=== PATIENT | male | born 1975 | race Caucasian/White ===

== ENCOUNTER 2022-03-26 19:34 | Emergency (ER) | payer SELFPAY ==
--- NOTE | ~2022-03-26 | XR_ITS ---
EXAMINATION: XR shoulder RT min 2V CLINICAL INFORMATION: Reason for Exam injury COMPARISON: None. TECHNIQUE: Three views of the shoulder FINDINGS: No acute fracture or dislocation. Mild degenerative changes of the acromioclavicular joint. Glenohumeral joint space is maintained. No soft tissue abnormality. XR/XR shoulder RT min 2V IMPRESSION: 1. No acute fracture or dislocation. 2. Mild degenerative changes of the acromioclavicular joint.
[2022-03-26 19:37] VITALS: BP 142/93; PULSE 82; RESP 17; TEMP 36.6; O2SAT 98; BMI 30.2
--- NOTE | 2022-03-26 20:24 | ED.EXTPRO ---
HPI - Extremity Problem General Chief complaint: Extremity Injury, Upper Stated complaint: fell right shoulder pain Time Seen by Provider: 03/26/22 20:24 Source: patient Mode of arrival: ambulatory Limitations: no limitations History of Present Illness HPI Narrative: 46-year-old male presents with right shoulder pain and decreased range of motion after falling into his car door at 18:00 tonight. He states this is a mechanical fall, and has had no prodromal events leading to the fall. He states pain is a deep pain and is right behind the ball of the shoulder. He has full range of motion to the elbows and wrists, but cannot adduct and abduct the shoulder. Does not report any other injuries at this time. MD Complaint: extremity pain Onset (ago): hour(s) (Several hours prior to arrival) Pain Consistency: constant Location: right and upper extremity Severity scale (1-10): 8 Quality: aching and constant Radiation: none Relieving factors: rest Exacerbating factors: range of motion and palpation Associated symptoms: denies other symptoms Related Data Previous Rx's Medication Instructions Recorded ibuprofen 600 mg tablet 600 mg PO Q6H PRN pain #60 tabs 03/26/22 Allergies Allergy/AdvReac Type Severity Reaction Status Date / Time No Known Allergies Allergy Verified 03/26/22 21:31 Review of Systems Review of Systems: Constitutional: No Fever, No Chills ENT/Mouth: No Ear Pain, No Hoarseness, No sore throat Eyes: No Eye Pain, No Swelling, No Redness, No Foreign Body Cardiovascular: No Chest Pain, No SOB Respiratory: No Cough, No Dyspnea Gastrointestinal: No Nausea, No Vomiting, No Diarrhea, No abdominal Pain Genitourinary: No Dysuria, No Hematuria Musculoskeletal: positive right shoulder pain, No Myalgias, No Joint Swelling Skin: No Skin lacerations, No rash Neuro: No Weakness, No Numbness, No Paresthesias, No Loss of Consciousness, No Dizziness, No Headache Psych: No Anxiety/Panic, No Depression Heme/Lymph: no easy bruising, no Lymphadenopathy Endocrine: No Polyuria, No Polydipsia Yes all other systems are reviewed and are negative [facility] Past Medical History Attestation statement: The following information was validated with the patient. Source: old records reviewed Social History Social History Advance Directives: No Physical Exam Vital Signs: Vital Signs: Last Vital Signs Temp 99.7 F 03/26/22 21:11 Pulse 70 03/26/22 21:11 Resp 20 03/26/22 21:11 BP 131/79 03/26/22 21:11 Pulse Ox 100 03/26/22 21:11 O2 Del Method 03/26/22 21:11 BMI result Body Mass Index 30.2 Appearance: Alert. Oriented X3. No acute distress. Eyes: Pupils equal, round and reactive to light. ENT: Pharynx normal. Neck: Normal inspection. Neck supple. CVS: Normal heart rate and rhythm. Pulses normal. Respiratory: No respiratory distress. Breath sounds normal. Abdomen: Soft and nontender. Skin: Skin warm and dry. Normal skin color. Normal skin turgor. Extremities: No bruising wounds or lesions to the right upper extremity. Decreased adduction abduction to the right shoulder. Equal admin dir strength, brisk capillary refill, positive CMS. Neuro: No motor deficit. No sensory deficit. Cranial nerves 2-12 intact. Course Course Course Narrative: 46-year-old male presents with right shoulder pain after falling into his car door. States that the pain is a deep pain and in the back of the ball of the shoulder joint. Is having a difficult time with range of motion, has had prior to the shoulder. X-rays while patient was in the emergency department rating room are negative for acute findings however does show some degenerative changes. Patient has decreased active range of motion, and pain on passive range of motion with flexion extension adduction and abduction of the shoulder. Patient has decreased range of motion inability to adduct and abduct the evening to believe that there is suspicion for rotator injury. will place patient in a sling and have patient follow-up with orthopedics. Patient is neurovascularly intact. Brisk capillary refill. Equal pulses. Patient verbalized understanding of and agrees plan of care discharge home. Verbalized understanding of signs and symptoms indicating need for emergent intervention. MDM - Extremity (Nontraumatic) MDM Narrative Medical decision making narrative: Dislocation, fracture, effusion, rotator cuff tear, labrum tear Medical Records Attestation: I reviewed the patient's medical records. Imaging Data shoulder x ray: Attestation: I personally reviewed and interpreted this imaging study as follows: Radiologist's impression: EXAMINATION: XR shoulder RT min 2V CLINICAL INFORMATION: Reason for Exam injury COMPARISON: None. TECHNIQUE: Three views of the shoulder FINDINGS: No acute fracture or dislocation. ? Mild degenerative changes of the acromioclavicular joint. Glenohumeral joint space is maintained. No soft tissue abnormality. XR/XR shoulder RT min 2V IMPRESSION: 1.? No acute fracture or dislocation. 2.? Mild degenerative changes of the acromioclavicular joint. Discharge Plan Discharge Clinical Impression: Injury of right rotator cuff, Degenerative joint disease of shoulder Patient Disposition: Home, Self-Care Instructions: Rotator Cuff Injury (ED), Arthritis (ED) Additional Instructions: You were evaluated for a shoulder injury. You have a suspected rotator cuff injury. Please follow-up with orthopedics for evaluation. Call and request appointment. Take Motrin 600 mg every 6 hours as needed for pain management, alternate with Tylenol 650 mg every 6 hours. Write down what time you take these medications to prevent accidental overdose. Use sling as needed for comfort. Thank you for choosing this emergency department for evaluation. Please follow-up with primary care physician as needed. Return to the emergency department for any new, concerning, or worsening symptoms. Prescriptions: New ibuprofen 600 mg tablet 600 mg PO Q6H PRN (Reason: pain) Qty: 60 0RF Referrals: Joey Serrano MD [Physician] - 1 week (Suspected right rotator cuff tear) Interventions: ED Discharge Assessment Last Done: 03/26/22 21:58 Discharge Date/Time: 03/26/22 22:00
[2022-03-26 21:11] VITALS: BP 131/79; PULSE 70; RESP 20; TEMP 37.6; O2SAT 100
[2022-03-26] MEDS: Ibuprofen 800 MG TABLET PO (21:41)
== END 2022-03-26 22:00 | disposition home or self-care (01) ==
PROVIDERS: Emergency Provider Emergency Medicine Emergency Medical Services
DX: S46.001A Unspecified injury of muscle(s) and tendon(s) of the rotator cuff of right shoulder, initial encounter (principal); M19.011 Primary osteoarthritis, right shoulder; X58.XXXA Exposure to other specified factors, initial encounter; Y93.9 Activity, unspecified; Y92.9 Unspecified place or not applicable; Y99.9 Unspecified external cause status
CPT/HCPCS: 73030; 99283

== ENCOUNTER → 2022-04-25 09:06 | Outpatient (BNVA) | payer SELFPAY | PROVIDERS: Visit Provider Physician Assistant | DX: S46.001A Unspecified injury of muscle(s) and tendon(s) of the rotator cuff of right shoulder, initial encounter (principal) | CPT/HCPCS: 99202 ==

== ENCOUNTER 2022-07-11 07:13 | Outpatient (REF) | payer OTHER, SELFPAY ==
--- NOTE | ~2022-07-11 | MR_ITS ---
EXAMINATION: MR SHOULDER WITHOUT CONTRAST, RIGHT CLINICAL INFORMATION: Right shoulder pain, decreased range of motion, and weakness. Injury 2 months ago. Rotator cuff tendon injury. COMPARISON: Right shoulder radiographs dated 03/26/2022. TECHNIQUE: MRI of the shoulder without contrast was performed on a high-field scanner. FINDINGS: ROTATOR CUFF: Complete, full-thickness supraspinatus tendon tear and near-complete full-thickness tearing of the infraspinatus tendon. Overall tearing measures up to 4.3 x 4.9 cm (AP by ML) with the torn tendon fibers retracted proximal to the humeral head apex. There are thin posterior infraspinatus tendon fibers remaining intact. Mild subscapularis tendinosis with distal articular surface partial tearing measuring 2.8 cm in ML dimension. Mild infraspinatus muscle atrophy. BICEPS: Intact. CORACOACROMIAL ARCH: The undersurface of the acromion is curved with subacromial spurring. Mild acromioclavicular osteoarthritis. LABRUM/CAPSULE: Heterogeneous signal within the undersurface of the superior labrum, consistent with nondisplaced degenerative tearing. Intact inferior joint capsule. GLENOHUMERAL JOINT/MARROW: Glenohumeral articular cartilage thinning with small marginal osteophytes. Moderate joint effusion. MR/MR shoulder RT wo con IMPRESSION: 1. Complete, full-thickness tear of the supraspinatus tendon with near-complete full-thickness tearing of the infraspinatus tendon. The torn tendon fibers are retracted proximal to the humeral head apex. Mild infraspinatus muscle atrophy. Mild subscapularis tendinosis with distal articular surface partial tearing. 2. Mild acromioclavicular osteoarthritis with subacromial spurring. 3. Nondisplaced undersurface degenerative tearing of the superior labrum. 4. Mild glenohumeral osteoarthritis. Moderate joint effusion.
== END 2022-07-11 07:14 | disposition home or self-care (01) ==
LOC: HO.MRI 07:13
PROVIDERS: Visit Provider Physician Assistant
DX: S46.001A Unspecified injury of muscle(s) and tendon(s) of the rotator cuff of right shoulder, initial encounter (principal)
CPT/HCPCS: 73221

== ENCOUNTER → 2022-07-29 10:41 | Outpatient (BNVA) | payer OTHER, SELFPAY | PROVIDERS: Visit Provider Orthopaedic Surgery | DX: Z13.89 Encounter for screening for other disorder (principal) ==

== ENCOUNTER → 2022-08-24 09:29 | Day surgery (SDC) | payer OTHER, SELFPAY ==
--- NOTE | 2022-08-23 09:58 | P.CONAN_ITS ---
Documented by User: Annie Garcia NP 08/23/22 12:22 HPI - Anesthesia Eval Consult details Narrative: 46yo M for Right Arthroscopic Rotator Cuff Repair *Allergies to opiates, fentanyl, and propofol* T/C with patient. Had rash and itching with finger amp revision in 2004. Received fentanyl and propofol only. States gets rash and itching with opiates. Was on oxycodone for years and needed to take benadryl with it. Likely fentanyl caused reaction. Had knee surgery in 2018 without reaction. Anesthesia record requested from [facility]. Anesthesia record reviewed. (No propofol or fentanyl. Etomidate used.) Case discussed with Dr Figueroa. Preop benadryl. [facility] Active Problems Active Problems: All Active Problems (Updated 07/29/22 @ 11:11 by Mainor Barclay) Right rotator cuff tear arthropathy (Acute) Injury of right rotator cuff (Acute) Past Medical History Medical History (Updated 07/29/22 @ 11:11 by Mainor Barclay) History of amputation of finger Surgical History Surgical History (Updated 07/29/22 @ 10:50 by Mainor Barclay) Hx of right knee surgery Social History Social History Patient Tobacco Use Status: Never used Tobacco Use of substances other than those prescribed or required for medical reasons: No Are you DNR?: No Advance Directives: No Advance Directives Information Provided: Yes Recently lost weight without trying: No Nutrition Risks: No Nutritional Risk Current occupational status: employed 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, 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 Meds Allergies Allergy/AdvReac Type Severity Reaction Status Date / Time fentanyl Allergy hives Verified 07/29/22 10:43 propofol Allergy Itching, Verified 08/18/22 16:37 Rash acetaminophen AdvReac Unknown Liver Verified 08/23/22 10:04 damage opiates AdvReac Itching Uncoded 08/18/22 16:37 Exam Exam Date and Time: August 23, 2022 0958 Assessment and Plan Assessment Anesthesia Assessment: Chart Reviewed Documented by User: Donovan Jewell MD 08/24/22 11:28 [facility] Past Medical History Medical History (Updated 07/29/22 @ 11:11 by Mainor Barclay) History of amputation of finger Family History Family history of problems with anesthesia: No Surgical History Surgical History (Updated 07/29/22 @ 10:50 by Mainor Barclay) Hx of right knee surgery History of Problems with Anesthesia: No Social History Social History Patient Tobacco Use Status: Never used Tobacco Use of substances other than those prescribed or required for medical reasons: No Are you DNR?: No Advance Directives: No Advance Directives Information Provided: Yes Recently lost weight without trying: No Nutrition Risks: No Nutritional Risk Current occupational status: employed 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, 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 Meds Allergies Allergy/AdvReac Type Severity Reaction Status Date / Time fentanyl Allergy hives Verified 07/29/22 10:43 propofol Allergy Itching, Verified 08/18/22 16:37 Rash acetaminophen AdvReac Unknown Liver Verified 08/23/22 10:04 damage opiates AdvReac Itching Uncoded 08/18/22 16:37 Exam Airway Mallampati Class: II TM Dist: >3cm Neck ROM: Full Heart: rrr Lungs: cta Assessment and Plan Final Anesthetic Review Family History of Problems with Anesthesia: No History of Problems with Anesthesia: No NPO: Yes ASA Class: II Patient Risk: Intermediate Procedure Risk: Intermediate Anesthetic Plan Anesthetic Plan: GA and Regional Block Disposition: Standard PACU
[2022-08-24] VITALS (7 sets, daily range): BP systolic 112–143; BP diastolic 68–88; PULSE 42–78; RESP 16; TEMP 36.5–36.7; O2SAT 98–100; BMI 29.7
[2022-08-24] MEDS: diphenhydrAMINE HCL 25 MG CAPSULE 50 MG PO (10:33)
[2022-08-24] MEDS: Lactated Ringers 1,000 ML 100 ML IVCONT (10:33)
--- NOTE | 2022-08-24 12:19 | MHC.SHP ---
Pre-Procedural Eval Section A Date of Service: 08/24/22 The patient is an INPATIENT: No Changes since office visit: No Cold of Flu in the past 2 weeks, No New Medical Problems, No Changes in Medication and No Patient answered all questions The History & Physical has been completed within 30 days and I have reviewed it.: Yes Section B Chief Complaint: Unspecified rotator cuff tear or rupture of right Allergies: Allergies Allergy/AdvReac Type Severity Reaction Status Date / Time fentanyl Allergy hives Verified 07/29/22 10:43 propofol Allergy Itching, Verified 08/18/22 16:37 Rash acetaminophen AdvReac Unknown Liver Verified 08/23/22 10:04 damage opiates AdvReac Itching Uncoded 08/18/22 16:37 Plan I have reviewed the history and physical and performed a pertinent physical examination on my patient. No changes have occurred unless specified. Time Spent With Patient Time: Total time managing care of this patient today ____ minutes.
--- NOTE | 2022-09-02 16:32 | P.BOP_ITS ---
Brief Operative Note Date of Service: 08/24/22 Pre-op diagnosis: Right RTC tear Post-op diagnosis: other (Massive RTC tear, right) Procedure: 1) Repair superior RTC cuff 2) Repair subscapularis Implants: Mantilla and Nephew helacoil x 5 [employer]enton Bioinductive collagen implant, Mantilla and Nephew Surgeon: Joey Serrano MD Anesthesia: GETA and regional Was an Rope Making Machine Operator used for this Procedure?: Yes Rope Making Machine Operator: Reina Aguirre Estimated blood loss (mL): 5 IV fluids (mL): 1,000 Pathology: none sent Condition: stable Disposition: PACU
--- NOTE | 2022-09-02 16:35 | W.PM.OPN ---
Operative Note Operative Note Date of Service: 08/24/22 Narrative: Date of Service: 08/24/22 Pre-op diagnosis: Right RTC tear Post-op diagnosis: other (Massive RTC tear, right) Procedure: 1) Repair superior RTC cuff 2) Repair subscapularis Implants: Mantilla and Nephew helacoil x 5 [employer]enton Bioinductive collagen implant, Mantilla and Nephew Surgeon: Joey Serrano MD Anesthesia: GETA and regional Was an Maintenance Mechanic 2Nd Shift used for this Procedure?: Yes Maintenance Mechanic 2Nd Shift: Reina Aguirre Estimated blood loss (mL): 5 IV fluids (mL): 1,000 Pathology: none sent Condition: stable Disposition: PACU Procedure in detail:? Patient was brought to the operating room and placed the the beach chair position. All bony prominences were well padded and the limb was prepped and draped in standard sterile fashion. A time out was called to identify proper site, proper procedure and proper surgeon. IV antibiotics per weight were administered. I began by making a posterolateral stab incision with a 15 blade. A blunt trochar was placed into the glenohumeral joint and I insufflated the joint with saline and a 30 degree arthroscope was placed. I established an outside- in anterior portal just distal to the biceps tendon. I then began my inspection of the glenohumeral joint. There was biceps and biceps-labral anchor with a large SLAP tear with G1 change at the inferior glenoid without associated humeral head changes. There was a full thickness undersurface RTC tear. The subcapularis had a high-grade partial thickness tear. I debrided the loose cartilage of the glenoid and the degenerative labral tearing. A biceps tenotomy was performed. I then debrided the subscapularis humeral attachment site and placed threelooped suture into the subscapularis and brought it to the insertion site with the arm internally rotated. There was excellent reproduction of the normal anatomy. I then removed the trochar and entered the subacromial space. A direct lateral portal was then established and I performed a bursectomy. The cuff was then examined. There was a retracted tear of the supra and infraspinatus with retraction.The tear was mobile (suprisingly) to the bare area. I released the suscapularis anterioly and superiorly.? I then placed two medial row double loaded anchors and then brought the suture tape through the medial cuff. I added two looped sutures at the anterior and posterior most aspect of the tear. I then debrided the bare area down to bleeding bone and, using a cross bridge configuration, brought the limbs to each of 3 lateral 5.0 anchors. This re-approximated the cuff anatomy near anatomically. Because of the tissue quality and the extent of the tear a bio-inductive collagen implnat was placed over the repaiur and tacked down with PEEK stapleds medially and 2 bone anhors laterally. I was satisfied with the repair and the position of the collagen allograft. I then performed a 5 mm subacromial decompression. Once I was satisfied with the repair final images were captured and I removed all instrumentation. Portals were closed with nylon. Patient was placed in an abduction sling, extubated and brought to the recovery room in stable condition. There were no known complications. Large RTC rehab protocol
== END | disposition home or self-care (01) ==
PROVIDERS: Visit Provider Orthopaedic Surgery
PROC: (CPT 29827; principal; 2022-08-24 11:40)
DX: M75.101 Unspecified rotator cuff tear or rupture of right shoulder, not specified as traumatic (principal); M19.011 Primary osteoarthritis, right shoulder; M25.411 Effusion, right shoulder; Z87.828 Personal history of other (healed) physical injury and trauma; Z88.8 Allergy status to other drugs, medicaments and biological substances
CPT/HCPCS: 29827; 29826; C1713; J0171; J0690; J1100; J1885; J2405

== ENCOUNTER → 2022-08-26 10:08 | Outpatient (BNVA) | payer OTHER, SELFPAY | PROVIDERS: Visit Provider Physician Assistant ==

== ENCOUNTER → 2022-09-01 11:06 | Outpatient (BNVA) | payer OTHER, SELFPAY | PROVIDERS: Visit Provider Physician Assistant ==

== ENCOUNTER → 2022-09-30 11:11 | Outpatient (BNVA) | payer OTHER, SELFPAY | PROVIDERS: Visit Provider Physician Assistant ==

== ENCOUNTER 2022-10-14 13:00 | Outpatient (RCR) | payer OTHER, SELFPAY ==
--- NOTE | 2022-08-26 12:15 | MHC.PT.EP ---
[facility] [place] Office [place] Office [place] Office [address] Mary Jo Christy [address] [phone] F: [phone] F: [phone] F: [phone] F: [phone] Physical Therapy Plan of Care Date of Evaluation: Date of Surgery: 08/24/22 Diagnosis: R RTC TEAR Assessment: Pt IS 46 YO M REFERRED TO PT FROM [facility]) PO R RTC REPAIR ON (2 DAYS AGO). NO SURGICAL REPORT IN CHART YET, BUT PER MRI Pt WITH R SUPRASPINATUS, INFRASPINATUS AND LABRAL TEARS. THIS PT TIGERTEXTED DR STALLINGS TO SEE WHICH TISSUES WERE REPAIRED. HE SAID LARGE RTC TEAR WITH SUBSCAPULARIS REPAIR.. Pt PRESENTS WITH SIGNIFICANT PAIN (REPORTS BLISTERS AND WARMTH AROUND DSG..HE CALLED ORTHO AND IS GOING IMMED AFTER PT), LIMITED ROM AND STRENGTH R UE. SHOULD BENEFIT FROM PT TO ADDRESS THESE ISSUES Frequency and Duration: The patient will be seen 2X/WK X 12 WKS Short Term Goals: 1. INCREASED AWARENESS SHOULDER CARE AND POSTURE 2. PROM R SHLDER FLEX TO 90, ER TO NEUTRAL, ABD TO 90 3. IMPROVED SLEEP Hand Hide Stretcher Goals: 1 I HEP WITH DC EX PLAN 2. FULL AROM R SHLDER 3. INCREAESED USE R UE FOR FUNCTIONAL ADLS 4. DECREASED R SHLDER PAIN TO NO GREATER THAN 3/10 Treatment Plan: Modalities to reduce pain, spasms and effusion. Manual therapy to restore motion and function. Therapeutic exercise to improve strength and flexibility. Neuromuscular re-education for posture and balance. Therapeutic activities to return to functional activities of daily living. Electronically signed by: KRANTHI GRIMES PT Please sign and return to therapist. Thank you for your referral.
--- NOTE | 2022-11-04 11:01 | MHC.PT.DC ---
[facility] [place] Office [place] Office [place] Office [address] Mary Jo Christy [address] [phone] F: [phone] F: [phone] F: [phone] F: [phone] Physical Therapy Discharge Report Diagnosis: R RTC TEAR. S/P SURGERY WITH BICEPS TENOTOMY 08/24/22 Date of Surgery: 08/24/22 Date of Evaluation: 08/26/22 Date of Discharge: 11/04/22 Treatments to Date: 9 Cancellations to Date: No Shows to Date: Discharge Status: Improved Function Independent with HEP Patient Elected to Stop Recommend MD Follow-up Discharge Summary: PER ASSESSMENT FROM LAST APPT ON 10/14/22 (3 WKS AGO :'HAS MET STGS PROGRESSING THROUGH RC PROTOCOL. CONTINUES WITH LIMITED ROM AND STRENGTH WITH MIN PAIN REPORTED. WOULD BENEFIT FROM CONTINUED PT 1X/WK X 6 WKS FOR CONTINUED PROGRESSION THROUGH PROTOCOL FOR ROM, STRENGTH AND FUNCTIONAL MOBILITY' WITH PLAN Pt DID NOT COME IN FOR FURTHER VISITS AND CALLED TO SELF DC. HAS ORTHO FU Electronically signed by: KRANTHI GRIMES PT Please sign and return to therapist. Thank you for your referral.
== END 2022-11-04 11:02 | disposition home or self-care (01) ==
LOC: HO.PT 13:00
PROVIDERS: Visit Provider Physician Assistant
DX: S46.001D Unspecified injury of muscle(s) and tendon(s) of the rotator cuff of right shoulder, subsequent encounter (principal)
CPT/HCPCS: 97110; 97140; 97162; 97535

== ENCOUNTER → 2022-11-11 11:31 | Outpatient (BNVA) | payer OTHER, SELFPAY | PROVIDERS: Visit Provider Orthopaedic Surgery | DX: M51.36 Other intervertebral disc degeneration, lumbar region (principal); Z98.890 Other specified postprocedural states | CPT/HCPCS: 99212 ==

== ENCOUNTER 2022-11-30 17:50 | Outpatient (REF) | payer OTHER, SELFPAY | END 2022-11-30 17:51 | disposition home or self-care (01) | LOC: HO.MRI 17:50 | PROVIDERS: Visit Provider Orthopaedic Surgery | DX: M51.36 Other intervertebral disc degeneration, lumbar region (principal) | CPT/HCPCS: 72148 ==

== ENCOUNTER 2023-03-03 09:41 | Outpatient (AMB) | payer OTHER, SELFPAY ==
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
== END 2023-03-03 10:24 | disposition home or self-care (01) ==
PROVIDERS: PCP Nurse Practitioner; Referring Provider Orthopaedic Surgery; Visit Provider Physician Assistant
DX: M51.36 Other intervertebral disc degeneration, lumbar region (principal)
CPT/HCPCS: 99204

== ENCOUNTER → 2023-03-03 09:41 | Outpatient (BNVA) | payer OTHER, SELFPAY | PROVIDERS: Referring Provider Orthopaedic Surgery; Visit Provider Physician Assistant ==

== ENCOUNTER 2025-04-06 20:04 | Emergency (ER) | payer OTHER, SELFPAY ==
--- NOTE | ~2025-04-06 | XR_ITS ---
CLINICAL HISTORY: worsening fracture 3 view left ankle Comparison: None provided Findings: Acute mildly displaced fracture of the lateral malleolus. No significant loss of joint space, osteophytes, or erosions. No ankle effusion. No radiopaque foreign body. IMPRESSION: Acute mildly displaced fracture of the lateral malleolus. This document has been electronically signed by: Georgette Herring MD on 04/06/2025 22:21:45
[2025-04-06 20:28] VITALS: BP 156/90; PULSE 84; RESP 18; TEMP 36.6; O2SAT 96; BMI 30.8
--- NOTE | 2025-04-06 20:30 | ED.GENADULT ---
HPI - General Adult General Chief complaint: Extremity Injury, Lower Stated complaint: left ankle; left knee injury Time Seen by Provider: 04/06/25 22:44 Source: patient Mode of arrival: ambulatory Limitations: no limitations History of Present Illness ED Provider: DR. Porras HPI narrative: a 49-year-old male s/p fall 2 days ago had fraction of the left ankle seen and evaluated at a local hospital in [place] patient was immobilized with a splint and was advised to return next week for orthopedic surgery. Patient came back home in [place] yesterday complaining of severe left ankle pain. Related Data Home Medications ?Medication ?Instructions ?Recorded ?Confirmed naproxen sodium 220 mg tablet 220 mg PO Q12H PRN 09/30/22 (Aleve) Allergies Allergy/AdvReac Type Severity Reaction Status Date / Time fentanyl Allergy hives Verified 04/06/25 20:37 propofol Allergy Itching, Verified 04/06/25 20:37 Rash acetaminophen AdvReac Unknown Liver Verified 04/06/25 20:37 damage opiates AdvReac Itching Uncoded 04/06/25 20:37 Review of Systems Review of Systems: All other systems are reviewed and are negative Constitutional: Reports as per HPI and Reports no additional constitutional complaints Eyes: Reports as per HPI and Reports no additional eye complaints Reports system reviewed and no additional complaints, except as documented Cardiovascular: Reports as per HPI and Reports no additional cardiovascular complaints Respiratory: Reports as per HPI and Reports no additional respiratory complaints Gastrointestinal: Reports as per HPI and Reports no additional gastrointestinal complaints Genitourinary: Reports no additional female genitourinary complaints Musculoskeletal: Reports no additional musculoskeletal complaints Skin/Breast: Reports system reviewed and no additional complaints, except as docu Psychiatric: Reports no additional psychiatric complaints Endocrine: Reports no additional endocrine complaints Hematologic/Lymphatic: Reports no additional hematologic/lymphatic complaints Allergic/Immunologic: Reports no additional allergic/immunologic complaints Reports system reviewed and no additional complaints, except as documented and Reports Abnormal speech present [facility] Past Medical History Medical History History of amputation of finger Surgical History Hx of right knee surgery Social History Social History Patient Tobacco Use Status: Never used Tobacco Advance Directives: No Advance Directives Information Provided: Yes Current occupational status: employed 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 Blood pressure elevated. Heart rate normal. Respiratory rate normal. Temperature normal. Oxygen saturation normal. Appearance: Alert. Oriented X3. No acute distress. Head: Normal external exam. Normocephalic. Atraumatic. No Nicole signs noted. No raccoon eyes noted Eyes: PERRLA. EOMI. Conjunctiva and sclera normal. Eyelids normal. ENT: TM's Normal. Pharynx normal. Uvula midline. Moist mucous membranes. No trismus noted. No drooling noted. No muffled voice noted. Neck: Normal inspection. Neck supple. FROM. No adenopathy. Thyroid Normal. No meningeal signs. No neck mass noted. CVS: Normal heart rate and rhythm. Heart sound normal. No murmurs noted. Pulses normal throughout. Respiratory: No respiratory distress. Painless inspiration. Breath sounds normal. No wheezes/rales/rhonchi noted. Chest nontender. No accessory muscle usage noted or decreased air movement noted. Abdomen: Soft and nontender. Bowel sounds normal in all 4 quadrants. No distention noted. No organomegaly noted. No visible injury noted. Back: No CVA tenderness. Full range of motion noted. Skin: Skin warm and dry. Normal skin color. Normal skin turgor. No rashes/lesions/lacerations noted. Extremities: Left lower extremity exam: Posterior splint in place that was removed, swelling and tenderness over the lateral malleolus, +PT/DP, cap refill less than 3 seconds. No ischemic changes. Neuro: Oriented X 3. Cranial nerve exam: II-XII are grossly intact No motor deficit. No sensory deficit. Reflexes normal. Course Course Course Narrative: RME: 49 yold male presents to the ED for left lower extremity pain after falling in [place] yesterday whe he was diagnosed fracture of ankle and placed in splint. patient states left knee pain also. patient not able tolerate pain Reevaluation(s) Reevaluation #1: 49-year-old male with left ankle lateral malleolar fracture, posterior splint was removed and replaced with a new splint in the ED, no compartment syndrome, instructed to keep the splint, no weight bearing patient has crutches from the other hospital. And follow-up with our orthopedic office. Time: 23:18 Procedures Orthopedic Splinting/Casting Injury #1: Side: left Lower Extremity Injury Location: knee Lower Extremity Immobilizer: posterior splint and stirrup splint Medical Decision Making Differential Diagnosis Differential Diagnoses: The differential diagnosis associated with the presentation includes ( Compartment syndrome, neurovascular compromise, ankle fracture , knee fracture.) Admission/Observation Consideration of admission/observation: Escalation of care including admission/observation considered Independent Interpretation I performed an independent interpretation of an: Plain X-Ray ( Left ankle/ left knee:Acute mildly displaced fracture of the lateral malleolus. No significant loss of joint space, osteophytes, or erosions. No ankle effusion. No radiopaque foreign body.) Radiology Impression Discussion of test interpretation with radiology: I have reviewed the radiologist's reading. Discharge Plan Discharge Clinical Impression: Lateral malleolar fracture Patient Disposition: Home, Self-Care Instructions: Ankle Fracture (ED) Additional Instructions: keep the splint. Use the crutches and avoid bearing weight on the left ankle. Prescriptions: No Action naproxen sodium [Aleve] 220 mg tablet 220 mg PO Q12H PRN Referrals: Joey Serrano MD [Physician, Orthopedics] Interventions: ED Discharge Assessment Last Done: 04/06/25 23:48 Discharge Date/Time: 04/06/25 23:49 Print Language: Burundian
--- OUTSIDE RECORDS SUMMARY | 2025-04-06 21:19 | XMS_ITS | Clinical Summary ---
Author Organization [facility] Address [address] [place] [id number] Phone Care Team Providers Care Rotary Envelope Machine Operator Name Role Phone Shira Paz MD Primary Care Provider Allergies Active Allergy Reactions Criticality Noted Date Comments Fentanyl Hives,Rash Low 08/09/2008 Oxycodone-Acetaminophen Itching Medium 09/10/2024 Was addicted to it. Propofol Hives,Rash Low 08/09/2008 Medications albuterol 90 mcg/actuation inhaler Inhale 2 puffs into the lungs every 4 (four) hours as needed. 4 Active amLODIPine (NORVASC) 10 MG tablet take 1 tablet (10 mg) by mouth once per day. Active tadalafiL (CIALIS) 20 MG tablet TAKE 1 TABLET (20 MG) BY MOUTH DAILY IF NEEDED FOR ERECTILE DYSFUNCTION Active HYDROcodone-dave taminophen (NORCO) 5-325 mg per tablet Take 1 tablet by mouth every 6 (six) hours as needed for pain (specific location in comments). Partial fill ok. Post procedure. 5 tablet 5 Active Additional Information Patient not taking.Reported on 02/18/2025 LORazepam (ATIVAN) 1 MG tablet Take 1 tablet (1 mg total) by mouth as needed for anxiety. Take 1 tablet by mouth 20 minutes prior surgery 1 tablet 5 Active Additional Information Patient not taking.Reported on 11/11/2024 moxifloxacin (VIGAMOX) 0.5 % ophthalmic solution Place 1 drop into the right eye 4 (four) times a day. Start 3 (three) days prior to the procedure. Continue post procedure. 3 mL 1 5 Active Additional Information Patient not taking.Reported on 02/18/2025 prednisoLONE acetate (PRED FORTE) 1 % ophthalmic suspension Place 1 drop into the right eye 4 (four) times a day. Post procedure. 5 mL 1 5 Active Additional Information Patient not taking.Reported on 02/18/2025 Encounters Date Type Department Care Team Description 02/18/2025 2:10 PM EDT Office [facility] [address] [place] [address] Ute Bain MD Ectasia of cornea, right (Primary Dx) from Last 3 Months Social History Tobacco Use Types Packs/Day Years Used Date Smoking Tobacco: Never Smokeless Tobacco: Never Tobacco Cessation:Counseling Given: Not Answered Education Answer Date Recorded Are you interested in more education? Not on tai e 10/11/2023 Are you concerned about learning? Not on file 10/11/2023 No 10/11/2023 No 10/11/2023 Digital Access Answer Date Recorded No 10/11/2023 No 10/11/2023 Reliable internet access at home? Not on file 10/11/2023 Device with a working camera? Not on file Sex and Gender Information Value Date Recorded Sex Assigned at Not on file Legal Sex Male 10:56 AM EDT Gender Identity Not on file Sexual Orientation Not on file Last Filed Vital Signs Vital Sign Reading Time Taken Comments Blood Pressure 170/98 09/04/2024 2:53 PM EDT Pulse 75 09/04/2024 2:53 PM EDT Temperature 36.7 C (98 F) 09/04/2024 2:53 PM EDT Respiratory Rate 16 09/04/2024 2:53 PM EDT Oxygen Saturation 98% 09/04/2024 2:53 PM EDT Inhaled Oxygen Concentration - - Weight - - Height - - Body Mass Index - - Plan of Treatment Upcoming Encounters Date Type Department Care Team (Late st Contact Info) Description 04/09/2025 3:00 PM EST Office Visit [facility] [address] [place] [address] Doroteo Connor MD [address], [address] [place] [address] [email or web address] 08/18/2025 3:00 PM EDT Office Visit [facility] [address] [place] [address] Megan Spear, [address] [address] [email or web address] 08/18/2025 3:30 PM EDT Office Visit [facility] [address] [place] [address] Ute Bain MD [address] [facility] [address], [address] [place] [address] [email or web address] Health Maintenance Due Date Last Done Comments DEPRESSION SCREENING 1985 HEPATITIS C SCREENING 09/04/1991 HIV ONE-TIME SCREENING (18-6 5 YEARS) 09/04/1991 COLOGUARD 2018 COLONOSCOPY 2018 COLORECTAL CANCER SCREENING 2018 FIT TEST 2018 FOBT 2018 SIGMOIDOSCOPY 2018 VIRTUAL COLONOSCOPY 2018 PNEUMOCOCCAL VACCINES (50+ years) (1 of 1 - PCV) 09/04/2023 ZOSTER VACCINES (1 of 2) 09/04/2023 INFLUENZA VACCINE (#1) 2024 COVID-19 VACCINE ( - 2024-2 6 season) 2025 Adult Td,Tdap Booster 05/29/2028 05/29/2018 LIPID PANEL 10/10/2028 10/11/2023, 10/11/2023 RSV VACCINE (1 - 1-dose 75+ series) 2048 SMOKING STATUS SCREENING (On ce After 26 Yrs) Completed 02/18/2025 HEPATITIS A VACCINES Aged Out No long er eligible based on patient's age to complete this topic HIB VACCINES Aged Out No longer eligi ble based on patient's age to complete this topic IPV VACCINES Aged Out No longer eligi ble based on patient's age to complete this topic MENINGOCOCCAL VACCINES (ACWY) Aged Out No longer eligible based on patient's age to complete this topic MENINGOCOCCAL VACCINES (B) Aged Out N o longer eligible based on patient's age to complete this topic Medical Devices Not on file Procedures Procedure Name Priority Date/Time Associated Diagnosis Comments CORNEAL TOPOGRAPHY - OU - BOTH EYES Routine 02/18/2025 2:19 PM EDT Ectasia of cornea, right LIPID PANEL Routine 10/11/2023 11:05 AM EDT Erectile dysfunction, unspecified erectile dysfunction type Screening for lipid disorders Primary hypertension from Last 3 Months or Most Recently Relevant to Health Maintenance Results * Corneal Topography - OU - Both Eyes (02/18/2025 2:19 PM EDT) Anatomical Region Laterality Modality Head Optical Coherenc e Tomography Other Narrative 02/18/2025 3:09 PM EDT S/p corneal collagen crosslinking overall stable us Ute Holbrook MD OPHTHALMOLOGY [facility] G Final Result * (ABNORMAL) Lipid panel (10/11/2023 11:05 AM EDT) HDL 69 mg/dL [facility] Comment: Interpretation <40 mg/dL: Low HDL cholesterol (major risk factor for CHD) Greater than or equal to 60 mg/dL: High HDL cholesterol ( negative risk factor for CHD) HDL - cholesterol is affected by a number of factors, e.g. smoking, excerise, hormones, sex and age. CHOLESTEROL 202 0 - 240 mg/dL [facility] TRIGLYCERIDES 113 30 - 160 mg/dL [facility] LDL 110 50 - 129 mg/dL [facility] Comment: LDL levels in terms of risk for coronary heart disease: <100 mg/dL: Optimal 100-129 mg/dL: Near or above optimal 130-159 mg/dL: Borderline high 160-189 mg/dL: High >190 mg/dL: Very High CARDIAC RISK RATIO 2.9(L) 3.4 - 5.0 C [facility] Blood 10/11/2023 11:0 5 AM EDT 10/11/2023 11:09 AM EDT Nae Jimenes PATCHING MACHINE OPERATOR LAB BLOOD BKR ORDERABL ES Final Result [address] [address] from Last 3 Months or Most Recently Relevant to Health Maintenance Insurance [employer] DIRECT [employer] DIRECT [employer] DIRECT PLANS DIRECT DIRECT PLANS DIRECT Care Teams Rotary Envelope Machine Operator Relationship Specialty Start Date End Date Shira Paz MD [address] [place] [address] [email or web address] PCP - General Family Medicine 06/12/24 Additional Source Comments The information contained in this document represents components of the legal health record. It is not the complete legal health record.[facility]
--- OUTSIDE RECORDS SUMMARY | 2025-04-06 21:19 | XMS_ITS | Encounter Summary ---
Author Organization [employer] Address [address] [facility] [address] [place] [address] Care Team Providers Care Hydraulic Specialist Name Role Phone [facility] Primary Care Provider [phone] Reason for Visit * Reason Comments Med Refill Encounter Details Date Type Department Care Team ([facility] Contact Info) Description 02/25/2025 Refill [facility] [address] [place] [address] [facility] [address] [place] [address] Erectile dysfunction, unspecified erectile dysfunction type Social History Tobacco Use Types Packs/Day Years Used Date Smoking Tobacco: Never Smokeless Tobacco: Never Alcohol Use Standard Drinks/Week Comments Yes 14 (1 standard drink = 0.6 oz pu re alcohol) Housing Stability Answer Date Recorded What is your housing situation today? I have carmen barbosa 10/11/[address] you li ve. Do you have problems with any of the following? Pests such as bugs, ants, or mice 10/11/2023 Food Insecurity Answer Date Recorded Within the past 12 months, y ou worried that your food would run out before you got money to buy more: Never True 10/11/2023 Within the past 12 months,th e food you bought just didn't last and you didn't have enough money to get more: Never True Transportation Answer Date Recorded In the past 12 months, has l ack of transportation kept you from medical appts, meetings, work or from getting things needed for daily living? No 10/11/2023 Utilities Answer Date Recorded In the past 12 months, has t he electric, gas, oil or water company threatened to shut off services in your home? No 10/11/2023 Depression Answer Date Recorded Patient Health Questionnaire-2 Score 0 10/11/2023 Sex and Gender Information Value Date Recorded Sex Assigned at Male 07/20/2022 2:39 PM EST Legal Sex Male 2:37 PM EST Gender Identity Male 07/20/2022 2:39 PM EST Sexual Orientation Straight 07/20/2022 2: 39 PM EST documented as of this encounter Plan of Treatment Upcoming Encounters Date Type Department Care Team (Late st Contact Info) Description 04/11/2025 11:00 AM EST Office Visit [facility] [address] [place] [address] [facility] [address] [place] [address] documented as of this encounter Visit Diagnoses Diagnosis Erectile dysfunction, unspecified erectile dysfunction type documented in this encounter Care Teams Hydraulic Specialist Relationship Specialty Start Date End Date [facility] [address] [place] [address] PCP - General Family Medicine 08/12/22 documented as of this encounter
--- OUTSIDE RECORDS SUMMARY | 2025-04-06 21:19 | XMS_ITS | Clinical Summary ---
Author Organization [employer] Address [address] [place] [address] [address] [place] [address] Care Team Providers Care Terminologist Name Role Phone [facility] Primary Care Provider [phone] Allergies Active Allergy Reactions Criticality Noted Date Comments Fentanyl Rash Low 09/07/2022 Propofol Rash Low 09/07/2022 Medications albuterol (ProAir HFA) 108 (90 Base) MCG/ACT inhalerIndicatio ns:Community acquired pneumonia, unspecified laterality Inhale 2 puffs every 4 (four) hours if needed for wheezing or shortness of breath. 8.5 g 4 Active tadalafil (Cialis) 20 MG tabletIndication s:Erectile dysfunction, unspecified erectile dysfunction type TAKE 1 TABLET (20 MG) BY MOUTH DAILY IF NEEDED FOR ERECTILE DYSFUNCTION 30 tablet 3 5 Active amLODIPine (Norvasc) 10 MG tabletIndication s:Primary hypertension TAKE 1 TABLET (10 MG) BY MOUTH ONCE PER DAY. 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, TURNAROUND ENGINEER Erectile dysfunction, unspecified erectile dysfunction type from Last 3 Months Immunizations Immunization Administration Dates Next Due Tdap 05/29/2018 Family History Medical History Relation Name Comments Hypertension Father Alzheimer's disease Maternal Grandmother Dementia Mother Stroke Paternal Grandfather Cancer Neg Hx Relation Name Status Comments Father Maternal Grandmother Mother Paternal Grandfather Social History Tobacco Use Types Packs/Day Years Used Date Smoking Tobacco: Never Smokeless Tobacco: Never Tobacco Cessation:Counseling Given: Not Answered Alcohol Use Standard Drinks/Week Comments Yes 14 [...] Orientation Straight 07/20/2022 2: 39 PM EST Last Filed Vital Signs Vital Sign Reading Time Taken Comments Blood Pressure 145/84 12/01/2023 3:46 PM EDT Pulse 100 12/01/2023 3:46 PM EDT Temperature 37.1 C (98.8 F) 12/01/2023 3:46 PM EDT Respiratory Rate 16 10/11/2023 10:04 AM EDT Oxygen Saturation 96% 12/01/2023 3:46 PM EDT Inhaled Oxygen Concentration - - Weight 107 kg (236 lb 12.8 oz) 12/01/2023 3:46 P M EDT Height 188 cm (6' 2 ) 12/01/2023 3:46 PM EDT Body Mass Index 30.4 12/01/2023 3:46 PM EDT Plan of Treatment Upcoming Encounters Date Type Department Care Team (Late st Contact Info) Description 04/11/2025 11:00 AM EST Office Visit [facility] [address] [place] [address] [place], [place], [facility] [address] [place] [address] Health Maintenance Due Date Last Done Comments CT Colonography 1973 Colonoscopy 1973 FIT 1973 Sigmoidoscopy 1973 Disability Screening 1973 Alcohol/Substance Use Screening 1985 Family Planning (PISQ) 1988 Hepatitis B Vaccines (1 of 3 - 19+ 3-dose series) 1992 Pneumococcal Vaccine: 50+ Years (1 of 1 - PCV) 09/04/2023 Zoster Vaccines (1 of 2) 09/04/2023 FOBT 09/06/2024 09/07/2023 Depression Screening 10/10/2024 10/11/2023, 10/11/2023 SDOH Screening 10/10/2024 10/11/2023 Tobacco Screening 11/30/2024 12/01/2023 COVID-19 Vaccine (1 - 2023-2 5 season) 2025 Influenza Vaccine (#1) 2025 Colorectal Cancer Screening 09/06/2026 FIT DNA/Cologuard 09/06/2026 09/07/2023 DTaP/Tdap/Td Vaccines (2 - T d or Tdap) 05/29/2028 05/29/2018 Lipid Panel 10/10/2028 10/11/2023 RSV Patients and Patients Aged 60 years or older (1 - 1-dose 75+ series) 2048 HIB Vaccines Aged Out No longer eligi ble based on patient's age to complete this topic HIV Screening Discontinued HPV Vaccines Aged Out No longer eligi ble based on patient's age to complete this topic Hepatitis A Vaccines Aged Out No long er eligible based on patient's age to complete this topic Hepatitis C Screening Discontinued IPV Vaccines Aged Out No longer eligi ble based on patient's age to complete this topic Meningococcal B Vaccine Aged Out No l onger eligible based on patient's age to complete this topic Meningococcal Vaccine Aged Out No suzie justyn eligible based on patient's age to complete this topic RSV under 20 months Aged Out No longe r eligible based on patient's age to complete this topic Rotavirus Vaccines Aged Out No longer eligible based on patient's age to complete this topic Procedures Procedure Name Priority Date/Time Associated Diagnosis Comments LIPID PANEL, STANDARD Routine 10/11/2023 Screening for lipid disorders LAB COLOGUARD COLON CANCER SCREEN Routine 09/07/2023 Colon cancer screening from Last 3 Months or Most Recently Relevant to Health Maintenance Results * Lipid Panel, Standard (10/11/2023) Blood Venous blood specimen / Unknown [facility] LAB BLOOD ORDERABLES Catarina l Result EXTERNAL LAB * Cologuard?? colon cancer screening (09/07/2023) Stool [facility] hospital LAB MOLECULAR DIAGNOSTICS ORDERABLES Final Result Performing Organization Address City/[facility]/ZIP Co de Phone Number EXTERNAL LAB from Last 3 Months or Most Recently Relevant to Health Maintenance Insurance [facility] Care Teams Terminologist Relationship Specialty Start Date End Date Nae Jimenes FNP [address] [place] [address] PCP - General Family Medicine 08/12/22
--- NOTE | 2025-04-06 22:07 | PC.NURSE ---
Patient awake and alert. skin pwd, resp even and non labored. speaking in full, clear sentences. splint in place to left lower extremity with positive CSM. patient reports he had a fall a few days ago when walking out of a restaurant and was seen in another ED and dx with a left lower extremity fracture. c/o increased left knee pain and increased left lower extremity pain. reports he has been taking ibuprofen for pain control.
--- NOTE | 2025-04-06 22:46 | PC.NURSE ---
this RN assumed care of this pt 2approximately this time, pt noted to be laying semi renee's in the hopsital stretcher, provider Galina Porras at the bedside assessing pt
[2025-04-06 23:42] VITALS: BP 144/83; PULSE 72; RESP 18; TEMP 37; O2SAT 98
[2025-04-06 23:48] VITALS: BP 144/83; PULSE 72; RESP 18; TEMP 37; O2SAT 98
== END 2025-04-06 23:49 | disposition home or self-care (01) ==
PROVIDERS: Emergency Provider Emergency Medicine
DX: S82.62XA Displaced fracture of lateral malleolus of left fibula, initial encounter for closed fracture (principal); M79.605 Pain in left leg; X58.XXXA Exposure to other specified factors, initial encounter; Y93.9 Activity, unspecified; Y92.9 Unspecified place or not applicable; Y99.8 Other external cause status; Z79.899 Other long term (current) drug therapy
CPT/HCPCS: 29505; 73564; 73610; 99283

== ENCOUNTER → 2025-04-06 20:37 | Outpatient (BNV) | payer OTHER, SELFPAY | PROVIDERS: Visit Provider Student in an Organized Health Care Education/Training Program | DX: M25.572 Pain in left ankle and joints of left foot (principal); S82.892A Other fracture of left lower leg, initial encounter for closed fracture; W19.XXXA Unspecified fall, initial encounter | CPT/HCPCS: 73564; 73610 ==

== ENCOUNTER 2025-04-08 09:43 | Outpatient (AMB) | payer OTHER, SELFPAY ==
--- NOTE | 2025-04-08 10:07 | A.OFFVIS_ITS ---
Intake Visit Reasons: ED- Ankle fx DOI 04/03/25 Intake Note: Irvin is a 49 year old male who presents today for a evaluation of his left ankle injury, DOI 04/04/25. Patient reports he was coming out of a bar and he did have a couple drinks and he missed stepped and which lead to fall. He states his pain is worse with touch. Patient states that he uses his crutches to move around. He states that he has tried taking ibuprofen with no relief. Allergies fentanyl Allergy (Verified 04/08/25 10:14) hives propofol Allergy (Verified 04/08/25 10:14) Itching, Rash acetaminophen Adverse Reaction (Unknown, Verified 04/08/25 10:14) Liver damage opiates Adverse Reaction (Uncoded 04/06/25 20:37) Itching HPI HPI ED- Ankle fx DOI 04/03/25: Details: Mr. Romero is a 49-year-old male who presents to the office today for evaluation of a left ankle injury that he sustained on 04/03/2025. He states that he was leaving a bar and somehow fell on the left lower extremity. He was in [facility] at the time and was seen in the local emergency department. When he returned home he presented to [facility] emergency department for evaluation. He was placed into a posterior splint and instructed to follow up with orthopedics outpatient for further evaluation and treatment. 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 No areas of skin breakdown or fracture blistering at this time. Able to slightly dorsiflex and plantar flex but is limited due to pain and edema. Sensation is reportedly intact. Pedal pulse intact. Psych Appearance: grossly normal Mental Status: mental status grossly normal Attitude: cooperative Office Procedures Casting/Splints [id number] Leg splint application Procedure code (CPT) selection complete Assessment & Plan Assessment & Plan (1) Closed fracture of left distal fibula: Code(s): S82.832A - Other fracture of upper and lower end of left fibula, initial encounter for closed fracture Category: Medical Plan Mr. Romero is a 49-year-old male who presents to the office today for evaluation of a left ankle injury that he sustained on 04/03/2025. He states that he was leaving a bar and somehow fell on the left lower extremity. He was in [place] at the time and was seen in the local emergency department. When he returned home he presented to [facility] emergency department for evaluation. He was placed into a posterior splint and instructed to follow up with orthopedics outpatient for further evaluation and treatment. I explained the extent of the injury to the patient and options available which include surgical intervention. I explained the procedure in detail along with the length of recovery and rehab course. I explained the risk, benefits and alternatives.? Risks including, but not limited to infection, blood clots, bleeding, delayed healing, non union malunion, post-traumatic arthritis and nerve/tissue damage to surrounding areas, numbness, scar sensitivity, irritation from plates/screws, hardware loosening or breakage, and need for later removal.? Benefits include, restoring proper alignment, improving ankle mobility and function, reduced long-term risk of arthritis, chronic pain or deformity, earlier mobilization of compared to no-operative treatment in unstable fractures. Alternatives include, Non-surgical management; casting or splinting with strict nonweightbearing. The patient had ample opportunity to ask questions. All questions were answered to the patient's satisfaction. The patient verbalized understanding and agreed to move forward with a left ankle open reduction internal fixation performed by Dr. Serrano. The patient demonstrates understanding of the risks, benefits and alternatives and wishes to proceed.? X-rays of the left ankle which were obtained while in the office today and were reviewed by me, Reina Aguirre PA-C, revealed distal fibular fracture, medial malleolar avulsion fracture, and a small fracture along the medial aspect of the distal MTP. The patient will return to the clinic on 04/14/2025 for skin check. Educated the patient on the importance of elevating on 3 pillows above heart level as much as possible to reduce the swelling in order to proceed with surgical intervention. He was placed back into a custom molded posterior splint and instructed to non weightbear on the left lower extremity. Additionally, I sent a prescription for ibuprofen 800 mg to be taken p.o. Q 8 hours as needed PRN pain and swelling. Follow up will be on 04/14/2025, sooner if needed. Orders: Orders XR ankle LT min 3V Today M25.579 - Pain in unspecified ankle and joints of unspecified foot XR ankle LT 2V Today S82.899A - Other fracture of unspecified lower leg, initial encounter for closed fracture Medications: New ibuprofen 800 mg PO Q8H PRN 90 tabs 0RF pain 30 days Coding Level of Care Code Est Pt Level 4 (94399) Diagnoses Closed fracture of left distal fibula S82.832A CPT Codes Splint - CPT: 22016-Lceis Leg splint application ([id number])
--- OUTSIDE RECORDS SUMMARY | 2025-04-08 10:57 | XMS_ITS | Encounter Summary ---
Author Organization [employer] Address [address] [place] [address] Care Team Providers Care Solar Mechanical Engineer Name Role Phone [facility] Primary Care Provider [phone] Reason for Visit * Reason Comments Med Refill Encounter Details Date Type Department Care Team ([facility] Contact Info) Description 02/25/2025 Refill [facility] [address] [place] [address] [facility] [address] [place] [address] Erectile dysfunction, unspecified erectile dysfunction type Social [...] 04/11/2025 11:00 AM EST Office Visit Giovana [facility] [address] [place] [address] [facility] [address] [place] [address] documented as of this encounter Visit Diagnoses Diagnosis Erectile dysfunction, unspecified erectile dysfunction type documented in this encounter Care Teams Solar Mechanical Engineer Relationship Specialty Start Date End Date [facility] N[facility] [address] [place] [address] PCP - General Family Medicine 08/12/22 documented as of this encounter
--- OUTSIDE RECORDS SUMMARY | 2025-04-08 10:57 | XMS_ITS | Clinical Summary ---
Author Organization [facility] Address [address] [place] [address] Phone Care Team Providers Care Travel Freight And Passenger Agent Name Role Phone Shira Paz MD Primary Care Provider [phone] Allergies Active Allergy Reactions Criticality Noted Date [...] 2:10 PM EDT Office [facility] [address] [place] [address] Ute Bain MD Ectasia of cornea, right [...] 3:00 PM EST Office Visit [facility] [address] [place] [address] Doroteo oCnnor MD [address] [facility], [address] [place] [address] [email or web address] 08/18/2025 3:00 PM EDT Office Visit [facility] [place] [address] [place] [address] Megan Spear, [address] [address] [email or web address] 08/18/2025 3:30 PM EDT Office Visit [facility]NY [facility] [address] [place] [address] Ute Bain MD [address] [facility], [address] [place] [address] [email or web address] Maintenance Due Date Last Done Comments [...] (10/11/2023 11:05 AM EDT) HDL 69 mg/dL [facility] Comment: Interpretation <40 mg/dL: Low HDL cholesterol (major risk factor for CHD) Greater than or equal to 60 mg/dL: High HDL cholesterol ( negative risk factor for CHD) HDL - cholesterol is affected by a number of factors, e.g. smoking, excerise, hormones, sex and age. CHOLESTEROL 202 0 - 240 mg/dL [facility] TRIGLYCERIDES 113 30 - 160 mg/dL [facility] LDL 110 50 - 129 mg/dL [facility] Comment: LDL levels in terms of risk for coronary heart disease: <100 mg/dL: Optimal 100-129 mg/dL: Near or above optimal 130-159 mg/dL: Borderline high 160-189 mg/dL: High >190 mg/dL: Very High CARDIAC RISK RATIO 2.9(L) 3.4 - 5.0 [facility] Blood 10/11/2023 11:0 5 AM EDT 10/11/2023 11:09 AM EDT Nae Jimenes MEALS ON WHEELS DRIVER LAB BLOOD BKR ORDERABL ES Final Result [address] [address] from Last 3 Months or Most Recently Relevant to Health Maintenance Insurance [employer] DIRECT [employer] DIRECT [employer] DIRECT PLANS DIRECT DIRECT PLANS DIRECT Care Teams Travel Freight And Passenger Agent Relationship Specialty Start Date End Date Shira Paz MD [address] [place] [address] [email or web address] PCP - General Family Medicine 06/12/24 Additional Source Comments The information contained in this document represents components of the legal health record. It is not the complete legal health record.[facility]
--- OUTSIDE RECORDS SUMMARY | 2025-04-08 10:57 | XMS_ITS | Clinical Summary ---
Author Organization [employer] Address [address] [place] [address] 7 [place] [address] Care Team Providers Care Garbage Pick Up Man Name Role Phone [facility] Primary Care Provider [phone] Allergies Active Allergy Reactions Criticality Noted Date [...] Department Care Team Description 02/27/2025 Refill Giovana [facility] [address] [place] [address] [facility] Primary hypertension 02/25/2025 Refill [place] [facility] [address] [place] [address] Frontiero, Nae, SLEEVE SETTER LOCKSTITCH Erectile dysfunction, unspecified erectile dysfunction type from [...] 04/11/2025 11:00 AM EST Office Visit Giovana [facility] [address] [place] [address] [place], [place], [facility] [address] [place] [address] Health Maintenance Due Date Last Done Comments [...] (10/11/2023) Blood Venous blood specimen / Unknown [facility] BLOOD ORDERABLES Catarina l Result EXTERNAL LAB * Cologuard?? colon cancer screening (09/07/2023) Stool [facility] MOLECULAR DIAGNOSTICS ORDERABLES Final Result Performing Organization Address City/[facility]/ZIP Co de Phone Number EXTERNAL LAB from Last 3 Months or Most Recently Relevant to Health Maintenance Insurance [facility] Care Teams Garbage Pick Up Man Relationship Specialty Start Date End Date Nae Jimenes FNP [address] [place] [address] PCP - General Family Medicine 08/12/22
== END 2025-04-08 11:29 | disposition home or self-care (01) ==
LOC: HO.HOS 09:44
PROVIDERS: Visit Provider Physician Assistant
DX: S82.832A Other fracture of upper and lower end of left fibula, initial encounter for closed fracture (principal)
CPT/HCPCS: 27786; 99214

== ENCOUNTER → 2025-04-08 09:46 | Outpatient (BNV) | payer OTHER, SELFPAY | PROVIDERS: Visit Provider Radiology Diagnostic Radiology | DX: S82.62XA Displaced fracture of lateral malleolus of left fibula, initial encounter for closed fracture (principal); S82.842A Displaced bimalleolar fracture of left lower leg, initial encounter for closed fracture; M25.472 Effusion, left ankle; M79.89 Other specified soft tissue disorders | CPT/HCPCS: 73600; 73610 ==

== ENCOUNTER 2025-04-08 10:20 | Outpatient (REF) | payer OTHER, SELFPAY ==
--- NOTE | ~2025-04-08 | XR_ITS ---
EXAMINATION: XR ANKLE, left CLINICAL INFORMATION: S82.899A - Other fracture of unspecified lower leg, COMPARISON: 04/08/2025 TECHNIQUE: AP, lateral, and mortise views lower extremity joint, ankle. FINDINGS: Ankle mortise is congruent. There is no widening of the syndesmosis. Talar dome is intact. Again seen is a fracture of the inferior medial malleolar tip. Also, there is an oblique fracture involving the distal fibula. Fracture line extends above and lateral from the syndesmosis. There is persistent 2 mm step-off. XR/XR ankle LT 2V IMPRESSION: Stable oblique lateral malleolar fracture extending superior laterally from the syndesmosis and inferior medial malleolar tip avulsion. Electronically signed by: Dino Medeiros MD 04/08/2025 10:57 AM [facility]
--- NOTE | ~2025-04-08 | XR_ITS ---
EXAMINATION: XR ANKLE, LEFT CLINICAL INFORMATION: M25.579 - Pain in unspecified ankle and joints of unspecified foot COMPARISON: Previous x-ray April 06, 2025 TECHNIQUE: AP, lateral, and mortise views of the left ankle. FINDINGS: Oblique fracture of the distal fibular shaft. Slight interval increase in lateral displacement of the distal fibula with respect to the more proximal shaft by 2 to 3 mm. Minimally displaced avulsion fracture of the tip of the medial malleolus. Normal ankle mortise. Diffuse soft tissue swelling and ankle joint effusion. Small calcaneal spurs. XR/XR ankle LT min 3V IMPRESSION: Bimalleolar ankle fracture, joint effusion and soft tissue swelling. Electronically signed by: Shilpi Murphy MD 04/08/2025 10:15 AM [facility]
== END 2025-04-08 10:21 | disposition home or self-care (01) ==
LOC: HO.HOSX 10:20
PROVIDERS: Visit Provider Physician Assistant
DX: S82.832A Other fracture of upper and lower end of left fibula, initial encounter for closed fracture (principal); W19.XXXA Unspecified fall, initial encounter; Y92.59 Other trade areas as the place of occurrence of the external cause
CPT/HCPCS: 27786; 73600; 73610; 99212

== ENCOUNTER 2025-04-14 11:27 | Outpatient (AMB) | payer OTHER, SELFPAY ==
--- NOTE | 2025-04-14 11:30 | MHC.OFFVIS ---
Intake Visit Reasons: OV-Left Ankle fx DOI 04/03/25-follow up Intake Note: Irvin is a 49 year old male who presents today for a Pre Operative Swelling Check of his Left Ankle Fracture from 04/03/2025. Patient reports that the ankle has been feeling good, minimal pain. He has his PCP office re-wrap the splint as it was feeling loose Patient is currently booked for surgery on 04/17/25. Allergies fentanyl Allergy (Intermediate, Verified 04/14/25 10:23) hives propofol Allergy (Intermediate, Verified 04/14/25 10:23) Itching, Rash acetaminophen Adverse Reaction (Intermediate, Verified 04/14/25 10:23) Liver damage opiates Adverse Reaction (Intermediate, Uncoded 04/14/25 10:23) Itching HPI HPI OV-Left Ankle fx DOI 04/03/25-follow up: Details: Irvin is a 49 year old male who presents today for a Pre Operative Swelling Check of his Left Ankle Fracture from 04/03/2025. Patient reports that the ankle has been feeling good, minimal pain. He has his PCP office re-wrap the splint as it was feeling loose Patient is currently booked for surgery on 04/17/25. 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 No areas of skin breakdown or fracture blistering at this time. Able to slightly dorsiflex and plantar flex but is limited due to pain and edema. Sensation is reportedly intact. Pedal pulse intact. Psych Appearance: grossly normal Mental Status: mental status grossly normal Attitude: cooperative Office Procedures Casting/Splints [id number] Leg splint application Procedure code (CPT) selection complete Assessment & Plan Assessment & Plan (1) Closed fracture of left distal fibula: Code(s): S82.832A - Other fracture of upper and lower end of left fibula, initial encounter for closed fracture Category: Medical Plan Irvin is a 49 year old male who presents today for a Pre Operative Swelling Check of his Left Ankle Fracture from 04/03/2025. Patient reports that the ankle has been feeling good, minimal pain. He has his PCP office re-wrap the splint as it was feeling loose Patient is currently booked for surgery on 04/17/25. Dr. Serrano was available to see the patient in the office today and discuss surgical intervention. Dr. Serrano and Michael explained the extent of the injury to the patient and options available which include surgical intervention. Dr. Serrano and Michael explained the procedure in detail along with the length of recovery and rehab course. Dr. Serrano and Michael explained the risk, benefits and alternatives.? Risks including, but not limited to infection, blood clots, bleeding, delayed healing, non union malunion, post-traumatic arthritis and nerve/tissue damage to surrounding areas, numbness, scar sensitivity, irritation from plates/screws, hardware loosening or breakage, and need for later removal.? Benefits include, restoring proper alignment, improving ankle mobility and function, reduced long-term risk of arthritis, chronic pain or deformity, earlier mobilization of compared to no-operative treatment in unstable fractures. Alternatives include, Non-surgical management; casting or splinting with strict nonweightbearing. The patient had ample opportunity to ask questions. All questions were answered to the patient's satisfaction. The patient verbalized understanding and agreed to move forward with a left ankle open reduction internal fixation performed by Dr. Serrano. The patient demonstrates understanding of the risks, benefits and alternatives and wishes to proceed. Patient was placed back into a custom-molded short-leg splint. He will remain nonweightbearing and plan for surgical intervention on 04/17/2025. Coding Level of Care Code Est Pt Level 3 (87509) Diagnoses Closed fracture of left distal fibula S82.832A CPT Codes Splint - CPT: 52976-Mkjvq Leg splint application ([id number])
== END 2025-04-14 12:10 | disposition home or self-care (01) ==
LOC: HO.HOS 11:28
PROVIDERS: Visit Provider Physician Assistant
DX: S82.832A Other fracture of upper and lower end of left fibula, initial encounter for closed fracture (principal)
CPT/HCPCS: 99024

== ENCOUNTER → 2025-04-14 11:27 | Outpatient (BNVA) | payer OTHER, SELFPAY | PROVIDERS: Visit Provider Physician Assistant | DX: Z01.818 Encounter for other preprocedural examination (principal); S82.832D Other fracture of upper and lower end of left fibula, subsequent encounter for closed fracture with routine healing | CPT/HCPCS: 99212 ==

== ENCOUNTER 2025-04-17 12:39 | Day surgery (SDC) | payer OTHER, SELFPAY ==
--- NOTE | 2025-04-14 09:02 | HO.ANESPROP2 ---
Documented by User: Annie Garcia NP 04/14/25 09:17 HPI - Anesthesia Eval Consult details Narrative: 49yo M for Left Ankle Fracture ORIF s/p Right Arthroscopic Rotator Cuff Repair 2022 with GA-ETT 8. Received Benadryl 50mg preop. Had propofol for block and tolerated well per record review. T/C to patient 04/14/25. Reports no allergic reaction with rotator cuff. Also reports wrist surgery later 2022 in [place] with fentanyl and no allergic reaction with premed benadryl *Allergies to opiates, fentanyl, and propofol* T/C with patient. Had rash and itching with finger amp revision in 2004. Received fentanyl and propofol only. States gets rash and itching with opiates. Was on oxycodone for years and needed to take benadryl with it. Likely fentanyl caused reaction. Had knee surgery in 2018 without reaction. Anesthesia record requested from [facility]. Anesthesia record reviewed. (No propofol or fentanyl. Etomidate used.) Case discussed with attending anesthesia. Preop benadryl. PMFSH Active Problems Active Problems: All Active Problems Closed fracture of left distal fibula (Acute) Degenerative disc disease, lumbar (Acute) S/P rotator cuff repair (Acute) Right rotator cuff tear arthropathy (Acute) Injury of right rotator cuff (Acute) Past Medical History Medical History LFT elevation Renal calculi HTN (hypertension) Lumbar degenerative disc disease Family History Family history of problems with anesthesia: No Surgical History Surgical History Hx of eye surgery History of surgery on right wrist History of amputation of finger Hx of repair of rotator cuff Hx of right knee surgery History of Problems with Anesthesia: No Social History Social History Are you a primary reservoir caretaker to a significant other at home: No Do you presently have visiting nurse or other home services: No Alcohol intake: current Alcohol intake frequency: holidays/special occasions only Patient Tobacco Use Status: Never used Tobacco Use of substances other than those prescribed or required for medical reasons: No Have you been hit, kicked, punched, or otherwise hurt by someone within the past year? 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 Meds Allergies Allergy/AdvReac Type Severity Reaction Status Date / Time fentanyl Allergy Intermediate hives Verified 04/17/25 12:50 propofol Allergy Intermediate Itching, Verified 04/17/25 12:50 Rash acetaminophen AdvReac Intermediate Liver Verified 04/17/25 12:50 damage opiates AdvReac Intermediate Itching Uncoded 04/17/25 12:50 Home Medications ?Medication ?Instructions ?Recorded ?Confirmed ?Last Taken ?Type naproxen sodium 220 mg tablet 220 mg PO Q12H PRN Pain 09/30/22 04/15/25 04/15/25 02:00 History (Aleve) amlodipine 10 mg tablet 10 mg PO DAILY 04/08/25 04/15/25 04/17/25 History tadalafil 20 mg tablet 20 mg PO DAILY PRN intercourse 04/08/25 04/15/25 Unknown History Assessment and Plan Assessment Anesthesia Assessment: Chart Reviewed Final Anesthetic Review Family History of Problems with Anesthesia: No History of Problems with Anesthesia: No Documented by User: René Christensen MD 04/17/25 13:28 [facility] Past Medical History Medical History LFT elevation Renal calculi HTN (hypertension) Lumbar degenerative disc disease Surgical History Surgical History Hx of eye surgery History of surgery on right wrist History of amputation of finger Hx of repair of rotator cuff Hx of right knee surgery Social History Social History Are you a primary reservoir caretaker to a significant other at home: No Do you presently have visiting nurse or other home services: No Alcohol intake: current Alcohol intake frequency: holidays/special occasions only Patient Tobacco Use Status: Never used Tobacco Use of substances other than those prescribed or required for medical reasons: No Have you been hit, kicked, punched, or otherwise hurt by someone within the past year? 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 Meds Allergies Allergy/AdvReac Type Severity Reaction Status Date / Time fentanyl Allergy Intermediate hives Verified 04/17/25 12:50 propofol Allergy Intermediate Itching, Verified 04/17/25 12:50 Rash acetaminophen AdvReac Intermediate Liver Verified 04/17/25 12:50 damage opiates AdvReac Intermediate Itching Uncoded 04/17/25 12:50 Home Medications ?Medication ?Instructions ?Recorded ?Confirmed ?Last Taken ?Type naproxen sodium 220 mg tablet 220 mg PO Q12H PRN Pain 09/30/22 04/15/25 04/15/25 02:00 History (Aleve) amlodipine 10 mg tablet 10 mg PO DAILY 04/08/25 04/15/25 04/17/25 History tadalafil 20 mg tablet 20 mg PO DAILY PRN intercourse 04/08/25 04/15/25 Unknown History Exam Exam Date and Time: 04/17/25 Airway Mallampati Class: II TM Dist: >3cm Neck ROM: Full Heart: rrr Lungs: ctab vesicular Assessment and Plan Assessment Anesthesia Assessment: Anesthesia Plan Discussed Final Anesthetic Review NPO: Yes ASA Class: II Final Preanesthetic Review: No Changes in Pt Med Stat, Meds/Allgs Chart Reviewed, Consent Obtained/Reviewed and Anes Risks/Benef Reviewed Patient Risk: Low Procedure Risk: Low Anesthetic Plan Anesthetic Plan: GA and Regional Block Disposition: Standard PACU
[2025-04-15 12:27] VITALS: BMI 34.0
[2025-04-17] VITALS (11 sets, daily range): BP systolic 99–143; BP diastolic 56–80; PULSE 70–102; RESP 16–22; TEMP 36.6–37; O2SAT 91–96
--- NOTE | ~2025-04-17 | FL_ITS ---
EXAMINATION: XR FLUOROSCOPY WITH IMAGES CLINICAL INFORMATION: ORIF left ankle COMPARISON: X-ray 04/17/2025 TECHNIQUE: Fluoroscopy time: 17 seconds DAP: 0.5 mGycm2 Images: 2 FINDINGS: Fluoroscopy provided for ORIF of a distal fibular fracture. Anatomic alignment of the fracture. FL/FL guidance in OR IMPRESSION: Fluoroscopy provided for procedure. See operative report for details. Electronically signed by: Michael Harrison MD 04/18/2025 03:00 PM MARTÍN
[2025-04-17] MEDS: Lactated Ringers 1,000 ML 100 ML IVCONT (13:23)
--- NOTE | 2025-04-17 14:17 | MHC.SHP ---
Pre-Procedural Eval Section A - 24 Hr Update-Section A only Date of Service: 04/17/25 The patient is an INPATIENT: No Changes since office visit: No Cold of Flu in the past 2 weeks, No New Medical Problems, No Changes in Medication and No Patient answered all questions The patient has been examined within 24 hours of the surgical procedure. The History & Physical has been completed within 30 days and I have reviewed it.: Yes Section B - Complete if H&P > 30 days Chief Complaint: Other fracture of left lower leg, initial encounte Allergies: Allergies Allergy/AdvReac Type Severity Reaction Status Date / Time fentanyl Allergy Intermediate hives Verified 04/17/25 12:50 propofol Allergy Intermediate Itching, Verified 04/17/25 12:50 Rash acetaminophen AdvReac Intermediate Liver Verified 04/17/25 12:50 damage opiates AdvReac Intermediate Itching Uncoded 04/17/25 12:50 Plan I have reviewed the history and physical and performed a pertinent physical examination on my patient. No changes have occurred unless specified. Time Spent With Patient Time: Total time managing care of this patient today ____ minutes.
--- NOTE | 2025-04-17 14:27 | PC.NURSE ---
dr. davenport and dr. deleon assessed areas on patient's back, neck, upper arms, face. patient educated to assess home for cause. infectious disease and environmental services contacted to follow proper protocols. per doctors- okay to proceed to OR, no interventions at this time.
--- NOTE | 2025-04-17 16:15 | PM.OP ---
Brief Operative Note Date of Service: 04/17/25 Pre-op diagnosis: Left lateral malleolus fracture Post-op diagnosis: same Procedure: ORIF left lateral malleolus fracture Implants: [place] Pangea lateral plate Surgeon: Joey Serrano MD Anesthesia: GETA and regional Was an Keying Machine Operator used for this Procedure?: No Estimated blood loss (mL): 25 Tourniquet time (min): 45 IV fluids (mL): 800 Pathology: none sent Condition: stable Disposition: PACU
--- NOTE | 2025-04-18 15:19 | W.PM.OPN ---
Operative Note Operative Note Date of Service: 04/17/25 Narrative: Date of Service: 04/17/25 Pre-op diagnosis: Left lateral malleolus fracture Post-op diagnosis: same Procedure: ORIF left lateral malleolus fracture Implants: [place] Pangea lateral plate Surgeon: Joey Serrano MD Anesthesia: GETA and regional Was an Option Trader used for this Procedure?: No Estimated blood loss (mL): 25 Tourniquet time (min): 45 IV fluids (mL): 800 Pathology: none sent Condition: stable Disposition: PACU Procedure in detail: Patient was brought to the operating room and placed supine on the operative table. All bony prominences were well padded and a time-out was called to identify proper site proper procedure proper surgeon. IV antibiotics per weight were administered. I began by exsanguinating limb is slightly tourniquet to 300 mm Hg. I then made a standard posterolateral incision over the fibula. Full-thickness flaps were taken down to the fibular shaft and distal fibula. The fracture was identified and cleaned with a combination of curette, rongeur and irrigation. A lobster claw was used to provisionally reduce the fracture and a 6 hole distal fibular locking plate (pangea) was applied using standard AO technique. Biplanar fluoroscopy was used to confirm hardware position and fracture reduction. Once I was satisfied that both of these were acceptable I irrigated copiously and turned my attention to the syndesmosis. The syndesmosis was tested using external rotation test and was found to be stable. Therefore all instrumentation was removed and copious irrigation was performed. Absorbable suture and von were used for closure and the patient was placed into sterile dressings and a well-padded posterior splint. Tourniquet was let down and the patient was extubated brought to recovery room in stable condition there were no known complications.
== END 2025-04-17 18:40 | disposition home or self-care (01) ==
PROVIDERS: Visit Provider Orthopaedic Surgery
PROC: (CPT 27792; principal; 2025-04-17 14:00)
DX: S82.65XA Nondisplaced fracture of lateral malleolus of left fibula, initial encounter for closed fracture (principal); M25.572 Pain in left ankle and joints of left foot; W01.0XXA Fall on same level from slipping, tripping and stumbling without subsequent striking against object, initial encounter; Y93.01 Activity, walking, marching and hiking; Y92.59 Other trade areas as the place of occurrence of the external cause; Y99.9 Unspecified external cause status; I10 Essential (primary) hypertension; M51.369 Other intervertebral disc degeneration, lumbar region without mention of lumbar back pain or lower extremity pain; Z89.029 Acquired absence of unspecified finger(s); Z87.442 Personal history of urinary calculi; Z88.5 Allergy status to narcotic agent; Z88.8 Allergy status to other drugs, medicaments and biological substances; Z98.890 Other specified postprocedural states
CPT/HCPCS: 27792; C1713; J0330; J0690; J1100; J1885; J2250; J2371; J2405; J2795

== ENCOUNTER → 2025-04-17 12:39 | Outpatient (BNV) | payer OTHER, SELFPAY | PROVIDERS: Visit Provider Orthopaedic Surgery | DX: S82.62XA Displaced fracture of lateral malleolus of left fibula, initial encounter for closed fracture (principal); S82.892A Other fracture of left lower leg, initial encounter for closed fracture | CPT/HCPCS: 27792 ==

== ENCOUNTER 2025-04-19 22:13 | Inpatient (IN) | payer OTHER, SELFPAY ==
--- NOTE | ~2025-04-19 | US_ITS ---
EXAMINATION: US ABDOMEN LIMITED HISTORY: Hepatic steatosis TECHNIQUE: Real-time grayscale ultrasound imaging of the right upper quadrant was performed and images were reviewed. COMPARISON: There are no prior studies available for comparison. FINDINGS: Liver: The right lobe of the liver measures 18.4 cm in size. The left lobe of the liver measures 11.7 cm in size. The liver demonstrates increased echotexture, consistent with steatosis. There is probable focal fatty sparing adjacent to the gallbladder. No focal mass or intrahepatic biliary ductal dilatation is identified. There is normal hepatopedal flow in the portal vein. Gallbladder and biliary tree: The gallbladder is unremarkable, without evidence of calculi, wall thickening, or pericholecystic fluid. There is no sonographic Flor sign. The common bile duct is normal in caliber measuring 3 mm. Right Kidney: The right kidney measures 12.3 cm in length. The right kidney is unremarkable, without evidence of masses, hydronephrosis, or calculi. Pancreas: There is limited visualization of the pancreas. Abdominal aorta and inferior vena cava: The visualized portions of the abdominal aorta and inferior vena cava are normal in caliber. There is no free fluid in the right upper quadrant. US/US abdomen limited IMPRESSION: Hepatic steatosis. Electronically signed by: Negro Kent MD 04/22/2025 09:56 AM EST
--- NOTE | ~2025-04-19 | XR_ITS ---
CLINICAL HISTORY: chest pain 1 view chest x-ray Comparison: None provided Findings: Prominent right basilar hazy opacities. Normal size heart. No acute fracture. IMPRESSION: 1. Right basilar hazy airspace opacities, may represent pneumonia or edema. This document has been electronically signed by: Natty Mazariegos MD on 04/19/2025 23:33:36
--- NOTE | ~2025-04-19 | CT_ITS ---
CLINICAL HISTORY: high risk wells criteria CT angiography chest with contrast. 3D Postprocessing. Comparison: None provided Findings: NECK BASE: Limited views of the thyroid are unremarkable. LUNGS/PLEURA: Small left pleural effusion. Multifocal airspace consolidations. PULM VASCULAR: No central pulmonary embolism. MEDIASTINUM: No masses or lymphadenopathy. CARDIAC: No pericardial effusion. No cardiomegaly. AORTA: No aneurysm. CHEST WALL: No masses or axillary lymphadenopathy. LIMITED ABDOMEN: Limited views are unremarkable. BONES: No acute fracture. IMPRESSION: 1. No pulmonary embolus. 2. Multifocal pneumonia. This document has been electronically signed by: Natty Mazariegos MD on 04/20/2025 02:01:43
[2025-04-19 22:19] VITALS: BP 166/92; PULSE 110; O2SAT 96
[2025-04-19 22:22] VITALS: BP 144/75; PULSE 93; RESP 20; TEMP 36.7; O2SAT 95; BMI 40.0
--- NOTE | 2025-04-19 22:32 | ECG_ITS ---
Test Reason : DYSPNEA Blood Pressure : */* mmHG Vent. Rate : 94 BPM Atrial Rate : 94 BPM P-R Int : 142 ms QRS Dur : 90 ms QT Int : 330 ms P-R-T Axes : 15 38 34 degrees QTcB Int : 412 ms Sinus rhythm with occasional Premature ventricular complexes Cannot rule out Anterior infarct , age undetermined Premature ventricular complexes Abnormal ECG No previous ECGs available Referred By: Generic ED Physician Electronically Signed By: WON PAREKH
--- OUTSIDE RECORDS SUMMARY | 2025-04-19 22:42 | XMS_ITS | Clinical Summary ---
Author Organization [facility] Address [address] [place] [phone] Phone Care Team Providers Care Cake Icer And Packer Name Role Phone Shira Paz MD Primary [...] 2:10 PM EDT [facility] [address] [place] [address] Ute Bain MD Ectasia of cornea, right [...] Care Team (Late st Contact Info) Description 06/09/2025 11:00 AM EST Office Visit [facility] [address] [place] [address] Doroteo Connor MD [address] [facility] [place], [address] [place] [address] [email or web address] 08/18/2025 3:00 PM EDT Office Visit [facility] [address] [place] [address] Megan Spear [email or web address] 08/18/2025 3:30 PM EDT Office Visit [facility] [address] [place], [place] [id number] Ute Bain MD [address] [facility] [place], [address] [place] [address] [email or web address] Health Maintenance Due Date Last Done Comments [...] EDT S/p corneal collagen crosslinking overall stable Ute Holbrook MD OPHTHALMOLOGY IMAGIN G Final Result * (ABNORMAL) Lipid panel (10/11/2023 11:05 AM EDT) HDL 69 mg/dL [facility] Comment: Interpretation <40 mg/dL: Low HDL cholesterol (major risk factor for CHD) Greater than or equal to 60 mg/dL: High HDL cholesterol ( negative risk factor for CHD) HDL - cholesterol is affected by a number of factors, e.g. smoking, excerise, hormones, sex and age. CHOLESTEROL 202 0 - 240 mg/dL [facility] TRIGLYCERIDES 113 30 - 160 mg/dL [facility] LDL 110 50 - 129 mg/dL [facility] Comment: LDL levels in terms of risk for coronary heart disease: <100 mg/dL: Optimal 100-129 mg/dL: Near or above optimal 130-159 mg/dL: Borderline high 160-189 mg/dL: High >190 mg/dL: Very High CARDIAC RISK RATIO 2.9(L) 3.4 - 5.0 [facility] Blood 10/11/2023 11:0 5 AM EDT 10/11/2023 11:09 AM EDT Nae Jimenes METAL BONDING PRESS OPERATOR LAB BLOOD BKR ORDERABL ES Final Result [facility] [address] [place] [address] from Last 3 Months or Most Recently Relevant to Health Maintenance Insurance [employer] PLANS DIRECT [employer] PLANS DIRECT [employer] PLANS DIRECT PLANS [place] [address] [address] [address] PLANS DIRECT [facility] PLANS DIRECT Care Teams Cake Icer And Packer Relationship Specialty Start Date End Date Shira Paz MD [address] [place] [address] [email or web address] PCP - General Family Medicine 06/12/24 Additional Source Comments The information contained in this document represents components of the legal health record. It is not the complete legal health record.[facility]
--- OUTSIDE RECORDS SUMMARY | 2025-04-19 22:42 | XMS_ITS | Encounter Summary ---
Author Organization [employer] Address [address] [facility] 7t [place] [address] Care Team Providers Care Indexer Name Role Phone Nae Jimenes [facility] Primary Care Provider [phone] Encounter Details Date Type Department Care Team ([facility] st Contact Info) Description 04/11/2025 Orders Only [facility] [address] [place] [address] [facility] [address] [place] [address] Social History Tobacco Use Types Packs/Day Years [...] the past 12 months, has t he [employer], [employer], oil or water [employer] threatened to shut off services in your home? No 10/11/2023 Depression Answer Date Recorded Patient Health Questionnaire-2 Score 0 10/11/2023 Sex and Gender Information Value Date Recorded Sex Assigned at Male 07/20/2022 2:39 PM EST Legal Sex Male 2:37 PM EST Gender Identity Male 07/20/2022 2:39 PM EST Sexual Orientation Straight 07/20/2022 2: 39 PM EST Travel History Travel Start Travel End [place] 05/29/2024 04/04/2025 documented as of this encounter Plan of Treatment Not on file documented as of this encounter Procedures Procedure Name Priority Date/Time Associated Diagnosis Comments XR KNEE 4 OR MORE VIEWS LEFT Routine 04/06/2025 XR KNEE 1-2 VIEWS BILATERAL Routine 04/06/2025 XR ANKLE 3+ VIEWS LEFT Routine 04/06/2025 documented in this encounter Results * XR KNEE 4 OR MORE VIEWS LEFT (04/06/2025) Anatomical Region Laterality Modality Radiographic Elizabeth ging [facility] PATIENT ACCOUNTING REPRESENTATIVE IMG XR PROCEDURES Final R esult * XR Knee 1-2 Views Bilateral (04/06/2025) Anatomical Region Laterality Modality Lower Extremities, Knee Bilateral Radiogra phic Imaging [facility] IMG XR PROCEDURES Final R esult * XR Ankle 3+ Views Left (04/06/2025) Anatomical Region Laterality Modality Lower Extremities, Ankle Left Radiogr aphic Imaging [facility] PATIENT ACCOUNTING REPRESENTATIVE IMG XR PROCEDURES Final R esult documented in this encounter Visit Diagnoses Not on filedocumented in this encounter Care Teams Indexer Relationship Specialty Start Date End Date [facility] [address] [facility] [address] PCP - General Family Medicine 08/12/22 documented as of this encounter
--- OUTSIDE RECORDS SUMMARY | 2025-04-19 22:42 | XMS_ITS | Encounter Summary ---
Author Organization [employer] Address [address] [facility] 7t [place] [address] Care Team Providers Care House Fellow Name Role Phone [facility] Primary Care Provider [phone] Reason for Visit * Reason Comments Med Refill Encounter Details Date Type Department Care Team ([facility] Contact Info) Description 02/25/2025 Refill Giovana [facility] [address] [place] [address] [facility] [address] [place] [address] Erectile dysfunction, unspecified erectile dysfunction type Social [...] EST Travel History Travel Start Travel End [place] 05/29/2024 04/04/2025 documented as of this encounter Plan of Treatment Not on file documented as of this encounter Visit Diagnoses Diagnosis Erectile dysfunction, unspecified erectile dysfunction type documented in this encounter Care Teams House Fellow Relationship Specialty Start Date End Date Nae Jimenes FNP [address] [place] [address] PCP - General Family Medicine 08/12/22 documented as of this encounter
--- OUTSIDE RECORDS SUMMARY | 2025-04-19 22:42 | XMS_ITS | Encounter Summary ---
Author Organization [employer] Address [address] [facility] 7t [place] [address] Care Team Providers Care Sports Instructor Name Role Phone Nae Jimenes [facility] Primary Care Provider [phone] [phone] Reason for Visit * Reason Onset Date Comments OV notes 04/14/2025 Encounter Details Date Type Department Care Team ([facility] Contact Info) Description 04/14/2025 Telephone [place] [facility] [address] [place] [address] [facility] Nae, [facility] [address] [place] [address] OV notes Social History Tobacco Use Types Packs/Day Years Used Date Smoking Tobacco: Never Smokeless Tobacco: Never Alcohol Use Standard Drinks/Week Comments Yes 14 (1 standard drink = 0.6 oz pu re alcohol) Housing Stability Answer Date Recorded What is your housing situation today? I have carmen chelsey 10/11/[address] you li [...] EST Travel History Travel Start Travel End [place] 05/29/2024 04/04/2025 documented as of this encounter Miscellaneous Notes * Telephone Encounter - Amada Enrique [place] - 04/14/2025 11:03 AM EST Notes were faxed. * Telephone Encounter - Marycarmen Silva - 04/14/2025 9:09 AM EST Annei called requesting the most recent OV notes/ updated health history for Irvin. Irvin is coming in on Monday to their office to get orthopedic fracture repair surgery. Please fax to: [phone] Any questions call: [phone] documented in this encounter Plan of Treatment Not on file documented as of this encounter Visit Diagnoses Not on filedocumented in this encounter Care Teams Sports Instructor Relationship Specialty Start Date End Date Nae Jimenes FNP [address] [facility] [address] PCP - General Family Medicine 08/12/22 documented as of this encounter
--- OUTSIDE RECORDS SUMMARY | 2025-04-19 22:42 | XMS_ITS | Clinical Summary ---
Author Organization [employer] Address [address] [place] [address] 7t [place] [address] Care Team Providers Care Medical Care Manager Name Role Phone Nae Jimenes JEANIE Primary Care Provider [phone] [phone] Allergies Active Allergy Reactions Criticality Noted Date Comments Fentanyl Rash Low 09/07/2022 Propofol Rash Low 09/07/2022 Medications albuterol (ProAir HFA) 108 (90 Base) MCG/ACT inhalerIndicati ons:Community acquired pneumonia, unspecified laterality Inhale 2 puffs every 4 (four) hours if needed for wheezing or shortness of breath. 8.5 g 06/15/19 24 Active amLODIPine (Norvasc) 10 MG tabletIndicatio ns:Primary hypertension Take 1 tablet (10 mg) by mouth Once per day. 90 tablet 3 04/11/20 25 2025 Active tadalafil (Cialis) 5 MG tabletIndicatio ns:Erectile dysfunction, unspecified erectile dysfunction type Take 1 tablet (5 mg) by mouth Once per day. 90 tablet 3 04/11/20 25 2025 Active tadalafil (Cialis) 20 MG tabletIndicatio ns:Erectile dysfunction, unspecified erectile dysfunction type TAKE 1 TABLET (20 MG) BY MOUTH DAILY IF NEEDED FOR ERECTILE DYSFUNCTION 30 tablet 3 10/24/19 25 2024 Discontinued amLODIPine (Norvasc) 10 MG tabletIndicatio ns:Primary hypertension TAKE 1 TABLET (10 MG) BY MOUTH ONCE PER DAY. 90 tablet 02/28/20 25 2024 Discontinued(R eorder (will not trigger notification to Pharmacy)) Active Problems Problem Noted Date Diagnosed Date Primary hypertension 10/11/2023 Erectile dysfunction 10/11/2023 COVID-19 vaccine series declined 09/07/2022 Encounters Date Type Department Care Team Description 04/14/2025 Telephone [facility] MED[facility] [address] [place] [address] [facility] OV notes 04/11/2025 11:00 AM EST Office Visit [facility] [address] [place] [address] [facility] Closed extra-articular fracture of distal end of left tibia, sequela (Primary Dx); Closed fracture of distal end of left fibula, unspecified fracture morphology, sequela; Closed nondisplaced fracture of first metatarsal bone of left foot, sequela; Primary hypertension; Erectile dysfunction, unspecified erectile dysfunction type; Acute cough; Alcohol use disorder 04/11/2025 Telephone [facility] [address] [place] [address] [place], [place] [facility] 04/11/2025 Orders Only [facility] Information Management [address] [place] [address] [facility] 04/11/2025 Telephone [facility] MEDICAL [address] [place] [address] [facility] Prior Authorization (cialis) 04/08/2025 Travel 02/27/2025 Refill [facility] [address] [place] [address] [facility] Primary hypertension 02/25/2025 Refill [facility] [address] [place] [address] [facility] Erectile dysfunction, unspecified erectile dysfunction type from Last 3 Months Immunizations Immunization Administration Dates Next Due Tdap 05/29/2018,01/15/2017 Family History Medical History Relation Name Comments [...] Travel Start Travel End [place] 05/29/2024 04/04/2025 Last Filed Vital Signs Vital Sign Reading Time Taken Comments Blood Pressure 132/80 04/11/2025 11:23 AM EST Pulse 88 04/11/2025 11:23 AM EST Temperature 36.9 C (98.4 F) 04/11/2025 11:23 AM EST Respiratory Rate 16 10/11/2023 10:04 AM EDT Oxygen Saturation 96% 12/01/2023 3:46 PM EDT Inhaled Oxygen Concentration - - Weight 107 kg (236 lb) 04/11/2025 11:23 AM EST Height 188 cm (6' 2 ) 04/11/2025 11:23 AM EST Body Mass Index 30.3 04/11/2025 11:23 AM EST Plan of Treatment Health Maintenance Due Date Last Done Comments CT Colonography 1973 Colonoscopy 1973 FIT 1973 Sigmoidoscopy 1973 Alcohol/Substance Use Screening 1985 Family Planning (PISQ) 1988 Hepatitis B Vaccines (1 of 3 - 19+ 3-dose series) 1992 Pneumococcal Vaccine: 50+ Years (1 of 1 - PCV) 09/04/2023 Zoster Vaccines (1 of 2) 09/04/2023 FOBT 09/06/2024 09/07/2023 Depression Screening 10/10/2024 10/11/2023, 10/11/2023 SDOH Screening 10/10/2024 10/11/2023 COVID-19 Vaccine (1 - 2024-2 6 season) 2025 Influenza Vaccine (#1) 2025 Disability Screening 04/08/2026 04/08/2025 Tobacco Screening 04/11/2026 04/11/2025 Colorectal Cancer Screening 09/06/2026 FIT DNA/Cologuard 09/06/2026 09/07/2023 DTaP/Tdap/Td Vaccines (3 - T d or Tdap) 05/29/2028 05/29/2018, 01/15/2017 Lipid Panel 10/10/2028 10/11/2023 RSV Patients and [...] XR ANKLE 3+ VIEWS LEFT Routine 04/06/2025 LIPID PANEL, STANDARD Routine 10/11/2023 Screening for lipid disorders LAB COLOGUARD COLON CANCER SCREEN Routine 09/07/2023 Colon cancer screening from Last 3 Months or Most Recently Relevant to Health Maintenance Results * XR KNEE 4 OR MORE VIEWS LEFT (04/06/2025) Anatomical Region Laterality Modality Radiographic Elizabeth ging [facility] IMG XR PROCEDURES Final R esult * XR Knee 1-2 Views Bilateral (04/06/2025) Anatomical Region Laterality Modality Lower Extremities, Knee Bilateral Radiogra phic Imaging [facility] IMG XR PROCEDURES Final R esult * XR Ankle 3+ Views Left (04/06/2025) Anatomical Region Laterality Modality Lower Extremities, Ankle Left Radiogr aphic Imaging [facility] IMG XR PROCEDURES Final R esult * Lipid Panel, Standard (10/11/2023) Blood Venous blood specimen / Unknown [facility] LAB BLOOD ORDERABLES Catarina l Result EXTERNAL LAB * Cologuard?? colon cancer screening (09/07/2023) Stool [facility] LAB MOLECULAR DIAGNOSTICS ORDERABLES Final Result EXTERNAL LAB from Last 3 Months or Most Recently Relevant to Health Maintenance Insurance [facility] Care Teams Medical Care Manager Relationship Specialty Start Date End Date Nae Jimenes FNP [address] [facility] [place] [address] PCP - General Family Medicine 08/12/22
--- OUTSIDE RECORDS SUMMARY | 2025-04-19 22:42 | XMS_ITS | Encounter Summary ---
Author Organization [employer] Address [address] [facility] 7t [place] [address] Care Team Providers Care Tape Machine Tailer Name Role Phone [facility] Primary Care Provider [phone] [phone] Reason for Visit * Reason Onset Date Comments Prior Authorization 04/11/2025 szuette Encounter Details Date Type Department Care Team ([facility] Contact Info) Description 04/11/2025 Telephone [facility] MEDICAL [address] [place] [address] [facility] [address] [place] [address] Prior Authorization (suzette) Social History Tobacco Use Types Packs/Day Years [...] encounter Miscellaneous Notes * Telephone Encounter - JEANIE Allen - 04/14/2025 2:53 PM EST Noted. Rx is at the pharmacy. He should be able to discuss this with pharmacist. * Telephone Encounter - Yolanda Stokes LPN - 04/12/2025 9:23 AM EST Call placed to patient. Unable to LM. continually states, we didn't get your message, please repeat your message. * Telephone Encounter - Ritika Merritt - 04/11/2025 4:30 PM EST Patient called back for nursing. Nursing unavailable. Patient states his insurance pays for 4 pills and he pays the rest out of pocket (usually 30 pills for $17). Patient states he would like a call back. tadalafil (Cialis) 5 MG tablet Sig: Take 1 tablet (5 mg) by mouth Once per day. * Telephone Encounter - Nancy Stiles LPN - 04/11/2025 1:41 PM EST Call placed to patient. LMOM to return call. * Telephone Encounter - JEANIE Allen - 04/11/2025 1:08 PM EST He has been getting cialis prn for quite some time. Perhaps is paying out of pocket? Recommend he call the pharmacy and go over cost/options. * Telephone Encounter - Michelle Pizarro LPN - 04/11/2025 11:56 AM EST Insurance doesn't cover cialis unless its for BPH FYI documented in this encounter Plan of Treatment Not on file documented as of this encounter Visit Diagnoses Not on filedocumented in this encounter Care Teams Tape Machine Tailer Relationship Specialty Start Date End Date Nae Jimenes FNP [address] [facility] [address] PCP - General Family Medicine 08/12/22 documented as of this encounter
--- NOTE | 2025-04-19 22:58 | ED_ITS ---
HPI - General Adult General Chief complaint: General Medical Stated complaint: fluid retention, L ankle surgery 2 days ago Time Seen by Provider: 04/19/25 22:58 Source: patient, family, RN notes reviewed and old records reviewed Mode of arrival: ambulatory Limitations: no limitations History of Present Illness ED Provider: Dr. Gail Le HPI narrative: 49-year-old male with recent left lateral malleolus fracture treated surgically on (original injury Apr 04). Since Monday night he has noted rapidly progressive, generalized swelling and a 47 lb weight gain (baseline 264 lbs, now 311 lbs per bed scale). Swelling involves legs, abdomen, hands, and back; skin feels extremely tight. Patient reports that since the swelling started, he had to buy new clothes because his own became too tight. Reports difficulty with self-care: I can't even reach around to wipe myself right now because I just can't even get to my butt . Reports new severe bloating/fullness, decreased ability to eat, and markedly decreased exercise tolerance (SOB when moving from bathroom to couch with crutches). Additional symptoms include intermittent dry cough (rare scant phlegm), hand numbness, and decreased urinary output despite strong urge to void. Last bowel movement today?normal, no blood. Denies fever, nausea, or vomiting. Patient reports that he usually drinks sodas but recently switched to water, thinking sodas might be contributing to swelling. Medication history notable for high-dose ibuprofen 800 mg q8h started after orthopedics visit Monday; patient had been taking OTC ibuprofen more frequently prior to this. Surgical staff advised stopping ibuprofen Monday pre-op, but he restarted post-op per discharge instructions. He self-discontinued ibuprofen this morning (last dose 08:30) fearing it worsened fluid retention. Took acetaminophen today for pain. Takes amlodipine for hypertension, an ED tablet (unspecified), oxycodone 5 mg (last 05:30) with diphenhydramine 25 mg for medication-related pruritus. Related Data Home Medications ?Medication ?Instructions ?Recorded ?Confirmed amlodipine 10 mg tablet 10 mg PO DAILY 04/08/2503/30 tadalafil 20 mg tablet 20 mg PO DAILY PRN intercour se 04/08/25 04/20/25 acetaminophen 325 mg tablet 650 mg PO Q6H PRN Pain 04/20/25 diphenhydramine HCl 25 mg tablet 25 mg PO BEDTIME PRN Insomnia 04/20/25 04/20/25 Previous Rx's ?Medication ?Instructions ?Recorded ibuprofen 800 mg tablet 800 mg PO Q8H PRN pain 30 da ys #90 04/08/25 tabs oxycodone 5 mg tablet 5 mg PO Q4-6H PRN post opera tive 04/17/25 pain #20 tabs Allergies Allergy/AdvReac Type Severity Reaction Status Date / Time fentanyl Allergy Intermediate hives Verified 04/19/25 22:25 propofol Allergy Intermediate Itching, Verified 04/19/25 22:25 Rash acetaminophen AdvReac Intermediate Liver Verified 04/19/25 22:25 damage opiates AdvReac Intermediate Itching Uncoded 04/17/25 12:50 Review of Systems 2 Review of Systems: as per HPI, full review of systems performed and negative but for the above mentioned pertinent positives and negatives. PMFSH Past Medical History Medical History LFT elevation Renal calculi HTN (hypertension) Lumbar degenerative disc disease Surgical History Hx of eye surgery History of surgery on right wrist History of amputation of finger Hx of repair of rotator cuff Hx of right knee surgery Social History Social History Household Members: Significant Other Housing: Apartment Are you a primary director of medicare to a significant other at home: No Do you presently have visiting nurse or other home services: No Alcohol intake: former Patient Tobacco Use Status: Never used Tobacco Smoked in Last 30 Days: No e-Cigarette/Vaping Use: Never Used Use of substances other than those prescribed or required for medical reasons: No Have you been hit, kicked, punched, or otherwise hurt by someone within the past year? 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 SKIN: Normal skin color for ethnicity, warm, dry, multiple skin excoriations of various degrees of healing scattered throughout face, chest, arms and legs, no crepitus, no petechiae, no blistering. HEENT: Normocephalic, atraumatic, no stridor, posterior oropharynx nonerythematous, dry mucous membranes, EOMI. NECK: Soft, supple, full ROM, midline structures nontender, no step-offs, no deformities, no lymphadenopathy. CHEST: Heart regular tachycardia, no murmurs, symmetric chest rise and fall, no crepitus. PULMONARY: Clear to auscultation bilaterally, no labored breathing, no wheezes/rhales/rhonchi. ABDOMINAL: Softly distended, no fluid wave, diffusely tender to palpation without rebound or guarding, positive bowel sounds in all quadrants. : Deferred. MUSCULOSKELETAL: Normal tone, full range of motion, no deformities, 3+ peripheral edema. NEURO: Alert and oriented to person, CN II through XII intact, equal strength and sensation bilateral upper and lower extremities, no focal neurologic deficits. PSYCHIATRIC: Anxious affect, agitated Vital Signs: Vital Signs - 24 hr 04/19/25 22:22 04/20/25 00:50 04/20/25 00:59 Temperature 98.0 F 98.4 F Pulse Rate 93 85 Respiratory Rate 20 20 Blood Pressure 144/75 H 135/83 Pulse Oximetry 95 97 Oxygen Delivery Method Room Air Room Air 04/20/25 03:00 Temperature 98.3 F Pulse Rate 87 Respiratory Rate 19 Blood Pressure 136/80 Pulse Oximetry 94 Oxygen Delivery Method Room Air BMI result Body Mass Index 40.0 Medications Administered Generic Name Dose Route Start Last Admin Trade Name Freq PRN Reason Stop Dose Admin Enoxaparin Sodium 40 mg 04/20/25 04:00 04/20/25 05:31 Enoxaparin Sodium 40 Mg/0.4 Ml Syringe SUBCUT 40 mg DAILY COLTON Administration Hydromorphone HCl 0.5 mg 04/20/25 03:50 04/20/25 05:38 Hydromorphone Hcl 1 Mg/Ml Syringe IVPUSH 0.5 mg Q4H PRN Administration Pain, Severe (Pain Scale 7-10) Protocol Oxycodone HCl 5 mg 04/20/25 03:50 04/20/25 07:47 Oxycodone Hcl Immed Release 5 Mg Tablet PO 5 mg Q6H PRN Administration Pain, Moderate(Pain Scale 4-6) Discontinued Medications Generic Name Dose Route Start Last Admin Trade Name Freq PRN Reason Stop Dose Admin Diphenhydramine HCl 25 mg 04/20/25 00:38 04/20/25 00:49 Diphenhydramine Hcl 50 Mg/Ml Vial IVPUSH 04/20/25 00:39 25 mg ONCE ONE Administration Furosemide 40 mg 04/20/25 00:37 04/20/25 00:50 Furosemide 40 Mg/4 Ml Vial IVPUSH 04/20/25 00:38 40 mg ONCE ONE Administration Protocol Doxycycline Hyclate 100 mg/ 250 mls @ 166.67 mls/hr 04/20/25 01:34 04/20/25 03:40 Sodium Chloride IV 04/20/25 03:03 Infused ONCE ONE Infusion Ceftriaxone Sodium 1 gm/ 50 mls @ 100 mls/hr 04/20/25 01:34 04/20/25 03:00 Sodium Chloride IV 04/20/25 02:03 Infused ONCE ONE Infusion Iohexol 100 ml 04/20/25 01:22 04/20/25 01:22 Iohexol 350 Mg/Ml 100 Ml Infus..Btl IV 04/20/25 01:23 75 ml ONCE ONE Administration Morphine Sulfate 4 mg 04/20/25 00:38 04/20/25 00:53 Morphine Sulfate 4 Mg/Ml Cartridge IVPUSH 04/20/25 00:39 4 mg ONCE ONE Administration Protocol Medical Decision Making Medical Decision Making MDM Narrative: Assessment & Plan 49-year-old male with recent ankle surgery now presenting with acute generalized edema, weight gain, and dyspnea. Problem #1: Generalized edema / fluid overload (rule out heart failure, renal etiology, medication related) Assessment: Rapid weight gain, diffuse swelling, elevated BNP (~900), CXR with pulmonary vascular congestion. Kidney function currently normal; ibuprofen use may have contributed but unlikely sole cause per discussion. Plan: * Administer IV diuretic (?fluid pill?) to promote diuresis. * Monitor urine output before and after diuretic. * Trend BMP and BNP as clinically indicated. * Assess clinical response; disposition dependent on CT and overall status. Problem #2: Shortness of breath ? evaluate for pneumonia vs pulmonary embolism Assessment: SOB with minimal exertion, CXR shows right-sided infiltrate/fluid; prolonged immobilization increases PE risk. Plan: * CT chest with contrast ordered to assess for PE and better characterize lung consolidation. * Consider empiric antibiotics if CT supports infectious process. * If PE identified, initiate anticoagulation and admit. * Disposition (admit vs discharge) contingent on CT findings. Problem #3: Post-operative ankle pain (left lateral malleolus fracture) Assessment: Ongoing throbbing pain, swelling; last oxycodone 05:30 today. Plan: * Provide additional pain control (oxycodone) with concurrent diphenhydramine for pruritus per patient tolerance. * Continue ice 20 min on / 20 min off as patient has been doing. * Avoid NSAIDs (patient self-discontinued) until further clarification. Problem #4: Hypertension Assessment: Chronic; currently on amlodipine. Plan: * Continue home amlodipine. * Monitor BP while in ED/hospital. Follow-up: Pending CT chest results will guide need for admission, anticoagulation, and/or antibiotics. Discussed plan and contingencies with patient; questions answered. Laboratory data relevant for visit: ? BNP > 900 (elevated). ? Basic metabolic panel: kidney function within normal limits. ? Cardiac enzymes (troponin) low/normal. Imaging data relevant for visit: ? Chest X-ray: Mild pulmonary edema/fluid, greater on right; possible consolidation concerning for pneumonia. Radiology notes little bit of fluid in lungs, more so on right side. ? CT chest with contrast: ordered (pending) to evaluate for pneumonia, fluid overload, and to rule out pulmonary embolism. Differential Diagnosis Differential Diagnoses: The differential diagnosis associated with the presentation includes (As above) Admission/Observation Consideration of admission/observation: Escalation of care including admission/observation considered Consult Healthcare Provider Management of the patient was discussed with: Hospitalist Lab Data MDM Lab Attestation statement: I reviewed the patient's lab results. 04/20/25 05:40 04/20/25 05:40 Labs: Lab Results 04/19/25 04/20/25 04/20/25 Range/Units 22:54 01:33 02:06 WBC 10.1 (4.8-10.8) X10*3/uL RBC 3.80 L (4.60-5.80) X10*6/uL Hgb 11.3 L (14.0-18.0) g/dl Hct 34.7 L (42.0-52.0) % MCV 91.3 (80.0-98.0) fL MCH 29.7 (27.0-33.0) pg MCHC 32.6 (31.0-36.0) g/dl RDW 13.2 (11.0-16.0) % Plt Count 348 (160-400) X10*3/uL MPV 10.6 (9.4-12.4) fL Immature Gran % (Auto) 1.0 H (0.0-0.4) % Neut % (Auto) 65.5 (45-73) % Lymph % (Auto) 22.8 (20-40) % [place] % (Auto) 8.3 (2-11) % Eos % (Auto) 1.8 (0-4) % Baso % (Auto) 0.6 (0-2) % Lymph # (Auto) 2.3 (1.2-4.9) X10*3/uL [place] # (Auto) 0.8 (0.1-1.2) X10*3/uL Eos # (Auto) 0.2 (0.0-0.4) X10*3/uL Baso # (Auto) 0.1 (0.0-0.2) X10*3/uL Abs Immat Gran (auto) 0.10 H (0.00-0.03) X10*3/uL Absolute Neuts (auto) 6.6 (2.0-8.3) x10*3/uL Absolute Nucleated RBC 0.000 (0.0-0.012) X10*3/uL Nucleated RBC % (auto) 0.0 (0.0-0.2) /100WBC Sodium 142 (135-145) mmol/L Potassium 4.1 (3.3-5.1) mmol/L Chloride 105 (96-108) mmol/L Carbon Dioxide 29 (22-29) mmol/L Anion Gap 12 (12-20) BUN 21 H (9-16) mg/dL Creatinine 0.84 (0.5-1.4) mg/dL Estim Creat Clear Calc 155.6 Estimated GFR > 60 Random Glucose 96 (60-115) mg/dL Lactic Acid 1.0 (0.5-2.0) mmol/L Calcium 8.5 (8.4-10.2) mg/dL Total Bilirubin 0.2 (0.0-1.0) mg/dL AST 20 (5-37) U/L ALT 23 (0-40) U/L Alkaline Phosphatase 81 (39-117) U/L Troponin I High Sens 3.4 (<3.5-35.0) ng/L NT-Pro-B Natriuret Pep 911.3 H (<300) pg/mL Total Protein 6.4 L (6.5-8.0) g/dL Albumin 3.5 (3.5-5.0) g/dL Urine Color Yellow Urine Appearance Clear Urine pH 6.5 (5.0-9.0) Ur Specific [place] <= 1.005 (1.005-1.025) Urine Protein Negative (Neg-Trace) mg/dL Urine Glucose (UA) Negative (Negative) mg/dL Urine Ketones Negative (Negative) mg/dL Urine Blood Negative (Negative) Urine Nitrite Negative (Negative) Ur Leukocyte Esterase Negative (Negative) Influenza Type A (PCR) NEGATIVE (Negative) Influenza Type B (PCR) NEGATIVE (Negative) RSV RNA Qual (PCR) NEGATIVE (Negative) SARS-CoV-2 RNA (RT-PCR) NEGATIVE (Negative) Independent Interpretation I performed an independent interpretation of an: EKG Interpretation: My independent interpretation of the ECG reveals normal sinus rhythm with rate of 94, PVCs, normal axis, normal intervals, no ST elevations or depressions to suggest ischemic changes, no previous for comparison Radiology Impression Discussion of test interpretation with radiology: I have reviewed the radiologist's reading. Radiologist Impression: CT angiography chest with contrast. . Comparison: None provided Findings: NECK BASE: Limited views of the thyroid are unremarkable. LUNGS/PLEURA: Small left pleural effusion. Multifocal airspace consolidations. PULM VASCULAR: No central pulmonary embolism. MEDIASTINUM: No masses or lymphadenopathy. CARDIAC: No pericardial effusion. No cardiomegaly. AORTA: No aneurysm. CHEST WALL: No masses or axillary lymphadenopathy. LIMITED ABDOMEN: Limited views are unremarkable. BONES: No acute fracture. IMPRESSION: 1. No pulmonary embolus. 2. Multifocal pneumonia. Independent Historian Clinical information obtained from an independent historian. History obtained from or confirmed by: Spouse Prescription Management I considered prescription management with: Pain Medication and Antibiotic Chronic Conditions Patient?s care impacted by: Hypertension Discharge Plan Discharge Clinical Impression: Multifocal pneumonia, Anasarca Patient Disposition: Admitted As Inpatient Interventions: Admission Worksheet (ED) Last Done: 04/20/25 05:08 Discharge Date/Time: 04/20/25 05:53
[2025-04-19 23:00] LABS: Hematocrit 34.7 % (42.0-52.0); Hemoglobin 11.3 g/dl (14.0-18.0); Imm Gran Abs Auto 0.10 X10*3/uL (0.00-0.03); Imm Gran Pct Auto 1.0 % (0.0-0.4); Lymphocytes Absolute Auto 2.3 X10*3/uL (1.2-4.9); MANUAL DIFF FLAG NO; Mean Corpuscular HGB Conc 32.6 g/dl (31.0-36.0); Mean Corpuscular Hemoglobin 29.7 pg (27.0-33.0); Mean Corpuscular Volume 91.3 fL (80.0-98.0); NRBC Abs Auto 0.000 X10*3/uL (0.0-0.012); NRBC Pct Auto 0.0 /100WBC (0.0-0.2); Platelet Count 348 X10*3/uL (160-400); Red Blood Count 3.80 X10*6/uL (4.60-5.80); White Blood Count 10.1 X10*3/uL (4.8-10.8)
[2025-04-19 23:17] LABS: Alanine Aminotransferase 23 U/L (0-40); Albumin Level 3.5 g/dL (3.5-5.0); Alkaline Phosphatase 81 U/L (39-117); Anion Gap 12 (12-20); Aspartate Amino Transferase 20 U/L (5-37); Blood Urea Nitrogen 21 mg/dL (9-16); Calcium 8.5 mg/dL (8.4-10.2); Carbon Dioxide 29 mmol/L (22-29); Chloride 105 mmol/L (96-108); Creatinine Clr Calc Pharmacy 155.6; Estimated Glomerular Filt Rate > 60; Potassium 4.1 mmol/L (3.3-5.1); Sodium 142 mmol/L (135-145); Total Protein 6.4 g/dL (6.5-8.0)
[2025-04-19 23:24] LABS: NT Pro B Type Natriuretic Pept 911.3 pg/mL (<300)
[2025-04-19 23:36] LABS: Resp Syncy Virus RNA Qual PCR NEGATIVE (Negative); SARS COV2 PCR INHOUSE NEGATIVE (Negative)
[2025-04-20] VITALS (11 sets, daily range): BP systolic 134–150; BP diastolic 69–83; PULSE 75–87; RESP 16–20; TEMP 36.4–37.4; O2SAT 92–98; BMI 38.8
[2025-04-20] MEDS: Furosemide 40 MG/4 ML VIAL IVPUSH (00:50)
[2025-04-20] MEDS: iohexoL 350 MG/ML 100 ML INFUS..BTL IV (01:22)
[2025-04-20 01:39] LABS: Appearance Urine Clear; Glucose Urine UA Negative (Negative); PH 6.5 (5.0-9.0); Specific Gravity - Urine <= 1.005 (1.005-1.025)
[2025-04-20 01:46] LABS: Troponin-I High Sensitivity 3.4 ng/L (<3.5-35.0)
--- NOTE | 2025-04-20 03:55 | P.HPHOSP_ITS ---
History of Present Illness Date of Service: 04/20/25 Attending physician on admission: Alek Jay Chief Complaint: edema Patient is a 49-year-old male with a past medical history significant for hypertension and morbid obesity, recently s/p left lateral malleolus fracture treated surgically on April 17 (injury on April 04), who presented to the ED due to rapidly progressive generalized edema and 47 lb weight gain. Edema involves legs, hands, abdomen. The patient reports that he feels that his skin is going to burst. He also complains of severe abdominal bloating/fullness with decreased appetite and shortness of breath. He reports an intermittent dry cough, hand numbness and decreased urinary output though strong urge to urinate. Last bowel movement was today, no hematochezia. He denies fever, chills, nausea, vomiting. 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 reports erosions on skin are due to itching the opiates he is taking since surgery. Review of Systems 2 Constitutional: Constitutional: Denies body ache(s), Denies chills, Denies fatigue, Denies fever(s) and Denies headache(s) Eyes: Eyes: Denies change in vision ENT: Denies headache(s), Denies nasal discharge and Denies sore throat Cardiovascular: Cardiovascular: Denies chest pain, Denies syncope, Denies rapid heart rate, Reports leg edema and Reports dyspnea Respiratory: Respiratory: Denies chest congestion, Reports cough, Reports dyspnea and Denies wheezing Gastrointestinal: Gastrointestinal: Denies abdominal pain, Reports bloating, Denies diarrhea, Denies nausea and Denies vomiting Genitourinary: Genitourinary: Denies dysuria Musculoskeletal: Musculoskeletal: Denies back pain Integumentary/Breasts: Skin/Breast: Denies rash Neurologic: Denies confusion, Denies syncope and Denies headache(s) Psychiatric: Psychiatric: Denies confusion Endocrine: Endocrine: Denies fatigue Hematologic/Lymphatic: Hematologic/Lymphatic: Denies easy bleeding Allergic/Immunologic: Allergic/Immunologic: Denies wheezing [facility] Medical History LFT elevation Renal calculi HTN (hypertension) Lumbar degenerative disc disease Surgical History Hx of eye surgery History of surgery on right wrist History of amputation of finger Hx of repair of rotator cuff Hx of right knee surgery Social History Are you a primary home care consultant to a significant other at home: No Do you presently have visiting nurse or other home services: No Alcohol intake: former Patient Tobacco Use Status: Never used Tobacco Use of substances other than those prescribed or required for medical reasons: No Advance Directives: No Advance Directives Information Provided: No Current occupational status: employed 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, 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 Meds Allergies Allergy/AdvReac Type Severity Reaction Status Date / Time fentanyl Allergy Intermediate hives Verified 04/19/25 22:25 propofol Allergy Intermediate Itching, Verified 04/19/25 22:25 Rash acetaminophen AdvReac Intermediate Liver Verified 04/19/25 22:25 damage opiates AdvReac Intermediate Itching Uncoded 04/17/25 12:50 Active Medications: Current Medications Calcium Carbonate (Calcium Carbonate 750 Mg Tab.Chew) 750 mg PO Q4H PRN PRN Reason: Heartburn Enoxaparin Sodium (Enoxaparin Sodium 40 Mg/0.4 Ml Syringe) 40 mg SUBCUT Q24H COLTON Hydromorphone HCl (Hydromorphone Hcl 1 Mg/Ml Syringe) 0.5 mg IVPUSH Q4H PRN; Protocol PRN Reason: Pain, Severe (Pain Scale 7-10) Magnesium Hydroxide (Milk Of Magnesia 30 Ml Oral.Susp) 30 ml PO DAILY PRN PRN Reason: Constipation Melatonin (Melatonin 3 Mg Tablet) 6 mg PO BEDTIME PRN PRN Reason: Insomnia Ondansetron HCl (Ondansetron Hcl 4 Mg/2 Ml Vial) 4 mg IVPUSH Q8H PRN PRN Reason: Nausea and Vomiting Oxycodone HCl (Oxycodone Hcl Immed Release 5 Mg Tablet) 5 mg PO Q6H PRN PRN Reason: Pain, Moderate(Pain Scale 4-6) Sodium Chloride (0.9 % Sodium Chloride Flush 3 Ml Syringe) 3 ml IVFLUSH QSHIFT COLTON Home Medications ?Medication ?Instructions ?Recorded ?Confirmed ?Last Taken ?Type naproxen sodium 220 mg tablet 220 mg PO Q12H PRN Pain 09/30/22 04/15/25 04/15/25 02:00 History (Aleve) amlodipine 10 mg tablet 10 mg PO DAILY 04/08/2503/2904/17/25 History tadalafil 20 mg tablet 20 mg PO DAILY PRN intercour se 04/08/25 04/15/25 Unknown History Physical Exam 2 Vital Signs and Narrative: Vital Signs: Last Vital Signs Temp 98.3 F 04/20/25 03:00 Pulse 87 04/20/25 03:00 Resp 19 04/20/25 03:00 BP 136/80 04/20/25 03:00 Pulse Ox 94 04/20/25 03:00 O2 Del Method Room Air 04/20/25 03:00 BMI result Body Mass Index 40.0 General: AOx3, no acute distress Resp: crackles bilateral lung bases CVS: S1, S2, RRR GI: +BS, NT, no distention Skin: Warm, dry, evidence of skin picking on face Neuro: Cranial nerves II-XII grossly intact bilaterally. Motor grossly intact bilaterally Extremities: 3+ pitting edema Psych: irritable Const: General: No confusion Orientation/consciousness: No confusion Neuro: General: No confusion Results Labs 04/19/25 22:54 04/19/25 22:54 Labs: Laboratory Results - last 24 hr 04/19/25 04/20/25 04/20/25 22:54 01:33 02:06 MCV 91.3 MCH 29.7 MCHC 32.6 RDW 13.2 Plt Count 348 MPV 10.6 Immature Gran % (Auto) 1.0 H Neut % (Auto) 65.5 Lymph % (Auto) 22.8 [place] % (Auto) 8.3 Eos % (Auto) 1.8 Baso % (Auto) 0.6 Lymph # (Auto) 2.3 [place] # (Auto) 0.8 Eos # (Auto) 0.2 Baso # (Auto) 0.1 Abs Immat Gran (auto) 0.10 H Absolute Neuts (auto) 6.6 Absolute Nucleated RBC 0.000 Nucleated RBC % (auto) 0.0 Anion Gap 12 Estim Creat Clear Calc 155.6 Estimated GFR > 60 Random Glucose 96 Lactic Acid 1.0 Calcium 8.5 Total Bilirubin 0.2 AST 20 ALT 23 Alkaline Phosphatase 81 Troponin I High Sens 3.4 NT-Pro-B Natriuret Pep 911.3 H Total Protein 6.4 L Albumin 3.5 Urine Color Yellow Urine Appearance Clear Urine pH 6.5 Ur Specific [place] <= 1.005 Urine Protein Negative Urine Glucose (UA) Negative Urine Ketones Negative Urine Blood Negative Urine Nitrite Negative Ur Leukocyte Esterase Negative Influenza Type A (PCR) NEGATIVE Influenza Type B (PCR) NEGATIVE RSV RNA Qual (PCR) NEGATIVE SARS-CoV-2 RNA (RT-PCR) NEGATIVE Assessment and Plan (1) Anasarca: Status: Acute (2) New onset of congestive heart failure: Status: Acute (3) Multifocal pneumonia: Status: Acute Plan Patient is a 49-year-old male with a past medical history significant for hypertension and morbid obesity, recently s/p left lateral malleolus fracture treated surgically on April 17 (injury on April 04), who presents did to the ED due to rapidly progressive generalized edema and 47 lb weight gain. New onset CHF with anasarca and superimposed multifocal pneumonia - IV Lasix given in ED with conitnuing urine output, re-evaluate need for additional lasix in AM - echo - cardiology consult - ceftriaxone and doxycycline for multifocal pneumonia ? Aspiration - pt refusing DOZER OPERATOR swallow eval, insistent he needs to eat now. compromised with nursing swallow screen and is aware that it is not comprehensive - NPO pending bedside swallow - urine drug screen - monitor CBC and BMP Hypertension - continue home meds Morbid obesity - weight loss encouraged Med rec pending Full code VTE prophylaxis: Lovenox Patient with new onset CHF with anasarca and superimposed multifocal pneumonia, requiring admission for at least 2 midnight stay for further evaluation, IV antibiotics, diuresis and monitoring Quality Stroke Does the patient have a stroke diagnosis?: No VTE Prior VTE?: No VTE Risk Level:: Medical - moderate - high VTE Device Contraindication: Treatment Not Indicated VTE Drug Contraindication: N/A - Med Ordered
--- NOTE | 2025-04-20 05:06 | HO.NURTONUR ---
Pt BIBA from home, reports having surgery to left leg 2 days ago here and noting 30+ lbs weight gain to all over body. Pt reports feeling like skin is going to rip open and difficulty breathing. ABD noted to be distended, and right lower leg edema. Splint to left leg. Here in ED Pt BNP evevated. Pt being admited for New onset CHF with anasarca and superimposed multifocal pneumonia Here in ED pt was given IV Lasix given in ED with good urine output, plan to re-evaluate in a.m, echo, cardiology consult, ceftriaxone and doxycycline for multifocal pneumonia ? Aspiration and NPO pending swallow evaluation. Pt A&Ox3, ambulates with a walker, EMS 18G IV to left AC.
[2025-04-20 05:45] LABS: Hematocrit 34.4 % (42.0-52.0); Hemoglobin 11.6 g/dl (14.0-18.0); Imm Gran Abs Auto 0.09 X10*3/uL (0.00-0.03); Imm Gran Pct Auto 0.9 % (0.0-0.4); Lymphocytes Absolute Auto 2.0 X10*3/uL (1.2-4.9); MANUAL DIFF FLAG NO; Mean Corpuscular HGB Conc 33.7 g/dl (31.0-36.0); Mean Corpuscular Hemoglobin 30.1 pg (27.0-33.0); Mean Corpuscular Volume 89.4 fL (80.0-98.0); NRBC Abs Auto 0.000 X10*3/uL (0.0-0.012); NRBC Pct Auto 0.0 /100WBC (0.0-0.2); Platelet Count 343 X10*3/uL (160-400); Red Blood Count 3.85 X10*6/uL (4.60-5.80); White Blood Count 9.7 X10*3/uL (4.8-10.8)
[2025-04-20 05:58] LABS: Anion Gap 12 (12-20); Blood Urea Nitrogen 17 mg/dL (9-16); Calcium 8.8 mg/dL (8.4-10.2); Carbon Dioxide 27 mmol/L (22-29); Chloride 103 mmol/L (96-108); Creatinine Clr Calc Pharmacy 174.3; Estimated Glomerular Filt Rate > 60; Potassium 3.7 mmol/L (3.3-5.1); Sodium 138 mmol/L (135-145)
--- NOTE | 2025-04-20 07:46 | PHA.MEDREC ---
Pharmacy Consult ? Medication Reconciliation Pharmacy has completed the medication reconciliation. Spoke with patient at bedside, he confirmed all his medications. States he takes tylenol and benadryl over the counter, last taken yesterday.
[2025-04-20] MEDS: oxyCODONE HCl Immed Release 5 MG TABLET PO ×3 (07:47→23:45)
--- NOTE | 2025-04-20 09:26 | P.CONCA_ITS ---
History of Present Illness History of Present Illness Date of Service: 04/20/25 Chief complaint: edema Narrative: This is a cardiology consultation regarding weight gain and question of congestive heart failure. Patient has morbid obesity and recently had left leg fracture for which she had surgery last week. Apparently, he was not [place] and he thinks he had a bit too much to drink and had a fall related to that. In that context, developed left fracture. Initially seen in [place] but then he came here and had it surgically fixed/week. Over the last few days, he initially had left leg swelling which he thought was related to the fracture itself. However, then he started noticing right leg swelling and then his hands and abdomen also getting swollen and he gained a lot of weight. Subsequently, admitted. He is denying any anginal-type chest pains. Some shortness of breath as well although he is primarily concerned about the swelling and weight gain. No previous cardiac history. Has had abnormal liver enzymes about 27 years ago but nothing recently. He does drink regularly but denies anything excessive. Review of Systems 2 Review of Systems: Yes all other systems are reviewed and are negative Constitutional: Constitutional: Reports as per HPI and Reports no additional constitutional complaints Eyes: Eyes: Reports as per HPI and Denies no additional eye complaints ENT: Denies system reviewed and no additional complaints, except as documented and Reports as per HPI Cardiovascular: Cardiovascular: Reports as per HPI, Reports no additional cardiovascular complaints, Denies acrocyanosis, Denies cool extremities, Denies chest pain, Reports pedal edema, Reports leg edema, Denies lightheadedness, Denies palpitations and Denies dyspnea Respiratory: Respiratory: Reports as per HPI, Denies no additional respiratory complaints and Denies dyspnea Gastrointestinal: Gastrointestinal: Reports as per HPI and Denies no additional gastrointestinal complaints Genitourinary: Genitourinary: Reports no additional male genitourinary complaints and Reports as per HPI Musculoskeletal: Musculoskeletal: Reports no additional musculoskeletal complaints and Reports as per HPI Integumentary/Breasts: Skin/Breast: Reports system reviewed and no additional complaints, except as docu Neurologic: Reports system reviewed and no additional complaints, except as documented and Reports as per HPI Psychiatric: Psychiatric: Reports no additional psychiatric complaints and Reports as per HPI Endocrine: Endocrine: Reports no additional endocrine complaints, Reports as per HPI and Denies palpitations Hematologic/Lymphatic: Hematologic/Lymphatic: Reports no additional hematologic/lymphatic complaints and Reports as per HPI Allergic/Immunologic: Allergic/Immunologic: Reports no additional allergic/immunologic complaints and Reports as per HPI PMFSH Past Medical History Medical History LFT elevation Renal calculi HTN (hypertension) Lumbar degenerative disc disease Family History Pertinent family history: No significant cardiac history and family members. Possibly hypertension in father. Surgical History Surgical History Hx of eye surgery History of surgery on right wrist History of amputation of finger Hx of repair of rotator cuff Hx of right knee surgery Social History Social History Household Members: Significant Other Housing: Apartment Are you a primary career technical education instructor to a significant other at home: No Do you presently have visiting nurse or other home services: No Alcohol intake: former Patient Tobacco Use Status: Never used Tobacco Smoked in Last 30 Days: No e-Cigarette/Vaping Use: Never Used Use of substances other than those prescribed or required for medical reasons: No Have you been hit, kicked, punched, or otherwise hurt by someone within the past year? 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 Meds Allergies Allergy/AdvReac Type Severity Reaction Status Date / Time fentanyl Allergy Intermediate hives Verified 04/19/25 22:25 propofol Allergy Intermediate Itching, Verified 04/19/25 22:25 Rash acetaminophen AdvReac Intermediate Liver Verified 04/19/25 22:25 damage opiates AdvReac Intermediate Itching Uncoded 04/17/25 12:50 Active Medications: Current Medications Calcium Carbonate (Calcium Carbonate 750 Mg Tab.Chew) 750 mg PO Q4H PRN PRN Reason: Heartburn Enoxaparin Sodium (Enoxaparin Sodium 40 Mg/0.4 Ml Syringe) 40 mg SUBCUT DAILY [facility] Last Admin: 04/20/25 05:31 Dose: 40 mg Hydromorphone HCl (Hydromorphone Hcl 1 Mg/Ml Syringe) 0.5 mg IVPUSH Q4H PRN; Protocol PRN Reason: Pain, Severe (Pain Scale 7-10) Last Admin: 04/20/25 05:38 Dose: 0.5 mg Ceftriaxone Sodium 1 gm/ (Sodium Chloride) 50 mls @ 100 mls/hr IV Q24H [facility] Doxycycline Hyclate 100 mg/ (Sodium Chloride) 250 mls @ 166.67 mls/hr IV Q12H [facility] Magnesium Hydroxide (Milk Of Magnesia 30 Ml Oral.Susp) 30 ml PO DAILY PRN PRN Reason: Constipation Melatonin (Melatonin 3 Mg Tablet) 6 mg PO BEDTIME PRN PRN Reason: Insomnia Ondansetron HCl (Ondansetron Hcl 4 Mg/2 Ml Vial) 4 mg IVPUSH Q8H PRN PRN Reason: Nausea and Vomiting Oxycodone HCl (Oxycodone Hcl Immed Release 5 Mg Tablet) 5 mg PO Q6H PRN PRN Reason: Pain, Moderate(Pain Scale 4-6) Last Admin: 04/20/25 07:47 Dose: 5 mg Sodium Chloride (0.9 % Sodium Chloride Flush 3 Ml Syringe) [facility] Last Admin: 04/20/25 07:52 Dose: Not Given Home Medications ?Medication ?Instructions ?Recorded ?Confirmed ?Last Taken ?Type amlodipine 10 mg tablet 10 mg PO DAILY 04/08/2503/3004/19/25 History tadalafil 20 mg tablet 20 mg PO DAILY PRN intercour se 04/08/25 04/20/25 04/19/25 History acetaminophen 325 mg tablet 650 mg PO Q6H PRN Pain 04/20/25 04/19/25 History diphenhydramine HCl 25 mg tablet 25 mg PO BEDTIME PRN Insomnia 04/20/25 04/20/25 04/19/25 History Physical Exam 2 Vital Signs: Vital Signs: Last Vital Signs Temp 99.1 F 04/20/25 07:28 Pulse 79 04/20/25 07:28 Resp 16 04/20/25 07:28 BP 142/77 H 04/20/25 07:28 Pulse Ox 64 L 04/20/25 07:28 O2 Del Method Room Air 04/20/25 07:28 BMI result Body Mass Index 40.0 Const: General: comfortable and no acute distress O rientation/consciousness: patient oriented x3 HEENT: Other: Unremarkable Head: Yes normal to inspection Neck: Neck: Yes normal visual inspection Chest: Chest palpation & inspection: normal inspection of the chest Resp: Auscultation: clear to auscultation bilaterally Cardio: Palpation: normal PMI Heart sounds: S1 normal heart sound present, S2 normal heart sound present, no gallops, no murmurs and no rubs GI: Palpation (GI): Soft to palpation Back/Spine/Pelvis: Other: unremarkable Skin: General skin exam: no rashes or lesions noted Neuro: General: patient oriented x3 Extrem: Other: 1-2 + swelling lower extremities; swolle n hands General: Yes normal to inspection Psych: Mental Status: mental status grossly normal Objective Labs and Meds 04/20/25 05:40 04/20/25 05:40 Lab results: Laboratory Results - last 24 hr 04/19/25 04/20/25 04/20/25 22:54 01:33 02:06 WBC 10.1 RBC 3.80 L Hgb 11.3 L Hct 34.7 L MCV 91.3 MCH 29.7 MCHC 32.6 RDW 13.2 Plt Count 348 MPV 10.6 Immature Gran % (Auto) 1.0 H Neut % (Auto) 65.5 Lymph % (Auto) 22.8 [place] % (Auto) 8.3 Eos % (Auto) 1.8 Baso % (Auto) 0.6 Lymph # (Auto) 2.3 [place] # (Auto) 0.8 Eos # (Auto) 0.2 Baso # (Auto) 0.1 Abs Immat Gran (auto) 0.10 H Absolute Neuts (auto) 6.6 Absolute Nucleated RBC 0.000 Nucleated RBC % (auto) 0.0 Sodium 142 Potassium 4.1 Chloride 105 Carbon Dioxide 29 Anion Gap 12 BUN 21 H Creatinine 0.84 Estim Creat Clear Calc 155.6 Estimated GFR > 60 Random Glucose 96 Lactic Acid 1.0 Calcium 8.5 Total Bilirubin 0.2 AST 20 ALT 23 Alkaline Phosphatase 81 Troponin I High Sens 3.4 NT-Pro-B Natriuret Pep 911.3 H Total Protein 6.4 L Albumin 3.5 Urine Color Yellow Urine Appearance Clear Urine pH 6.5 Ur Specific [place] <= 1.005 Urine Protein Negative Urine Glucose (UA) Negative Urine Ketones Negative Urine Blood Negative Urine Nitrite Negative Ur Leukocyte Esterase Negative Influenza Type A (PCR) NEGATIVE Influenza Type B (PCR) NEGATIVE RSV RNA Qual (PCR) NEGATIVE SARS-CoV-2 RNA (RT-PCR) NEGATIVE 04/20/25 05:40 WBC 9.7 RBC 3.85 L Hgb 11.6 L Hct 34.4 L MCV 89.4 MCH 30.1 MCHC 33.7 RDW 13.2 Plt Count 343 MPV 10.9 Immature Gran % (Auto) 0.9 H Neut % (Auto) 66.8 Lymph % (Auto) 20.6 [place] % (Auto) 9.4 Eos % (Auto) 1.7 Baso % (Auto) 0.6 Lymph # (Auto) 2.0 [place] # (Auto) 0.9 Eos # (Auto) 0.2 Baso # (Auto) 0.1 Abs Immat Gran (auto) 0.09 H Absolute Neuts (auto) 6.5 Absolute Nucleated RBC 0.000 Nucleated RBC % (auto) 0.0 Sodium 138 Potassium 3.7 Chloride 103 Carbon Dioxide 27 Anion Gap 12 BUN 17 H Creatinine 0.75 Estim Creat Clear Calc 174.3 Estimated GFR > 60 Random Glucose 98 Lactic Acid Calcium 8.8 Total Bilirubin AST ALT Alkaline Phosphatase Troponin I High Sens NT-Pro-B Natriuret Pep Total Protein Albumin Urine Color Urine Appearance Urine pH Ur Specific [place] Urine Protein Urine Glucose (UA) Urine Ketones Urine Blood Urine Nitrite Ur Leukocyte Esterase Influenza Type A (PCR) Influenza Type B (PCR) RSV RNA Qual (PCR) SARS-CoV-2 RNA (RT-PCR) ECG Interpretation: EKG with sinus rhythm at 94/Min; PVCs; cannot exclude old anterior infarct but could be from body habitus; normal WA and corrected QT. Assessment and Plan (1) Acute CHF: Status: Acute Plan In the chest CTA, reported no pulmonary embolus; multifocal pneumonia. High sensitivity troponins within range. NT pro BNP slightly elevated at 911. His weight has been recorded at 265 lb 4 days ago but currently 311 lb. He is currently getting Lasix 40 mg IV daily. He may need to be rather put on a Lasix drip considering the immense weight gain and fluid overload. He is also on antibiotics. Etiology could be related to acute right heart failure possibly precipitated by the recent leg fracture/anesthesia/? Pneumonia but not entirely clear as yet. We will need an echocardiogram for further evaluation. Discussed with covering hospitalist. Recheck O2 sats, incase the recording of 64% erroneous. We will follow up with you. Procedures Date of Service Date of Service: 04/20/25
--- NOTE | 2025-04-20 10:39 | HO.PM.IMPN ---
Subjective Subjective Date of Service: 04/20/25 Interval History: Continued SOB with movement No orthopnea Still feels bloated, swollen No abd pain Denies CP Review of Systems Review of Systems: Yes all other systems are reviewed and are negative Physical Exam Exam: Exam: General: AOx3, no acute distress Resp: CTA bilaterally CVS: S1, S2, RRR GI: +BS, NT, mildly firm, moderately distended Skin: Warm, dry Neuro: Cranial nerves II-XII grossly intact bilaterally. Motor grossly intact bilaterally Extremities: 2+ bilateral pitting edema of lower extremities. Left lower extremity in splint Psych: Appropriate affect Vital Signs: Vital Signs: Last Vital Signs Temp 99.1 F 04/20/25 07:28 Pulse 79 04/20/25 07:28 Resp 16 04/20/25 07:28 BP 142/77 H 04/20/25 07:28 Pulse Ox 64 L 04/20/25 07:28 O2 Del Method Room Air 04/20/25 07:28 BMI result Body Mass Index 40.0 Objective Data Active Medications Amlodipine Besylate (Amlodipine Besylate 10 Mg Tablet) 10 mg PO DAILY [facility]; Protocol Last Admin: 04/20/25 10:28 Dose: 10 mg Documented By: SARAHI Calcium Carbonate (Calcium Carbonate 750 Mg Tab.Chew) 750 mg PO Q4H PRN PRN Reason: Heartburn Diphenhydramine HCl (Diphenhydramine Hcl 25 Mg Capsule) 25 mg PO BEDTIME PRN PRN Reason: Insomnia Enoxaparin Sodium (Enoxaparin Sodium 40 Mg/0.4 Ml Syringe) 40 mg SUBCUT DAILY [facility] Last Admin: 04/20/25 05:31 Dose: 40 mg Documented By: SHAHID Hydromorphone HCl (Hydromorphone Hcl 1 Mg/Ml Syringe) 0.5 mg IVPUSH Q4H PRN; Protocol PRN Reason: Pain, Severe (Pain Scale 7-10) Last Admin: 04/20/25 05:38 Dose: 0.5 mg Documented By: SHAHID Ceftriaxone Sodium 1 gm/ (Sodium Chloride) 50 mls @ 100 mls/hr IV Q24H [facility] Doxycycline Hyclate 100 mg/ (Sodium Chloride) 250 mls @ 166.67 mls/hr IV Q12H [facility] Magnesium Hydroxide (Milk Of Magnesia 30 Ml Oral.Susp) 30 ml PO DAILY PRN PRN Reason: Constipation Melatonin (Melatonin 3 Mg Tablet) 6 mg PO BEDTIME PRN PRN Reason: Insomnia Ondansetron HCl (Ondansetron Hcl 4 Mg/2 Ml Vial) 4 mg IVPUSH Q8H PRN PRN Reason: Nausea and Vomiting Oxycodone HCl (Oxycodone Hcl Immed Release 5 Mg Tablet) 5 mg PO Q6H PRN PRN Reason: Pain, Moderate(Pain Scale 4-6) Last Admin: 04/20/25 07:47 Dose: 5 mg Documented By: SARAHI Sodium Chloride (0.9 % Sodium Chloride Flush 3 Ml Syringe) 3 ml IVFLUSH QSHIFT [facility] Last Admin: 04/20/25 07:52 Dose: Not Given Documented By: SARAHI Non-Admin Reason: Previously Administered Labs 04/20/25 05:40 04/20/25 05:40 Labs: Laboratory Results - last 24 hr 04/19/25 04/20/25 04/20/25 22:54 01:33 02:06 MCV 91.3 MCH 29.7 MCHC 32.6 RDW 13.2 Plt Count 348 MPV 10.6 Immature Gran % (Auto) 1.0 H Neut % (Auto) 65.5 Lymph % (Auto) 22.8 [place] % (Auto) 8.3 Eos % (Auto) 1.8 Baso % (Auto) 0.6 Lymph # (Auto) 2.3 [place] # (Auto) 0.8 Eos # (Auto) 0.2 Baso # (Auto) 0.1 Abs Immat Gran (auto) 0.10 H Absolute Neuts (auto) 6.6 Absolute Nucleated RBC 0.000 Nucleated RBC % (auto) 0.0 Anion Gap 12 Estim Creat Clear Calc 155.6 Estimated GFR > 60 Random Glucose 96 Lactic Acid 1.0 Calcium 8.5 Total Bilirubin 0.2 AST 20 ALT 23 Alkaline Phosphatase 81 Troponin I High Sens 3.4 NT-Pro-B Natriuret Pep 911.3 H Total Protein 6.4 L Albumin 3.5 Urine Color Yellow Urine Appearance Clear Urine pH 6.5 Ur Specific [place] <= 1.005 Urine Protein Negative Urine Glucose (UA) Negative Urine Ketones Negative Urine Blood Negative Urine Nitrite Negative Ur Leukocyte Esterase Negative Influenza Type A (PCR) NEGATIVE Influenza Type B (PCR) NEGATIVE RSV RNA Qual (PCR) NEGATIVE SARS-CoV-2 RNA (RT-PCR) NEGATIVE 04/20/25 05:40 MCV 89.4 MCH 30.1 MCHC 33.7 RDW 13.2 Plt Count 343 MPV 10.9 Immature Gran % (Auto) 0.9 H Neut % (Auto) 66.8 Lymph % (Auto) 20.6 [place] % (Auto) 9.4 Eos % (Auto) 1.7 Baso % (Auto) 0.6 Lymph # (Auto) 2.0 [place] # (Auto) 0.9 Eos # (Auto) 0.2 Baso # (Auto) 0.1 Abs Immat Gran (auto) 0.09 H Absolute Neuts (auto) 6.5 Absolute Nucleated RBC 0.000 Nucleated RBC % (auto) 0.0 Anion Gap 12 Estim Creat Clear Calc 174.3 Estimated GFR > 60 Random Glucose 98 Lactic Acid Calcium 8.8 Total Bilirubin AST ALT Alkaline Phosphatase Troponin I High Sens NT-Pro-B Natriuret Pep Total Protein Albumin Urine Color Urine Appearance Urine pH Ur Specific [place] Urine Protein Urine Glucose (UA) Urine Ketones Urine Blood Urine Nitrite Ur Leukocyte Esterase Influenza Type A (PCR) Influenza Type B (PCR) RSV RNA Qual (PCR) SARS-CoV-2 RNA (RT-PCR) Assessment and Plan (1) Multifocal pneumonia: Status: Acute (2) Anasarca: Status: Acute Plan Patient is a 49-year-old male with a past medical history significant for hypertension and morbid obesity, recently s/p left lateral malleolus fracture treated surgically on April 17 (injury on April 04), who presents did to the ED due to rapidly progressive generalized edema and 47 lb weight gain. New onset CHF with anasarca - pt reports 47 lb weight gain in 3-4 days - currently on Lasix drip @10mg/h - echo - cardiology following - monitor lytes, creatinine, daily weights - low-salt diet - monitor volume status Likely superimposed multifocal pneumonia - ceftriaxone and doxycycline, day 1 - monitor respiratory status - monitor CBC and BMP Left lateral malleolus fracture - surgically repaired by Orthopedics on 04/17 - orthopedics consult Hypertension - continue home meds Obesity class II - weight loss encouraged Full code VTE prophylaxis: Lovenox Pt requires continued hospitalization as he is on a Lasix drip for anasarca concerning for new onset CHF. He will need close monitoring of labs, kidney function, electrolytes, as well as cardiac function. Quality Stroke Does the patient have a stroke diagnosis?: No VTE Prior VTE?: No VTE Risk Level:: Medical - moderate - high VTE Device Contraindication: Treatment Not Indicated VTE Drug Contraindication: N/A - Med Ordered
--- NOTE | 2025-04-20 11:03 | MHC.CM.PN ---
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
[2025-04-20] MEDS: Furosemide 200 MG in 0.9 % Sodium Chloride 80 ML IVCONT (11:57)
--- NOTE | 2025-04-20 12:53 | MHC.RECOVRN ---
Addendum entered by Alexy Kerr RN 04/21/25 11:47: Met w/ pt on 04/20 in room 461-2 after receiving an addiction consult for evaluation of alcohol use disorder. When t/w brought up alcohol use pt grimaced and became defensive and irritable. Pt did not understand why a catalyst operator chief would be requested to speak to him. T/w explained to pt that he must've had a positive audit c screening . Pt said No. It must been because I had asked not to be given any opiates because I had a hard time getting off of them before. It was a nightmare . This RN encouraged pt to talk about his concerns (if any) and if he was interested in discussing harm reduction strategies. Pt politely declined. Pt was encouraged to reach out should any issues arise. Pt decliend outpatient [facility] tx appoitnment for treatment and declined [facility]SE[facility] initiation. Original Note: Pt declined to meet with the ACS team. Stated he has a distant hx of taking oxycontin (prescribed) for pain and using it for 6 years and had difficulty getting off of it but currently denies concerns regarding addiction/recovery. Pt stated I just told the doctor that I don't want any opiates prescribed as I had a hard time getting off of them in the past but I don't really have any issues with addiction at this time .
[2025-04-20 18:18] LABS: Anion Gap 17 (12-20); Blood Urea Nitrogen 14 mg/dL (9-16); Calcium 9.3 mg/dL (8.4-10.2); Carbon Dioxide 30 mmol/L (22-29); Chloride 97 mmol/L (96-108); Creatinine Clr Calc Pharmacy 151.4; Estimated Glomerular Filt Rate > 60; Potassium 3.5 mmol/L (3.3-5.1); Sodium 140 mmol/L (135-145)
[2025-04-20] MEDS: Potassium Chloride ER 20 MEQ TAB.ER.PRT 40 MEQ PO (18:37)
--- NOTE | 2025-04-20 18:56 | PM.EVENT ---
Event Note Date of Service: 04/20/25 Event Note: NWW LLE Elevate leg above heart level on three pillows Time Spent With Patient Time: Total time managing care of this patient today ____ minutes.
[2025-04-20] MEDS: 0.9 % Sodium Chloride Flush 3 ML SYRINGE IVFLUSH (21:28)
[2025-04-21] VITALS (8 sets, daily range): BP systolic 124–143; BP diastolic 71–85; PULSE 77–86; RESP 16–18; TEMP 36.1–36.9; O2SAT 93–98; BMI 36.5
[2025-04-21 01:19] LABS: Cannabinoid Screen Urine Not Detected (Not Detect)
[2025-04-21] MEDS: Furosemide 200 MG in 0.9 % Sodium Chloride 80 ML IVCONT ×2 (03:12→22:05)
--- NOTE | 2025-04-21 07:00 | CA_ITS ---
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 There is mildly increased left ventricular wall thickness. The visually estimated ejection fraction is between 55-60%. There is no evidence of regional wall motion abnormalities. Diastolic function is normal for age. - Normal right ventricular cavity size and systolic function. - The left atrium is normal in size. The right atrium is normal in size. - There is no evidence of pulmonary hypertension. Findings Left Ventricle Normal left ventricular size and systolic function. There is mildly increased left ventricular wall thickness. The visually estimated ejection fraction is between 55-60%. There is no evidence of regional wall motion abnormalities. Diastolic function is normal for age. Right Ventricle Normal right ventricular cavity size and systolic function. Atria The left atrium is normal in size. The right atrium is normal in size. Aortic Valve Normal aortic valve structure and function. There is no aortic valve stenosis. There is no aortic valve regurgitation. Mitral Valve The mitral valve appears normal. There is no mitral valve regurgitation. There is no mitral valve stenosis. Pulmonic Valve The pulmonic valve is likely normal. Tricuspid Valve Normal tricuspid valve structure. There is no tricuspid valve regurgitation. Normal right atrial pressure. There is no evidence of pulmonary hypertension. Great Vessels All visible segments of the aorta are normal in size. The visualized portions of the pulmonary artery and branches are normal. Venous The inferior vena cava is normal in size and collapses greater than 50% with inspiration. Pericardium/Pleural There is no evidence of pericardial effusion. Prior Study Comparison No prior study available for comparison. Measurements 2D Linear Measurements IVSd: 1.21 0.6-0.9/0.6-1.0 cm LVIDd: 5.49 3.9-5.3/4.2-5.9 cm LVIDd Index: 2.12 2.4-3.2/2.2-3.1 cm/m2 LVIDs: 3.53 2.0-3.6 cm LVPWd: 1.27 0.7-1.1 cm LA Diam: 4.50 2.7-3.8/3.0-4.0 cm LAIDs Index: 1.74 1.5-2.3 cm/m2 LV Mass: 354.42 67-162/88-224 g LV Mass Index: 136.84 43-95/49-115 g/m2 LVOT Diam: 2.60 3.0+(-)1.3 cm Mitral Valve MV Pk E: 0.79 MV PK A: 0.98 MV Decel Time: 118.00 E/A: 0.80 E'Lateral: 13.20 E'Medial: 8.59 E/E' Med: 9.20 E/E' Lat: 6.00 PHT: 35.00 MVA PHT: 6.29 Decel Bath: 6.67 Aortic Valve AoV Pk Pawel: 1.62 AoV Mn Pawel: 1.09 AoV VTI: 0.30 AoV Pk Grad: 10.00 Aov Mn Grad: 6.00 PATRICE Cont.VTI: 3.98 LVOT LVOT Pk Pawel: 1.17 LVOT Mn Pawel: 0.77 LVOT VTI: 0.22 LVOT Pk Grad: 5.00 LVOT Mn Grad: 3.00 LVOT Diam: 2.60 LVOT Area: 5.31 Diastolic Function MV Pk E: 0.79 MV Pk A: 0.98 E/A: 0.80 E'Medial: 8.59 E/E' Med: 9.20 E' Laterial: 13.20 E/E' Lat: 6.00 Right Ventricle TAPSE (mm): 24.80 TVS' Pawel: 19.60 Tricuspid Valve TR Pk Pawel: 1.94 TR Pk Grad: 15.00 RA Press: 3.00 RVSP: 18.00 Great Vessels Aorta Sinus of Valsalva: 3.20 2.0-3.5 cm Ao Asc: 3.20 2.1-3.4 cm Pulmonary Valve PV Pk Pawel: 1.72 Peak PV Grad: 12.00 Updated in Other Vendor System with Status of Final Cade Zamora MD electronically signed on 04/21/2025 2:47:37 PM with status of Final
[2025-04-21 07:33] LABS: MANUAL DIFF FLAG NO
--- NOTE | 2025-04-21 07:39 | P.PNIM_ITS ---
Subjective Subjective Date of Service: 04/21/25 Interval History: Pt still on lasix drip @10 TTE done, awaiting read Pt deferred addiction med consult Pt to have splint change today 2/2 discomfort PT eval Pain regimen Usg abd to look for hepatic cirrhosis ?ETOH related Had questions about DC, I did tell him workup is pending Review of Systems Review of Systems: Yes all other systems are reviewed and are negative Physical Exam 2 Exam: Exam: General: AOx3, no acute distress Resp: CTA bilaterally CVS: S1, S2, RRR GI: +BS, NT, mildly firm, moderately distended Neuro: Motor grossly intact bilaterally Extremities: 2+ bilateral pitting edema of lower extremities (L >R). Left lower extremity in splint Vital Signs: Vital Signs: Last Vital Signs Temp 97.8 F 04/21/25 03:07 Pulse 78 04/21/25 03:07 Resp 18 04/21/25 03:41 BP 131/80 04/21/25 03:07 Pulse Ox 94 04/21/25 03:07 O2 Del Method Room Air 04/21/25 03:07 BMI result Body Mass Index 38.8 Objective Data Active Medications Amlodipine Besylate (Amlodipine Besylate 10 Mg Tablet) 10 mg PO DAILY [facility]; Protocol Last Admin: 04/20/25 10:28 Dose: 10 mg Documented By: SARAHI Calcium Carbonate (Calcium Carbonate 750 Mg Tab.Chew) 750 mg PO Q4H PRN PRN Reason: Heartburn Diphenhydramine HCl (Diphenhydramine Hcl 25 Mg Capsule) 25 mg PO BEDTIME PRN PRN Reason: Insomnia Last Admin: 04/21/25 00:45 Dose: 25 mg Documented By: ELVIN Enoxaparin Sodium (Enoxaparin Sodium 40 Mg/0.4 Ml Syringe) 40 mg SUBCUT DAILY [facility] Last Admin: 04/20/25 05:31 Dose: 40 mg Documented By: SERRANAngely Hydromorphone HCl (Hydromorphone Hcl 1 Mg/Ml Syringe) 0.5 mg IVPUSH Q4H PRN; Protocol PRN Reason: Pain, Severe (Pain Scale 7-10) Last Admin: 04/21/25 03:11 Dose: 0.5 mg Documented By: ELVIN Ceftriaxone Sodium 1 gm/ (Sodium Chloride) 50 mls @ 100 mls/hr IV Q24H [facility] Last Infusion: 04/21/25 05:55 Dose: Infused Documented By: ELVIN Doxycycline Hyclate 100 mg/ (Sodium Chloride) 250 mls @ 166.67 mls/hr IV Q12H [facility] Last Admin: 04/21/25 05:55 Dose: 166.67 mls/hr Documented By: ELVIN Furosemide 200 mg/ Sodium (Chloride) 100 mls @ 5 mls/hr IVCONT .Q20H [facility] Last Admin: 04/21/25 03:12 Dose: 10 mg/hr, 5 mls/hr Documented By: ELVIN Magnesium Hydroxide (Milk Of Magnesia 30 Ml Oral.Susp) 30 ml PO DAILY PRN PRN Reason: Constipation Melatonin (Melatonin 3 Mg Tablet) 6 mg PO BEDTIME PRN PRN Reason: Insomnia Ondansetron HCl (Ondansetron Hcl 4 Mg/2 Ml Vial) 4 mg IVPUSH Q8H PRN PRN Reason: Nausea and Vomiting Oxycodone HCl (Oxycodone Hcl Immed Release 5 Mg Tablet) 5 mg PO Q6H PRN PRN Reason: Pain, Moderate(Pain Scale 4-6) Last Admin: 04/20/25 23:45 Dose: 5 mg Documented By: ELVIN Sodium Chloride (0.9 % Sodium Chloride Flush 3 Ml Syringe) 3 ml IVFLUSH QSHIFT [facility] Last Admin: 04/20/25 21:28 Dose: 3 ml Documented By: ELVIN Labs 04/21/25 07:17 04/21/25 07:17 Labs: Laboratory Results - last 24 hr 04/20/25 04/20/25 01:33 17:40 Anion Gap 17 Estim Creat Clear Calc 151.4 Estimated GFR > 60 Random Glucose 107 Calcium 9.3 Urine Opiates Screen POSITIVE H Ur Buprenorphine Scrn Not Detected Ur Oxycodone Screen Positive H Urine Methadone Screen Not Detected Urine Fentanyl Screen Not Detected Ur Barbiturates Screen Not Detected Ur Phencyclidine Scrn Not Detected Ur Amphetamines Screen Not Detected U Benzodiazepines Scrn Not Detected Urine Cocaine Screen Not Detected U Marijuana (THC) Screen Not Detected Microbiology Microbiology Results: Microbiology 04/20/25 02:03 Blood Culture - Preliminary Blood - Venous No growth after 24 hours. 11/23/25 02:06 Blood Culture - Preliminary Blood - Venous No growth after 24 hours. Assessment and Plan (1) Multifocal pneumonia: Status: Acute (2) Anasarca: Status: Acute Plan Patient is a 49-year-old male with a past medical history significant for hypertension and morbid obesity, recently s/p left lateral malleolus fracture treated surgically on April 17 (injury on April 04), who presents did to the ED due to rapidly progressive generalized edema and 47 lb weight gain. New onset CHF with anasarca - pt reports 47 lb weight gain in 3-4 days - currently on Lasix drip @10mg/h - TTE done , awaiting read - cardiology consulted , appreciate recs - monitor lytes, creatinine, daily weights - low-salt diet - monitor volume status Likely superimposed multifocal pneumonia - ceftriaxone and doxycycline, day 2, will deescalate per HDS - monitor respiratory status - monitor CBC and BMP Left lateral malleolus fracture s/p surgical repair 04/17 Splint change today as pt reports discomfort pain meds being adjusted - orthopedics consult Hypertension - continue home meds Obesity class II - weight loss encouraged Full code VTE prophylaxis: Robinx Pt requires continued hospitalization as he is on a Lasix drip for anasarca concerning for new onset CHF. He will need close monitoring of labs, kidney function, electrolytes, as well as cardiac function. This note is constructed using voice recognition software. While every effort has been made to ensure accuracy, automatic grinding machine operator errors may have been included. Quality Stroke Does the patient have a stroke diagnosis?: No VTE Prior VTE?: No VTE Risk Level:: Medical - moderate - high VTE Device Contraindication: Treatment Not Indicated VTE Drug Contraindication: N/A - Med Ordered
[2025-04-21 07:44] LABS: Hematocrit 38.9 % (42.0-52.0); Hemoglobin 12.9 g/dl (14.0-18.0); Imm Gran Abs Auto 0.04 X10*3/uL (0.00-0.03); Imm Gran Pct Auto 0.5 % (0.0-0.4); Lymphocytes Absolute Auto 2.1 X10*3/uL (1.2-4.9); Mean Corpuscular HGB Conc 33.2 g/dl (31.0-36.0); Mean Corpuscular Hemoglobin 29.7 pg (27.0-33.0); Mean Corpuscular Volume 89.6 fL (80.0-98.0); NRBC Abs Auto 0.000 X10*3/uL (0.0-0.012); NRBC Pct Auto 0.0 /100WBC (0.0-0.2); Platelet Count 394 X10*3/uL (160-400); Red Blood Count 4.34 X10*6/uL (4.60-5.80); White Blood Count 7.6 X10*3/uL (4.8-10.8)
[2025-04-21 07:58] LABS: Anion Gap 15 (12-20); Blood Urea Nitrogen 14 mg/dL (9-16); Calcium 9.3 mg/dL (8.4-10.2); Carbon Dioxide 31 mmol/L (22-29); Chloride 97 mmol/L (96-108); Creatinine Clr Calc Pharmacy 135.5; Estimated Glomerular Filt Rate > 60; Potassium 3.6 mmol/L (3.3-5.1); Sodium 139 mmol/L (135-145)
[2025-04-21] MEDS: 0.9 % Sodium Chloride Flush 3 ML SYRINGE IVFLUSH ×2 (08:06→16:20)
--- NOTE | 2025-04-21 08:36 | P.CONOP_ITS ---
History of Present Illness HPI Consult date: 04/21/25 Chief complaint: edema Narrative: 49-year-old gentleman admitted to the medical service for acute Congestive heart failure exacerbation. Patient is status post ORIF of the left ankle on 03/[address] Serrano. He is currently in a posterior splint. States the splint is irritating the heel. He has an appointment in our office tomorrow for splint change. Denies fever or chills. Review of Systems 2 Review of Systems: Yes all other systems are reviewed and are negative PMFSH Past Medical History Medical History LFT elevation Renal calculi HTN (hypertension) Lumbar degenerative disc disease Surgical History Surgical History Hx of eye surgery History of surgery on right wrist History of amputation of finger Hx of repair of rotator cuff Hx of right knee surgery Social History Social History Household Members: Significant Other Housing: Apartment Are you a primary rn homecare to a significant other at home: No Do you presently have visiting nurse or other home services: No Alcohol intake: former Patient Tobacco Use Status: Never used Tobacco Smoked in Last 30 Days: No e-Cigarette/Vaping Use: Never Used Use of substances other than those prescribed or required for medical reasons: No Currently Displaying Signs/Symptoms of Drug Intoxication Withdrawal: No Have you been hit, kicked, punched, or otherwise hurt by someone within the past year? 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 Meds Allergies Allergy/AdvReac Type Severity Reaction Status Date / Time fentanyl Allergy Intermediate hives Verified 04/19/25 22:25 propofol Allergy Intermediate Itching, Verified 04/19/25 22:25 Rash acetaminophen AdvReac Intermediate Liver Verified 04/19/25 22:25 damage opiates AdvReac Intermediate Itching Uncoded 04/17/25 12:50 Active Medications: Current Medications Amlodipine Besylate (Amlodipine Besylate 10 Mg Tablet) 10 mg PO DAILY [facility]; Protocol Last Admin: 04/21/25 08:03 Dose: 10 mg Calcium Carbonate (Calcium Carbonate 750 Mg Tab.Chew) 750 mg PO Q4H PRN PRN Reason: Heartburn Diphenhydramine HCl (Diphenhydramine Hcl 25 Mg Capsule) 25 mg PO BEDTIME PRN PRN Reason: Insomnia Last Admin: 04/21/25 00:45 Dose: 25 mg Enoxaparin Sodium (Enoxaparin Sodium 40 Mg/0.4 Ml Syringe) 40 mg SUBCUT DAILY [facility] Last Admin: 04/21/25 08:04 Dose: 40 mg Hydromorphone HCl (Hydromorphone Hcl 1 Mg/Ml Syringe) 0.5 mg IVPUSH Q4H PRN; Protocol PRN Reason: Pain, Severe (Pain Scale 7-10) Last Admin: 04/21/25 07:45 Dose: 0.5 mg Ceftriaxone Sodium 1 gm/ (Sodium Chloride) 50 mls @ 100 mls/hr IV Q24H [facility] Last Infusion: 04/21/25 05:55 Dose: Infused Doxycycline Hyclate 100 mg/ (Sodium Chloride) 250 mls @ 166.67 mls/hr IV Q12H [facility] Last Infusion: 04/21/25 07:40 Dose: Infused Furosemide 200 mg/ Sodium (Chloride) 100 mls @ 5 mls/hr IVCONT .Q20H [facility] Last Admin: 04/21/25 03:12 Dose: 10 mg/hr, 5 mls/hr Magnesium Hydroxide (Milk Of Magnesia 30 Ml Oral.Susp) 30 ml PO DAILY PRN PRN Reason: Constipation Melatonin (Melatonin 3 Mg Tablet) 6 mg PO BEDTIME PRN PRN Reason: Insomnia Ondansetron HCl (Ondansetron Hcl 4 Mg/2 Ml Vial) 4 mg IVPUSH Q8H PRN PRN Reason: Nausea and Vomiting Oxycodone HCl (Oxycodone Hcl Immed Release 5 Mg Tablet) 5 mg PO Q6H PRN PRN Reason: Pain, Moderate(Pain Scale 4-6) Last Admin: 04/20/25 23:45 Dose: 5 mg Sodium Chloride (0.9 % Sodium Chloride Flush 3 Ml Syringe) 3 ml IVFLUSH QSHIFT [facility] Last Admin: 04/21/25 08:06 Dose: 3 ml Home Medications ?Medication ?Instructions ?Recorded ?Confirmed ?Last Taken ?Type amlodipine 10 mg tablet 10 mg PO DAILY 04/08/2503/3004/19/25 History tadalafil 20 mg tablet 20 mg PO DAILY PRN intercour se 04/08/25 04/20/25 04/19/25 History acetaminophen 325 mg tablet 650 mg PO Q6H PRN Pain 04/20/25 04/19/25 History diphenhydramine HCl 25 mg tablet 25 mg PO BEDTIME PRN Insomnia 04/20/25 04/20/25 04/19/25 History Physical Exam 2 Vital Signs: Vital Signs: Last Vital Signs Temp 98.0 F 04/21/25 07:52 Pulse 79 04/21/25 07:52 Resp 16 04/21/25 07:52 BP 124/76 04/21/25 07:52 Pulse Ox 93 04/21/25 07:52 O2 Del Method Room Air 04/21/25 07:52 BMI result Body Mass Index 36.5 Const: General: cooperative, healthy appearing and no acute distress Resp: Effort & Inspection: normal respiratory effort and able to speak in complete sentences Cardio: Rate: regular rate Peripheral pulses: Peripheral pulses 2+ throughout GI: Palpation (GI): Soft to palpation Skin: General skin exam: no rashes or lesions noted Extrem: Other: Left ankle splint is clean dry and intact. He is able to move his toes and he has good sensation and cap refill. Results Labs 04/21/25 07:17 04/21/25 07:17 Labs: Abnormal lab results 04/20/25 04/20/25 04/21/25 Range/Units 01:33 17:40 07:17 RBC 4.34 L (4.60-5.80) X10*6/uL Hgb 12.9 L (14.0-18.0) g/dl Hct 38.9 L (42.0-52.0) % Immature Gran % (Auto) 0.5 H (0.0-0.4) % Abs Immat Gran (auto) 0.04 H (0.00-0.03) X10*3/uL Carbon Dioxide 30 H 31 H (22-29) mmol/L Urine Opiates Screen POSITIVE H (Not Detect) Ur Oxycodone Screen Positive H (Not Detect) ng/mL H & H 04/19/25 04/20/25 04/21/25 Range/Units 22:54 05:40 07:17 Hgb 11.3 L 11.6 L 12.9 L (14.0-18.0) g/dl Hct 34.7 L 34.4 L 38.9 L (42.0-52.0) % All other labs normal. Assessment and Plan (1) Closed fracture of left distal fibula: Status: Acute Plan Plan for splint change later today Nonweightbearing left lower extremity Elevate above heart level on 3 pillows Continue pain management Follow up with Orthopedics in 1 week for x-rays and staple removal Procedures Date of Service Date of Service: 04/21/25 Orthopedic Splinting/Casting Injury #1: Side: left Lower extremity injury location: ankle Lower extremity immobilizer: posterior splint
--- NOTE | 2025-04-21 10:31 | PC.NURSE ---
pt requesting opiates for pain to hid left foot pt has allergy to opiates, he stated that adverse reaction is itchiness but not always , pt stated that he takes Benadryl at times with opiates for itchiness Md Mccarty was notified about adverse reaction in the past. will discuss with the patient about pain management for his left foot .
[2025-04-21] MEDS: oxyCODONE HCl Immed Release 5 MG TABLET PO ×2 (10:50→19:38)
--- NOTE | 2025-04-21 11:29 | P.PNCA_ITS ---
Subjective Subjective Date of Service: 04/21/25 Interval history: Seen and examined at bedside. On Lasix drip and clinically improving. ECHO done today and has not been reviewed yet. Physical Exam Vital Signs: Last Vital Signs Temp 98.4 F 04/21/25 11:19 Pulse 77 04/21/25 11:19 Resp 16 04/21/25 11:19 BP 138/71 04/21/25 11:19 Pulse Ox 93 04/21/25 11:19 O2 Del Method Room Air 04/21/25 11:19 BMI result Body Mass Index 36.5 GENERAL APPEARANCE: in no acute distress, pleasant. NECK: no carotid bruit, no jugular venous distention. SKIN: no suspicious lesions, warm and dry. HEART: no murmurs, regular rate and rhythm. LUNGS: clear to auscultation bilaterally. ABDOMEN: soft, nontender. Mildly distended. EXTREMITIES: Left foot and leg in cast. No significant leg edema currently. Left hand edema. PERIPHERAL PULSES: equal. NEUROLOGIC: No gross deficits, AAO X 3 Objective Labs and Meds 04/21/25 07:17 04/21/25 07:17 Lab results: Laboratory Results - last 24 hr 04/20/25 04/20/25 04/21/25 01:33 17:40 07:17 WBC 7.6 RBC 4.34 L Hgb 12.9 L Hct 38.9 L MCV 89.6 MCH 29.7 MCHC 33.2 RDW 12.7 Plt Count 394 MPV 10.8 Immature Gran % (Auto) 0.5 H Neut % (Auto) 59.1 Lymph % (Auto) 27.2 [place] % (Auto) 10.8 Eos % (Auto) 2.0 Baso % (Auto) 0.4 Lymph # (Auto) 2.1 [place] # (Auto) 0.8 Eos # (Auto) 0.2 Baso # (Auto) 0.0 Abs Immat Gran (auto) 0.04 H Absolute Neuts (auto) 4.5 Absolute Nucleated RBC 0.000 Nucleated RBC % (auto) 0.0 Sodium 140 139 Potassium 3.5 3.6 Chloride 97 97 Carbon Dioxide 30 H 31 H Anion Gap 17 15 BUN 14 14 Creatinine 0.85 0.92 Estim Creat Clear Calc 151.4 135.5 Estimated GFR > 60 > 60 Random Glucose 107 109 Calcium 9.3 9.3 Urine Opiates Screen POSITIVE H Ur Buprenorphine Scrn Not Detected Ur Oxycodone Screen Positive H Urine Methadone Screen Not Detected Urine Fentanyl Screen Not Detected Ur Barbiturates Screen Not Detected Ur Phencyclidine Scrn Not Detected Ur Amphetamines Screen Not Detected U Benzodiazepines Scrn Not Detected Urine Cocaine Screen Not Detected U Marijuana (THC) Screen Not Detected Progress Note: A&P Assessment and plan (1) Anasarca: Status: Acute Plan [age] year gentleman with multifocal pneumonia, recent fall in [place] with foot fracture status post surgery in [place] and diffuse anasarca. Etiology of anasarca is unclear but he is saying that his face was swollen which is usually seen with nephrogenic or liver cause this. He has no orthopnea or PND. He has been a drinker for long time and previously had abnormal liver function. He continues to drink whiskey. Check ultrasound to assess the liver. We will review the echocardiogram today. Continue IV diuretics for now. Urinalysis is negative for protein and unlikely to be nephrotic syndrome. Continue antibiotics for pneumonia. Would consider transitioning to oral diuretics by tomorrow after examining him. Thank you for allowing me to participate in the care of your patient. Please feel free to contact me if you have any questions. Time Spent With Patient Time: Total time managing care of this patient today ____ minutes. Progress Note: Quality Stroke Does the patient have a stroke diagnosis?: No Procedures Date of Service Date of Service: 04/21/25
--- NOTE | 2025-04-21 13:11 | PC.NURSE ---
Addendum entered by Lili Fuentes RN 04/21/25 16:34: MD was notified again about US order that nursing does not do US test , it has to be done but different department Original Note: ultrasound of RUQ ordered by Dr Mccarty under nursing . was notified to clarify on order
--- NOTE | 2025-04-21 13:18 | MHC.SL.SWA ---
Speech Pathologist Impression: Oropharyngeal Swallow WFL Risk of Aspiration Due to: Hx of aspiration Hx of reflux Dysphasia Diet Status: Regular diet/thin liquids as ordered. Upright positioning, cease speaking/laughing when eating, alternate consistencies, slow pace Liquid Consistency and Strategies for Safe Swallow: Liquid Intake Recommendation: Thin Liquid Intake Strategies: Solid Food Consistency: Dietary Recommendations: Regular Additional Modifications to Solid Foods: Oral Medication Intake: Whole with Liquid Please contact the pharmacy regarding appropriate crushable or liquid drug formulations that are available whenever modified delivery is recommended. Compensatory Strategies and Precautions to be Taken for Safe Swallow: Slow pacing, alternate consistencies, avoid speaking/laughing when eating, remain upright after meal for 30 minutes Supervision While Eating and Drinking for Safe Swallow: None Needed Foods to Avoid: Swallowing Recommended Treatments: Recommendation for Speech: Inpatient Speech Therapy Comment: Pt presents with adequate oropharyngeal coordination, no overt s/s of aspiration with solids and thins. Pt endorses hx of coughing when speaking while eating/drinking. Pt endorses hx of reflux. Pt verbalized understanding of education/suggestions in maintaining adequate airway protection during PO intake. Pt in agreement with HEAVY MACHINERY ASSEMBLER followup as indicated. RN consulted, no concerns reported. MD notified via secure text of diet/safety recommendations. Frequency/Duration: Followup during inpatient x2 Date Range for Service Req: Timeline to reassess: Post Office Markup Clerk Clinican/Clinical Fellow: No Supervisory Statement: I have reviewed and agree with the student/clinical fellow's documentation: N/A Speech Language Pathologist: Debo Collado M.S., [facility]-HEAV[employer] MACHINERY ASSEMBLER
--- NOTE | 2025-04-21 15:46 | PM.EVENT ---
Event Note Date of Service: 04/21/25 Event Note: Addiction consult placed secondary to +AUDIT C screen Patient seen by territory business manager. Patient denied any alcohol use and declined to meet Chart reviewed -no other indication or report of alcohol use. Please re-consult if needed or if additional concerns related to possible alcohol use present during admission Time Spent With Patient Time: Total time managing care of this patient today ____ minutes.
[2025-04-22] MEDS: 0.9 % Sodium Chloride Flush 3 ML SYRINGE IVFLUSH ×4 (01:47→19:18)
[2025-04-22 02:56] VITALS: BP 143/78; PULSE 70; RESP 18; TEMP 36.8; O2SAT 93
[2025-04-22 06:00] VITALS: BMI 36.8
[2025-04-22 07:11] LABS: Hematocrit 40.0 % (42.0-52.0); Hemoglobin 13.8 g/dl (14.0-18.0); Imm Gran Abs Auto 0.06 X10*3/uL (0.00-0.03); Imm Gran Pct Auto 0.7 % (0.0-0.4); Lymphocytes Absolute Auto 2.3 X10*3/uL (1.2-4.9); MANUAL DIFF FLAG NO; Mean Corpuscular HGB Conc 34.5 g/dl (31.0-36.0); Mean Corpuscular Hemoglobin 30.5 pg (27.0-33.0); Mean Corpuscular Volume 88.5 fL (80.0-98.0); NRBC Abs Auto 0.000 X10*3/uL (0.0-0.012); NRBC Pct Auto 0.0 /100WBC (0.0-0.2); Platelet Count 414 X10*3/uL (160-400); Red Blood Count 4.52 X10*6/uL (4.60-5.80); White Blood Count 8.1 X10*3/uL (4.8-10.8)
[2025-04-22 07:24] VITALS: BP 141/67; PULSE 80; RESP 18; TEMP 36.4; O2SAT 94
[2025-04-22 07:34] LABS: Alanine Aminotransferase 25 U/L (0-40); Albumin Level 4.2 g/dL (3.5-5.0); Alkaline Phosphatase 106 U/L (39-117); Anion Gap 14 (12-20); Aspartate Amino Transferase 24 U/L (5-37); Blood Urea Nitrogen 18 mg/dL (9-16); Calcium 9.4 mg/dL (8.4-10.2); Carbon Dioxide 33 mmol/L (22-29); Chloride 94 mmol/L (96-108); Creatinine Clr Calc Pharmacy 126.5; Estimated Glomerular Filt Rate > 60; Magnesium 2.3 mg/dL (1.6-2.6); Potassium 3.6 mmol/L (3.3-5.1); Sodium 137 mmol/L (135-145); Total Protein 7.4 g/dL (6.5-8.0)
[2025-04-22] MEDS: oxyCODONE HCl Immed Release 5 MG TABLET PO ×2 (10:23→19:17)
[2025-04-22 11:14] VITALS: BP 134/73; PULSE 90; RESP 18; TEMP 36.2; O2SAT 96
--- NOTE | 2025-04-22 13:35 | PM.PNCARD ---
Subjective Subjective Date of Service: 04/22/25 Interval history: Seen examined at bedside. Echocardiography reviewed and discussed with the patient. Overall appears to be doing well with diuretics. Physical Exam Vital Signs: Last Vital Signs Temp 97.2 F 04/22/25 11:14 Pulse 90 04/22/25 11:14 Resp 18 04/22/25 11:14 BP 134/73 04/22/25 11:14 Pulse Ox 96 04/22/25 11:14 O2 Del Method Room Air 04/22/25 11:14 BMI result Body Mass Index 36.8 GENERAL APPEARANCE: in no acute distress, pleasant. NECK: no carotid bruit, no jugular venous distention. SKIN: no suspicious lesions, warm and dry. HEART: no murmurs, regular rate and rhythm. LUNGS: clear to auscultation bilaterally. ABDOMEN: soft, nontender. EXTREMITIES: no edema. Left foot in cast. PERIPHERAL PULSES: equal. NEUROLOGIC: No gross deficits, AAO X 3 Objective Labs and Meds 04/22/25 07:01 04/22/25 07:01 Lab results: Laboratory Results - last 24 hr 04/22/25 07:01 WBC 8.1 RBC 4.52 L Hgb 13.8 L Hct 40.0 L MCV 88.5 MCH 30.5 MCHC 34.5 RDW 12.8 Plt Count 414 H MPV 10.5 Immature Gran % (Auto) 0.7 H Neut % (Auto) 57.5 Lymph % (Auto) 27.8 [place] % (Auto) 10.5 Eos % (Auto) 3.1 Baso % (Auto) 0.4 Lymph # (Auto) 2.3 [place] # (Auto) 0.9 Eos # (Auto) 0.3 Baso # (Auto) 0.0 Abs Immat Gran (auto) 0.06 H Absolute Neuts (auto) 4.6 Absolute Nucleated RBC 0.000 Nucleated RBC % (auto) 0.0 Sodium 137 Potassium 3.6 Chloride 94 L Carbon Dioxide 33 H Anion Gap 14 BUN 18 H Creatinine 0.99 Estim Creat Clear Calc 126.5 Estimated GFR > 60 Random Glucose 111 Calcium 9.4 Magnesium 2.3 Total Bilirubin 0.5 AST 24 ALT 25 Alkaline Phosphatase 106 Total Protein 7.4 Albumin 4.2 Imaging Radiologist's impression: Impressions Abdomen Ultrasound 04/22/25 09:27 IMPRESSION: Hepatic steatosis. Electronically signed by: Negro Kent MD 04/22/2025 09:56 AM EST Progress Note: A&P Assessment and plan (1) New onset of congestive heart failure: Status: Acute (2) Anasarca: Status: Acute Plan [age] year gentleman with background of alcohol use presenting with diffuse anasarca. Echocardiography has shown normal biventricular function. He was diuresed and overall has improved. No other obvious cause for anasarca found currently. He has hepatic steatosis and I have advised him not to drink alcohol any more. He is on a Lasix drip. I think this can be discontinued and he can be started on 40 mg p.o. daily Lasix. Add spironolactone 25 mg daily. Stop the amlodipine-it will cause peripheral edema and we will make future assessment more difficult. Etiology is unclear but likely related to congestive heart failure. If BP rising then we will add 25 mg of losartan. Thank you for allowing me to participate in the care of your patient. Please feel free to contact me if you have any questions. Time Spent With Patient Time: Total time managing care of this patient today ____ minutes. Progress Note: Quality Stroke Does the patient have a stroke diagnosis?: No Procedures Date of Service Date of Service: 04/22/25
--- NOTE | 2025-04-22 13:54 | MHC.SLORD ---
Speech Language Pathology Order Status: Patient sleeping this date. RN with no concerns. Patient tolerating current diet of regular solids, thin liquids. BUSINESS SYSTEMS DEVELOPER to follow-up x1.
--- NOTE | 2025-04-22 14:57 | HO.PM.IMPN ---
Subjective Subjective Date of Service: 04/22/25 Interval History: Patient has splint revision Patient is of Lasix drip switch to p.o. Patient reports significant improvement We are unsure about his dry weight but based on his current clinical status he reports being back to his baseline and he would like to get discharged Ultrasound of the liver hepatic steatosis likely secondary to fatty liver-outpatient GI follow-up Addiction Medicine consult deferred by the patient If he remains hemodynamically stable can be discharged tomorrow Review of Systems Review of Systems: Yes all other systems are reviewed and are negative Physical Exam Vital Signs: Vital Signs: Last Vital Signs Temp 97.2 F 04/22/25 11:14 Pulse 90 04/22/25 11:14 Resp 18 04/22/25 11:14 BP 134/73 04/22/25 11:14 Pulse Ox 96 04/22/25 11:14 O2 Del Method Room Air 04/22/25 11:14 BMI result Body Mass Index 36.8 GENERAL APPEARANCE: in no acute distress, pleasant. HEART: no murmurs, regular rate and rhythm. LUNGS: clear to auscultation bilaterally. ABDOMEN: soft, nontender. Mildly distended. EXTREMITIES: Left foot and leg in cast. NEUROLOGIC: No gross deficits, AAO X 3 Objective Data Active Medications Amoxicillin/Clavulanate Potassium (Amoxicillin/Potassium Clav 875 Mg Tablet) 875 mg PO Q12H [facility] Last Admin: 04/22/25 12:31 Dose: 875 mg Documented By: DK Calcium Carbonate (Calcium Carbonate 750 Mg Tab.Chew) 750 mg PO Q4H PRN PRN Reason: Heartburn Diphenhydramine HCl (Diphenhydramine Hcl 25 Mg Capsule) 25 mg PO Q6H PRN PRN Reason: Itching Last Admin: 04/22/25 11:04 Dose: 25 mg Documented By: COSME Enoxaparin Sodium (Enoxaparin Sodium 40 Mg/0.4 Ml Syringe) 40 mg SUBCUT DAILY [facility] Last Admin: 04/22/25 10:21 Dose: 40 mg Documented By: DK Hydromorphone HCl (Hydromorphone Hcl 1 Mg/Ml Syringe) 0.5 mg IVPUSH Q4H PRN; Protocol PRN Reason: Pain, Severe (Pain Scale 7-10) Last Admin: 04/22/25 12:31 Dose: 0.5 mg Documented By: DK Furosemide 200 mg/ Sodium (Chloride) 100 mls @ 5 mls/hr IVCONT .Q20H [facility] Last Admin: 04/21/25 22:05 Dose: 10 mg/hr, 5 mls/hr Documented By: BAO Magnesium Hydroxide (Milk Of Magnesia 30 Ml Oral.Susp) 30 ml PO DAILY PRN PRN Reason: Constipation Melatonin (Melatonin 3 Mg Tablet) 6 mg PO BEDTIME PRN PRN Reason: Insomnia Ondansetron HCl (Ondansetron Hcl 4 Mg/2 Ml Vial) 4 mg IVPUSH Q8H PRN PRN Reason: Nausea and Vomiting Oxycodone HCl (Oxycodone Hcl Immed Release 5 Mg Tablet) 5 mg PO Q6H PRN PRN Reason: Pain, Moderate(Pain Scale 4-6) Last Admin: 04/22/25 10:23 Dose: 5 mg Documented By: DK Sodium Chloride (0.9 % Sodium Chloride Flush 3 Ml Syringe) 3 ml IVFLUSH QSHIFT [facility] Last Admin: 04/22/25 10:21 Dose: 3 ml Documented By: DK Labs 04/22/25 07:01 04/22/25 07:01 Labs: Laboratory Results - last 24 hr 04/22/25 07:01 MCV 88.5 MCH 30.5 MCHC 34.5 RDW 12.8 Plt Count 414 H MPV 10.5 Immature Gran % (Auto) 0.7 H Neut % (Auto) 57.5 Lymph % (Auto) 27.8 [place] % (Auto) 10.5 Eos % (Auto) 3.1 Baso % (Auto) 0.4 Lymph # (Auto) 2.3 [place] # (Auto) 0.9 Eos # (Auto) 0.3 Baso # (Auto) 0.0 Abs Immat Gran (auto) 0.06 H Absolute Neuts (auto) 4.6 Absolute Nucleated RBC 0.000 Nucleated RBC % (auto) 0.0 Anion Gap 14 Estim Creat Clear Calc 126.5 Estimated GFR > 60 Random Glucose 111 Calcium 9.4 Magnesium 2.3 Total Bilirubin 0.5 AST 24 ALT 25 Alkaline Phosphatase 106 Total Protein 7.4 Albumin 4.2 Microbiology Microbiology Results: Microbiology 04/20/25 02:03 Blood Culture - Preliminary Blood - Venous No growth after 48 hours. 04/20/25 02:06 Blood Culture - Preliminary Blood - Venous No growth after 48 hours. Assessment and Plan (1) Multifocal pneumonia: Status: Acute (2) Anasarca: Status: Acute Plan Patient is a 49-year-old male with a past medical history significant for hypertension and morbid obesity, recently s/p left lateral malleolus fracture treated surgically on April 17 (injury on April 04), who presents did to the ED due to rapidly progressive generalized edema and 47 lb weight gain. New onset CHF with anasarca unclear etiology - pt reports 47 lb weight gain in 3-4 days-unsure of patient's baseline dry weight Lasix switch to 40 mg daily with cardiology input TTE-normal biventricular function - low-salt diet Possible DC tomorrow Likely superimposed multifocal pneumonia Switch to Augmentin and he seems to be hemodynamically stable not hypoxic on room air Left lateral malleolus fracture s/p surgical repair 04/17 Splint change on 04/21/2025 as pt reports discomfort pain meds being adjusted - orthopedics follow up outpatient Hypertension Start spironolactone 25 mg Obesity class II - weight loss encouraged Full code VTE prophylaxis: Lovenox Pt likely medically optimized of drip and on p.o. meds and we will be discharged tomorrow if hemodynamically stable This note is constructed using voice recognition software. While every effort has been made to ensure accuracy, application support lead errors may have been included. Quality Stroke Does the patient have a stroke diagnosis?: No VTE Prior VTE?: No VTE Risk Level:: Medical - moderate - high VTE Device Contraindication: Treatment Not Indicated VTE Drug Contraindication: N/A - Med Ordered
[2025-04-22 15:35] VITALS: BP 134/81; PULSE 80; RESP 20; TEMP 36.4; O2SAT 99
--- NOTE | 2025-04-22 18:29 | PC.NURSE ---
Patient arrived to unit - alert and oriented, conversing. Call [place] within reach, bed alarm on. Positive sensation and movement in right foot, unable to palpate pulse due to dressing, dressing clean, dry and intact.
[2025-04-22 18:30] VITALS: BP 144/90; PULSE 95; RESP 16; TEMP 36.4; O2SAT 97
[2025-04-22 18:59] VITALS: BP 139/80; PULSE 83; RESP 15; TEMP 36.1; O2SAT 99
[2025-04-23 03:09] VITALS: BP 150/83; PULSE 83; RESP 17; TEMP 36.2; O2SAT 98
[2025-04-23] MEDS: oxyCODONE HCl Immed Release 5 MG TABLET PO (05:29)
[2025-04-23 05:48] LABS: MANUAL DIFF FLAG NO
[2025-04-23 05:49] LABS: Hematocrit 40.9 % (42.0-52.0); Hemoglobin 13.6 g/dl (14.0-18.0); Imm Gran Abs Auto 0.05 X10*3/uL (0.00-0.03); Imm Gran Pct Auto 0.6 % (0.0-0.4); Lymphocytes Absolute Auto 2.2 X10*3/uL (1.2-4.9); Mean Corpuscular HGB Conc 33.3 g/dl (31.0-36.0); Mean Corpuscular Hemoglobin 29.3 pg (27.0-33.0); Mean Corpuscular Volume 88.1 fL (80.0-98.0); NRBC Abs Auto 0.000 X10*3/uL (0.0-0.012); NRBC Pct Auto 0.0 /100WBC (0.0-0.2); Platelet Count 422 X10*3/uL (160-400); Red Blood Count 4.64 X10*6/uL (4.60-5.80); White Blood Count 8.1 X10*3/uL (4.8-10.8)
[2025-04-23 06:03] LABS: Alanine Aminotransferase 25 U/L (0-40); Albumin Level 4.1 g/dL (3.5-5.0); Alkaline Phosphatase 104 U/L (39-117); Anion Gap 12 (12-20); Aspartate Amino Transferase 23 U/L (5-37); Blood Urea Nitrogen 20 mg/dL (9-16); Calcium 9.2 mg/dL (8.4-10.2); Carbon Dioxide 31 mmol/L (22-29); Chloride 94 mmol/L (96-108); Creatinine Clr Calc Pharmacy 136.1; Estimated Glomerular Filt Rate > 60; Magnesium 2.5 mg/dL (1.6-2.6); Potassium 3.4 mmol/L (3.3-5.1); Sodium 134 mmol/L (135-145); Total Protein 7.3 g/dL (6.5-8.0)
--- NOTE | 2025-04-23 07:54 | P.DS_ITS ---
DS: Providers Provider Date of Service: 04/23/25 Date of admission: 04/20/25 03:49 Date of discharge: 04/23/25 Primary care physician: Myra Jimenes APRN Consults: 04/20/25 03:50 Consult to Cardiology Routine Consulting Provider: [facility] [place] [facility] Reason for consultation: new onset chf Has provider been notified: No 04/20/25 06:18 Addiction Medicine Provider Routine Consulting Provider: Addiction Covering Reason for consultation: drinking problem 04/20/25 17:11 Consult to Orthopedics Routine Consulting Provider: [facility] [place] [facility] Reason for consultation: Pt with recent left malleolar repair on 04/17 DS: Diagnosis Discharge Diagnosis (1) Multifocal pneumonia: Status: Acute (2) Anasarca: Status: Acute DS: Summary Hospital Course Hospital Course: H&P: Patient is a 49-year-old male with a past medical history significant for hypertension and morbid obesity, recently s/p left lateral malleolus fracture treated surgically on April 17 (injury on April 04), who presented to the ED due to rapidly progressive generalized edema and 47 lb weight gain. Edema involves legs, hands, abdomen. The patient reports that he feels that his skin is going to burst. He also complains of severe abdominal bloating/fullness with decreased appetite and shortness of breath. He reports an intermittent dry cough, hand numbness and decreased urinary output though strong urge to urinate. Last bowel movement was today, no hematochezia. He denies fever, chills, nausea, vomiting. He denies choking or coughing when eating, no swallowing difficulties, adamately refuses MANAGER UTILIZATION REVIEW swallow eval. reports erosions on skin are due to itching the opiates he is taking since surgery. Hospital course: New onset CHF with anasarca unclear etiology, cardiology consulted - pt reports 47 lb weight gain in 3-4 days-unsure of patient's baseline dry weight Lasix switch to 40 mg daily with cardiology input TTE-normal biventricular function - low-salt diet Follow up with PCP outpatient Likely superimposed multifocal pneumonia Switch to Augmentin and he seems to be hemodynamically stable not hypoxic on room air-has 2 more days left to complete 7 days of total antibiotic course Left lateral malleolus fracture s/p surgical repair 04/17 Splint change on 04/21/2025 as pt reports discomfort Nonweightbearing left lower extremity Elevate above heart level on 3 pillows Continue pain management Follow up with Orthopedics in 1 week for x-rays and staple removal Pain management with Tylenol and muscle relaxant-patient did not need any IV pain meds during this hospitalization for few days prior to discharge Hypertension Start spironolactone 25 mg Stop amlodipine -pitting pedal edema, switch to losartan [id number] with outpatient PCP Obesity class II - weight loss encouraged Full code VTE prophylaxis: Lovenox Patient was cleared by PT, nonweightbearing right lower extremity until seen by ortho. This note is constructed using voice recognition software. While every effort has been made to ensure accuracy, neck fitter errors may have been included. Time spent discussing smoking cessation with patient: more than 10 minutes Time Attestation Discharge Coordination Time (in mins): Forty-five minutes Quality: Safe Use of Opioids Does Pt have an Active Cancer Diagnosis on the Problem List?: No Quality: Stroke Does the patient have a stroke diagnosis?: No Physical Exam Vital Signs: Vital Signs: Last Vital Signs Temp 97.2 F 04/23/25 03:09 Pulse 83 04/23/25 03:09 Resp 17 04/23/25 03:09 BP 150/83 H 04/23/25 03:09 Pulse Ox 98 04/23/25 03:09 O2 Del Method Room Air 04/23/25 03:09 BMI result Body Mass Index 36.8 GENERAL APPEARANCE: in no acute distress, pleasant. HEART: no murmurs, regular rate and rhythm. LUNGS: clear to auscultation bilaterally. ABDOMEN: soft, nontender. Mildly distended. EXTREMITIES: Left foot and leg in cast. NEUROLOGIC: No gross deficits, AAO X 3 DS: Data Data Completed and Pending Labs on day of discharge: Laboratory Results - last 24 hr 04/23/25 05:22 WBC 8.1 RBC 4.64 Hgb 13.6 L Hct 40.9 L MCV 88.1 MCH 29.3 MCHC 33.3 RDW 12.6 Plt Count 422 H MPV 10.6 Immature Gran % (Auto) 0.6 H Neut % (Auto) 57.4 Lymph % (Auto) 27.4 [place] % (Auto) 11.3 H Eos % (Auto) 2.9 Baso % (Auto) 0.4 Lymph # (Auto) 2.2 [place] # (Auto) 0.9 Eos # (Auto) 0.2 Baso # (Auto) 0.0 Abs Immat Gran (auto) 0.05 H Absolute Neuts (auto) 4.6 Absolute Nucleated RBC 0.000 Nucleated RBC % (auto) 0.0 Sodium 134 L Potassium 3.4 Chloride 94 L Carbon Dioxide 31 H Anion Gap 12 BUN 20 H Creatinine 0.92 Estim Creat Clear Calc 136.1 Estimated GFR > 60 Random Glucose 99 Calcium 9.2 Magnesium 2.5 Total Bilirubin 0.5 AST 23 ALT 25 Alkaline Phosphatase 104 Total Protein 7.3 Albumin 4.1 Preliminary micro results at discharge 04/20/25 02:03 Blood Culture - Preliminary Blood - Venous No growth after 48 hours. 04/20/25 02:06 Blood Culture - Preliminary Blood - Venous No growth after 48 hours. Discharge Plan Discharge Anticipated Discharge Date/Time: 04/23/25 11:50 Patient Disposition: Home, Self-Care Discharge Diagnosis: New onset CHF with anasarca unclear etiology, possibly superimposed multifocal pneumonia Referrals: Reina Aguirre PA-C [Physician Bobj Developer, Orthopedics] - 1 Week Referral Note: 04/29/25 13:00 [facility] [place] [facility] Reina Aguirre PA-C Kinch, Linda M, MD [Physician, Addiction Medicine] - 1 Week Cade Zamora MD [Physician, Cardiology] - 1 Week Physician,Mary Jo J [Physician, Medical] - 1 Week Discharge Medications: New furosemide 40 mg Tablet 40 mg PO BID@0800,1400 30 Days Qty: 120 3RF Protocol: Hold for SBP< HOLD for SBP < : 90 spironolactone 25 mg Tablet 25 mg PO DAILY 30 Days Qty: 30 3RF Protocol: Hold for SBP< HOLD for SBP < : 90 amoxicillin-pot clavulanate 875-125 mg Tablet 1 tab PO Q12H 2 Days Qty: 4 0RF Antacid Ext Str (calcium carb) 300 mg (750 mg) Tablet,Chewable 2.5 tab PO Q4H PRN (Reason: Heartburn) 30 Days Qty: 30 0RF magnesium hydroxide [Milk of Magnesia] 400 mg/5 mL Suspension 30 ml PO DAILY PRN (Reason: Constipation) 30 Days Qty: 3000 0RF melatonin 3 mg Tablet 6 mg PO BEDTIME PRN (Reason: Insomnia) Qty: 30 0RF losartan 25 mg tablet 25 mg PO DAILY 30 Days Qty: 30 3RF Continued oxycodone 5 mg tablet 5 mg PO Q4-6H PRN (Reason: post operative pain) Qty: 20 0RF Rx Instructions: Partial Fill upon patient request. acetaminophen 325 mg Tablet 650 mg PO Q6H PRN (Reason: Pain) diphenhydramine HCl 25 mg Tablet 25 mg PO BEDTIME PRN (Reason: Insomnia) tadalafil 20 mg tablet 20 mg PO DAILY PRN (Reason: intercourse) ibuprofen 800 mg tablet 800 mg PO Q8H PRN (Reason: pain) 30 Days Qty: 90 0RF Discontinued amlodipine 10 mg tablet 10 mg PO DAILY Discharge Orders: Discharge Order (Routine); Ordered 04/23/25 Ordered By: Zenobia Mccarty Diet: Low salt diet Activity on Discharge: Walk with crutches Stand Alone Forms: Patient Portal Discharge page Print Language: Ug[place] Activity Restrictions/Additional Instructions: Orthopedic Splinting/Casting Injury #1: Side: left Lower extremity injury location: ankle Lower extremity immobilizer: posterior splint Nonweightbearing left lower extremity Elevate above heart level on 3 pillows Continue pain management Follow up with Orthopedics in 1 week for x-rays and staple removal Care Plan Goals: Follow up with PCP Follow up with Cardiology outpatient Follow up with orthopedics within a week Stop amlodipine next refrain from alcohol See GI for fatty liver disease See Addiction Medicine for any helps a that is available Stop amlodipine-can lead to pitting pedal edema-known side effect explained to the patient in detail We are trialing him on losartan instead Blood pressure titration with PCP follow up Health Concerns: See above Plan of Treatment: See above Assessment: See above Patient Instructions: Low-Sodium Diet (DC)
[2025-04-23 08:00] VITALS: BP 133/80; PULSE 75; RESP 16; TEMP 36; O2SAT 93
[2025-04-23] MEDS: 0.9 % Sodium Chloride Flush 3 ML SYRINGE IVFLUSH (08:30)
--- NOTE | 2025-04-23 10:47 | MHC.SL.SWA ---
Speech Pathologist Impression: Oropharyngeal swallow WFL Risk of Aspiration Due to: Reported hx of difficulty with PO intake Recent aspiration PNA Dysphasia Diet Status: Liquid Consistency and Strategies for Safe Swallow: Liquid Intake Recommendation: Thin Liquid Intake Strategies: Solid Food Consistency: Dietary Recommendations: Regular Additional Modifications to Solid Foods: Oral Medication Intake: Whole with Liquid Please contact the pharmacy regarding appropriate crushable or liquid drug formulations that are available whenever modified delivery is recommended. Compensatory Strategies and Precautions to be Taken for Safe Swallow: Sitting Upright (90 deg) Small Bites and Sips Alternate Liquids/Solids Rate of Ingestion Change Supervision While Eating and Drinking for Safe Swallow: None Needed Foods to Avoid: Swallowing Recommended Treatments: Compens. Strategy Educat. Recommendation for Speech: Inpatient Speech Therapy Comment: 04/23/25 Pt seen for followup, pt denied persisting dysphagia. LAMP WIRER reviewed [facility] diet and overt s/s of aspiration to be aware of, LAMP WIRER encouraged pt to contact PCP if dysphagia continues or worsens. Pt in agreement with [facility] diet, verbalized understanding of overt s/s of aspiration. Pt expressed that he wants to go home and plans leave AMA if d/c'd to rehab. Frequency/Duration: [facility] pt followup with PCP to obtain LAMP WIRER referral if dysphagia persists or worsens Date Range for Service Req: Timeline to reassess: Living Coach Clinican/Clinical Fellow: No Supervisory Statement: I have reviewed and agree with the student/clinical fellow's documentation: N/A Speech Language Pathologist: Debo Collado M.S., CCC-LAMP WIRER
--- NOTE | 2025-04-23 12:05 | MHC.CM.PN ---
Patient medically cleared for dc home, no services. Girlfriend to transport.
--- NOTE | 2025-04-23 16:14 | MHC.RECOVRN ---
Late entry: Consult received by Addiction Medicine for AUD. Attempted to meet pt at approximately 1pm to to offer education, support, and resources however pt stated he was not interested at this time because I'm heading out of here . Pt was offered ACS team contact info in the event he may need it in the future to which he declined. Recovery assessment was not completed
== END 2025-04-23 13:17 | disposition home or self-care (01) | DRG 194 ==
LOC: HO.ED 04-20 03:17 → HO.EDOVER 04-20 03:53 → HO.IMC 04-20 04:37 → HO.S3 04-22 17:51
PROVIDERS: Student in an Organized Health Care Education/Training Program; Admitting Provider Physician Assistant; Emergency Provider Emergency Medicine; PCP Nurse Practitioner; Visit Provider Student in an Organized Health Care Education/Training Program
DX: I11.0 Hypertensive heart disease with heart failure (principal); J18.9 Pneumonia, unspecified organism; K76.0 Fatty (change of) liver, not elsewhere classified; I50.9 Heart failure, unspecified; E66.01 Morbid (severe) obesity due to excess calories; Z68.36 Body mass index [BMI] 36.0-36.9, adult; E66.812 Obesity, class 2; Z71.3 Dietary counseling and surveillance; Z20.822 Contact with and (suspected) exposure to COVID-19; Z79.899 Other long term (current) drug therapy
CPT/HCPCS: 36415; 71045; 71275; 76705; 80048; 80053; 80307; 81003; 83605; 83735; 83880; 84484; 85025; 87040; 87637; 92526; 92610; 93005; 93306; 97161; 97166; 99285; J0696; J1171; J1200; J1271; J1650; J1938; J2270; Q9957; Q9967

== ENCOUNTER → 2025-04-19 22:32 | Outpatient (BNV) | payer OTHER, SELFPAY | PROVIDERS: Admitting Provider Physician Assistant; Emergency Provider Emergency Medicine; Visit Provider Internal Medicine | DX: I49.3 Ventricular premature depolarization (principal) | CPT/HCPCS: 93010 ==

== ENCOUNTER → 2025-04-19 22:32 | Outpatient (BNV) | payer OTHER, SELFPAY | PROVIDERS: Emergency Provider Emergency Medicine; Visit Provider Student in an Organized Health Care Education/Training Program | DX: R91.8 Other nonspecific abnormal finding of lung field (principal) | CPT/HCPCS: 71045 ==

== ENCOUNTER → 2025-04-20 00:38 | Outpatient (BNV) | payer OTHER, SELFPAY | PROVIDERS: Emergency Provider Emergency Medicine; Visit Provider Student in an Organized Health Care Education/Training Program | DX: J18.9 Pneumonia, unspecified organism (principal) | CPT/HCPCS: 71275 ==

== ENCOUNTER 2025-04-20 03:49 | Outpatient (BNV) | payer OTHER, SELFPAY | END 2025-04-22 07:00 | PROVIDERS: Admitting Provider Physician Assistant; Emergency Provider Emergency Medicine; PCP Nurse Practitioner; Visit Provider Radiology Diagnostic Radiology | DX: K76.0 Fatty (change of) liver, not elsewhere classified (principal) | CPT/HCPCS: 76705 ==

== ENCOUNTER 2025-04-20 03:49 | Outpatient (BNV) | payer OTHER, SELFPAY | END 2025-04-21 07:00 | PROVIDERS: Admitting Provider Physician Assistant; Emergency Provider Emergency Medicine; Visit Provider Internal Medicine Cardiovascular Disease | DX: I50.9 Heart failure, unspecified (principal) | CPT/HCPCS: 93306 ==

== ENCOUNTER → 2025-04-20 03:49 | Outpatient (BNV) | payer OTHER, SELFPAY | PROVIDERS: Admitting Provider Physician Assistant; Emergency Provider Emergency Medicine; Visit Provider Internal Medicine | DX: R60.1 Generalized edema (principal) | CPT/HCPCS: 99223; 99233 ==

== ENCOUNTER → 2025-04-20 03:49 | Outpatient (BNV) | payer OTHER, SELFPAY | PROVIDERS: Admitting Provider Physician Assistant; Emergency Provider Emergency Medicine; Visit Provider Student in an Organized Health Care Education/Training Program | DX: J18.8 Other pneumonia, unspecified organism (principal); R60.1 Generalized edema | CPT/HCPCS: 99233 ==

== ENCOUNTER → 2025-04-20 03:49 | Outpatient (BNV) | payer OTHER, SELFPAY | PROVIDERS: Admitting Provider Physician Assistant; Emergency Provider Emergency Medicine; Visit Provider Physician Assistant | DX: S82.832A Other fracture of upper and lower end of left fibula, initial encounter for closed fracture (principal) | CPT/HCPCS: 29515; 99024; 99499 ==

== ENCOUNTER 2025-04-28 13:59 | Outpatient (AMB) | payer OTHER, SELFPAY ==
--- NOTE | 2025-04-28 14:05 | A.OFFVIS_ITS ---
Intake Visit Reasons: PO - Left ankle ORIF 04/17/25 Intake Note: Irvin is a 49 year old male who presents today for a post operative appointment status post Left ankle ORIF done on 04/17/[address] Serrano. Patient reports ?he is doing well. Having pain on the lateral side of his ankle, but has been icing. Allergies fentanyl Allergy (Intermediate, Verified 04/28/25 14:10) hives propofol Allergy (Intermediate, Verified 04/28/25 14:10) Itching, Rash acetaminophen Adverse Reaction (Intermediate, Verified 04/28/25 14:10) Liver damage opiates Adverse Reaction (Intermediate, Uncoded 04/17/25 12:50) Itching HPI HPI PO - Left ankle ORIF 04/17/25: Details: Mr. Heather tobias is a 49-year-old male who presents to the office today for routine follow-up status post left ankle ORIF performed on 04/17/[address] Serrano. Patient states overall he has been doing well. He reports mild pain in which he has been taking the prescribed oxycodone which has been helping. He is looking for a refill of this medication while in the office today. No additional complaints. [facility] Medical History LFT elevation Renal calculi HTN (hypertension) Lumbar degenerative disc disease Surgical History Hx of eye surgery History of surgery on right wrist History of amputation of finger Hx of repair of rotator cuff Hx of right knee surgery Social History Household Members: Significant Other Housing: Apartment Are you a primary aged or disabled care worker to a significant other at home: No Do you presently have visiting nurse or other home services: No Alcohol intake: former Patient Tobacco Use Status: Never used Tobacco e-Cigarette/Vaping Use: Never Used service: No Current occupational status: employed 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 Mild erythema surrounding the incision site likely from irritation status post CHF exacerbation. No active drainage. No signs of current infection. [place] intact. Able to slightly dorsiflex and plantar flex. Sensation intact. Pedal pulse intact. Psych Appearance: grossly normal Mental Status: mental status grossly normal Attitude: cooperative Office Procedures Casting/Splints [id number] Leg splint application Procedure code (CPT) selection complete Assessment & Plan Assessment & Plan (1) Status post ORIF of fracture of ankle: Code(s): Z98.890 - Other specified postprocedural states; Z87.81 - Personal history of (healed) traumatic fracture Category: Surgical Plan Mr. Heather tobias is a 49-year-old male who presents to the office today for routine follow-up status post left ankle ORIF performed on 04/17/[address] Serrano. Patient states overall he has been doing well. He reports mild pain in which he has been taking the prescribed oxycodone which has been helping. He is looking for a refill of this medication while in the office today. No additional complaints. While in the office today, wound check was performed. There is no infection noted at this time. However, patient was recently admitted for a CHF exacerbation on 04/19/2025. The left ankle does have some mild erythema around the incision site likely from fluid overload in this area during his hospitalization. Skin remains intact. He was placed back into a posterior sp lint and instructed to follow up in 1 week for x-rays and anticipation of staple removal and transition to a cast. He will remain nonweightbearing with the use of crutches. He will follow up in 1 week, sooner if needed. Refill of oxycodone 5 mg to be taken p.o. q.4-6 hours PRN pain was sent to the pharmacy. Coding Level of Care Code Global (15328) Diagnoses Status post ORIF of fracture of ankle Z98.890; Z87.81 CPT Codes Splint - CPT: 64897-Rxfgu Leg splint application ([id number])
--- OUTSIDE RECORDS SUMMARY | 2025-04-28 17:25 | XMS_ITS | Clinical Summary ---
Author Organization [employer] Address [address] [place] [address] 7t [place] [address] Care Team Providers Care Cut In Worker Name Role Phone Nae Jimenes JEANIE Primary Care Provider +1 -[phone] Allergies Active Allergy Reactions Criticality Noted Date [...] Encounters Date Type Department Care Team Description 04/26/2025 Travel 04/23/2025 Telephone [facility] Information Management [address] [place] [address] [facility] hospital discharge, obtain hospital records 04/22/2025 Orders Only [facility] Information [facility] [address] [place] [address] [facility] 04/14/2025 Telephone [facility] [address] [place] [address] [place], [place] [facility] OV notes 04/11/2025 11:00 AM EST Office Visit [address] [address] [place], [place] [facility] Closed extra-articular fracture of distal end of left tibia, sequela (Primary Dx); Closed fracture of distal end of left fibula, unspecified fracture morphology, sequela; Closed nondisplaced fracture of first metatarsal bone of left foot, sequela; Primary hypertension; Erectile dysfunction, unspecified erectile dysfunction type; Acute cough; Alcohol use disorder 04/11/2025 Telephone [facility] [address] [place] [address] [place], [place] [facility] 04/11/2025 Orders Only [facility] Information [facility] [address] [place] [address] [facility] 04/11/2025 Telephone [facility] [address] [place] [address] [place], [place] [facility] Prior Authorization (suzette) 04/08/2025 Travel 02/27/2025 Refill [facility] [address] [place] [address] [place], [place] [facility] Primary hypertension 02/25/[address] [address] [place], [place], [employer] Erectile dysfunction, unspecified erectile dysfunction type from [...] EST Travel History Travel Start Travel End [place] 05/29/2024 04/04/2025 Last Filed Vital Signs Vital [...] 04/11/2025 11:23 AM EST Plan of Treatment Upcoming Encounters Date Type Department Care Team (Late st Contact Info) Description 05/03/2025 10:00 AM EST Office Visit [facility] [address] [place] [address] [place], [place], [facility] [address] [place] [address] Health Maintenance Due Date Last Done Comments [...] Procedure Name Priority Date/Time Associated Diagnosis Comments US ABDOMEN Routine 04/22/2025 XR KNEE 4 OR MORE VIEWS LEFT Routine 04/06/2025 XR KNEE 1-2 VIEWS BILATERAL Routine 04/06/2025 XR ANKLE 3+ VIEWS LEFT Routine 04/06/2025 LIPID PANEL, STANDARD Routine 10/11/2023 Screening for lipid disorders LAB COLOGUARD COLON CANCER SCREEN Routine 09/07/2023 Colon cancer screening from Last 3 Months or Most Recently Relevant to Health Maintenance Results * US Abdomen (04/22/2025) Anatomical Region Laterality Modality [facility] Final R esult * XR KNEE 4 OR MORE VIEWS LEFT (04/06/2025) Anatomical Region Laterality Modality Radiographic Elizabeth ging [facility] IMG XR PROCEDURES Final R esult * XR Knee 1-2 Views Bilateral (04/06/2025) Anatomical Region Laterality Modality Lower Extremities, Knee Bilateral Radiogra phic Imaging [facility] IMG XR PROCEDURES Final R esult * XR Ankle 3+ Views Left (04/06/2025) Anatomical Region Laterality Modality Lower Extremities, Ankle Left Radiogr aphic Imaging [facility] IMG XR PROCEDURES Final R esult * Lipid Panel, Standard (10/11/2023) Blood Venous blood specimen / Unknown [facility] LAB BLOOD ORDERABLES Catarina l Result EXTERNAL LAB * Cologuard?? colon cancer screening (09/07/2023) Stool [facility] LAB MOLECULAR DIAGNOSTICS ORDERABLES Final Result EXTERNAL LAB from Last 3 Months or Most Recently Relevant to Health Maintenance Insurance [facility] Care Teams Cut In Worker Relationship Specialty Start Date End Date Nae Jimenes [facility] [address] [place], [place] PCP - General Family Medicine 08/12/22
--- OUTSIDE RECORDS SUMMARY | 2025-04-28 17:25 | XMS_ITS | Encounter Summary ---
Author Organization [employer] Address 75 [facility] 7t [place] [address] Care Team Providers Care Top Lift Cutter Name Role Phone [facility] Primary Care Provider [phone] [phone] Reason for Visit * Reason Comments Med Refill Encounter Details Date Type Department Care Team ([facility] Contact Info) Description 02/25/2025 Refill [facility] [address] [place] [address] [facility] [address] [place] [address] Erectile dysfunction, unspecified erectile dysfunction type Social [...] EST Travel History Travel Start Travel End [place] 05/29/2024 04/04/2025 documented as of this encounter Plan of Treatment Upcoming Encounters Date Type Department Care Team (Late st Contact Info) Description 05/03/2025 10:00 AM EST Office Visit Giov[facility] [address] [place] [address] [facility] [address] [place] [address] documented as of this encounter Visit Diagnoses Diagnosis Erectile dysfunction, unspecified erectile dysfunction type documented in this encounter Care Teams Top Lift Cutter Relationship Specialty Start Date End Date [facility] [address] [place] [address] PCP - General Family Medicine 08/12/22 documented as of this encounter
--- OUTSIDE RECORDS SUMMARY | 2025-04-28 17:25 | XMS_ITS | Encounter Summary ---
Author Organization [employer] Address [address] [facility] 7t [place] [address] Care Team Providers Care Ada Accommodation Consultant Name Role Phone Jaleesaflower Nae [facility] Primary Care Provider +1 [phone] Reason for Visit * Reason Onset Date Comments hospital discharge, obtain hospital records 03/30 Encounter Details Date Type Department Care Team ([facility] Contact Info) Description 04/23/2025 Telephone [facility] Information Management [address] [place] [address] [facility] [address] [place] [address] hospital discharge, obtain hospital records Social History Tobacco Use Types Packs/Day Years [...] EST Travel History Travel Start Travel End [place] 05/29/2024 04/04/2025 documented as of this encounter Miscellaneous Notes * Telephone Encounter - Delia Acuña LPN - 04/23/2025 3:37 PM EST Call to patient to discuss recent admission/hospitalization and offer office visit. Date of hospitalization: 04/20/25 Discharge date: 04/23/25 Hospital: [facility] Records on file: yes Discharge diagnosis: new onset CHF, anasarca, multifocal pneumonia Patient described events as: edema, 47 lb weight gain, abdominal bloating, shortness of breath Lingering concerns/symptoms for provider: Pt's weight is now 258 lbs Medication changes: losartan, furosemide, spironolactone, amoxicillin Follow-up scheduled: 05/03/25 Counseled on reasons for urgent evaluation while awaiting office visit Flow sheet completed. * Telephone Encounter - Ritika Merritt - 04/23/2025 2:57 PM EST Patient called stating he was admitted to [facility] on Monday (04/19/25) and was discharged today (04/23/25). Patient states he was 311 lb when he was admitted and was 258 lb when he was discharged. Patient states they did EKG and lab work while he was there and switched his Amlodipine to Losartan 25 mg and added Furosemide, Spironolactone, and Amoxicillin. Offered patient next available appointment but patient declined stating he only wants to go to [facility]. Patient states he would like a call back to discuss his discharge paperwork further. * Telephone Encounter - Yolanda Stokes LPN - 04/23/2025 2:02 PM EST Patient discharged today, follow up 04/25/25. documented in this encounter Plan of Treatment Upcoming Encounters Date Type Department Care Team (Late st Contact Info) Description 05/03/2025 10:00 AM EST Office Visit [place] [facility] 70 [facility] [place] [address] [facility] 70 [facility] [place] [address] documented as of this encounter Visit Diagnoses Not on filedocumented in this encounter Care Teams Ada Accommodation Consultant Relationship Specialty Start Date End Date [facility] 70 [facility] [place] [address] PCP - General Family Medicine 08/12/22 documented as of this encounter
--- OUTSIDE RECORDS SUMMARY | 2025-04-28 17:25 | XMS_ITS | Encounter Summary ---
Author Organization [employer] Address [address] [facility] 7t [place] [address] Care Team Providers Care Inspector Tubes Name Role Phone Nae Jimenes [facility] Primary Care Provider [phone] [phone] Encounter Details Date Type Department Care Team ([facility] st Contact Info) Description 04/11/2025 Orders Only [place] [facility] Information Management [address] [place] [address] [facility] [address] [place] [address] Social History Tobacco Use Types Packs/Day Years [...] the past 12 months, has t he [employer], [employer], oil or water [employer] threatened to shut off services in your home? No 10/11/2023 Depression Answer Date Recorded Patient Health Questionnaire-2 Score 0 10/11/2023 Sex and Gender Information Value Date Recorded Sex Assigned at Male 07/20/2022 2:39 PM EST Legal Sex Male 2:37 PM EST Gender Identity Male 07/20/2022 2:39 PM EST Sexual Orientation Straight 07/20/2022 2: 39 PM EST Travel History Travel Start Travel [facility] 05/29/2024 04/04/2025 documented as of this encounter Plan of Treatment Upcoming Encounters Date Type Department Care Team (Late st Contact Info) Description 05/03/2025 10:00 AM EST Office Visit [place] [facility] [address] [place] [address] [facility] [address] [place] [address] documented as of this encounter Procedures Procedure Name Priority Date/Time Associated Diagnosis Comments XR KNEE 4 OR MORE VIEWS LEFT Routine 04/06/2025 XR KNEE 1-2 VIEWS BILATERAL Routine 04/06/2025 XR ANKLE 3+ VIEWS LEFT Routine 04/06/2025 documented in this encounter Results * XR KNEE 4 OR MORE VIEWS LEFT (04/06/2025) Anatomical Region Laterality Modality Radiographic Elizabeth ging [facility] IMG XR PROCEDURES Final R esult * XR Knee 1-2 Views Bilateral (04/06/2025) Anatomical Region Laterality Modality Lower Extremities, Knee Bilateral Radiogra phic Imaging [facility] IMG XR PROCEDURES Final R esult * XR Ankle 3+ Views Left (04/06/2025) Anatomical Region Laterality Modality Lower Extremities, Ankle Left Radiogr aphic Imaging [facility] IMG XR PROCEDURES Final R esult documented in this encounter Visit Diagnoses Not on filedocumented in this encounter Care Teams Inspector Tubes Relationship Specialty Start Date End Date [facility] [address] [place] [address] PCP - General Family Medicine 08/12/22 documented as of this encounter
--- OUTSIDE RECORDS SUMMARY | 2025-04-28 17:25 | XMS_ITS | Encounter Summary ---
Author Organization [employer] Address [address] [facility] 7t [place] [address] Care Team Providers Care Coater Hand Name Role Phone Nae Jimenes AUTOMATIC GRINDING MACHINE OPERATOR Primary Care Provider [phone] [phone] Encounter Details Date Type Department Care Team (Latest Contact Info) Description 04/26/2025 Travel Social History Tobacco Use Types Packs/Day Years [...] EST Travel History Travel Start Travel End [place] 05/29/2024 04/04/2025 documented as of this encounter Plan of Treatment Upcoming Encounters Date Type Department Care Team (Late st Contact Info) Description 05/03/2025 10:00 AM EST Office Visit [facility] [address] [place] [address] Nae Jimenes FNP [address] [place] [address] documented as of this encounter Visit Diagnoses Not on filedocumented in this encounter Care Teams Coater Hand Relationship Specialty Start Date End Date Nae Jimenes FNP [address] [place] [address] PCP - General Family Medicine 08/12/22 documented as of this encounter
--- OUTSIDE RECORDS SUMMARY | 2025-04-28 17:25 | XMS_ITS | Encounter Summary ---
Author Organization [employer] Address 75 [facility] 7t [place] [address] Care Team Providers Care Lead Refinery Supervisor Name Role Phone Nae Jimenes [facility] Primary Care Provider [phone] [phone] Encounter Details Date Type Department Care Team ([facility] st Contact Info) Description 04/22/2025 Orders Only [place] [facility] Information Management [address] [place] [address] [facility] 70 [place] [address] Social History Tobacco Use Types Packs/Day Years [...] the past 12 months, has t he [employer], [employer], oil or water [employer] threatened to shut off services in your home? No 10/11/2023 Depression Answer Date Recorded Patient Health Questionnaire-2 Score 0 10/11/2023 Sex and Gender Information Value Date Recorded Sex Assigned at Male 07/20/2022 2:39 PM EST Legal Sex Male 2:37 PM EST Gender Identity Male 07/20/2022 2:39 PM EST Sexual Orientation Straight 07/20/2022 2: 39 PM EST Travel History Travel Start Travel End [place] 05/29/2024 04/04/2025 documented as of this encounter Plan of Treatment Upcoming Encounters Date Type Department Care Team (Late st Contact Info) Description 05/03/2025 10:00 AM EST Office Visit Giovana [facility] [address] [place] [address] [place], [place] [facility] [address] [place] [address] documented as of this encounter Procedures Procedure Name Priority Date/Time Associated Diagnosis Comments US ABDOMEN Routine 04/22/2025 documented in this encounter Results * US Abdomen (04/22/2025) Anatomical Region Laterality Modality Abdomen Ultrasound [facility] US PROCEDURES Final R esult documented in this encounter Visit Diagnoses Not on filedocumented in this encounter Care Teams Lead Refinery Supervisor Relationship Specialty Start Date End Date [place], [place] [facility] 70 [place] [address] PCP - General Family Medicine 08/12/22 documented as of this encounter
== END 2025-04-28 14:56 | disposition home or self-care (01) ==
LOC: HO.HOS 13:59
PROVIDERS: PCP Nurse Practitioner; Visit Provider Physician Assistant
DX: Z87.81 Personal history of (healed) traumatic fracture (principal); Z98.890 Other specified postprocedural states
CPT/HCPCS: 29515; 99024

== ENCOUNTER → 2025-04-28 13:59 | Outpatient (BNVA) | payer OTHER, SELFPAY | PROVIDERS: PCP Nurse Practitioner; Visit Provider Physician Assistant | DX: S82.832D Other fracture of upper and lower end of left fibula, subsequent encounter for closed fracture with routine healing (principal) | CPT/HCPCS: 29515; 99212 ==

== ENCOUNTER 2025-05-05 07:18 | Outpatient (REF) | payer OTHER, SELFPAY ==
--- NOTE | ~2025-05-05 | XR_ITS ---
EXAMINATION: XR ANKLE, left three-view CLINICAL INFORMATION: M25.579 - Pain in unspecified ankle and joints of unspecified foot COMPARISON: 04/08/2025 TECHNIQUE: AP, lateral, and mortise views lower extremity joint, ankle. FINDINGS: Ankle mortise is congruent. There is no widening of the syndesmosis. Since prior, lateral plate and screws have been placed across a distal fibular fracture. Skin von are present lateral to the aforementioned. Hardware appears intact with anatomic positioning. Stable small fragment is present inferior to medial malleolus. Talar dome is intact. There are no calcaneal enthesophyte(s). XR/XR ankle LT min 3V IMPRESSION: Post ORIF lateral malleolar fracture. Previous step-off has been reduced. Unchanged medial malleolar fragment. Electronically signed by: Dino Medeiros MD 05/05/2025 02:20 PM MARTÍN
--- OUTSIDE RECORDS SUMMARY | 2025-05-05 07:22 | XMS_ITS | Encounter Summary ---
Author Organization [employer] Address 75 [facility] 7t [place] [address] Care Team Providers Care Html Developer Name Role Phone Nae Jimenes [facility] Primary Care Provider [phone] [phone] Encounter Details Date Type Department Care Team ([facility] st Contact Info) Description 04/11/2025 Orders Only [place] [facility] Information Management [address] [place] [address] [facility] 70 [place] [address] Social History Tobacco Use Types Packs/Day Years [...] the past 12 months, has t he [employer], [employer], oil or water [email or web address] threatened to shut off services in your [...] Care Team (Late st Contact Info) Description 05/08/2025 11:40 AM EST Office Visit Giovana [facility] 70 [place] [address] [facility] 70 [place] [address] documented as of this encounter Procedures Procedure Name Priority Date/Time Associated Diagnosis Comments XR KNEE 4 OR MORE VIEWS LEFT Routine 04/06/2025 XR KNEE 1-2 VIEWS BILATERAL Routine 04/06/2025 XR ANKLE 3+ VIEWS LEFT Routine 04/06/2025 documented in this encounter Results * XR KNEE 4 OR MORE VIEWS LEFT (04/06/2025) Anatomical Region Laterality Modality Radiographic Elizabeth ging [facility] IMG XR PROCEDURES Final R esult * XR Knee 1-2 Views Bilateral (04/06/2025) Anatomical Region Laterality Modality Lower Extremities, Knee Bilateral Radiogra phic Imaging [facility] IMG XR PROCEDURES Final R esult * XR Ankle 3+ Views Left (04/06/2025) Anatomical Region Laterality Modality Lower Extremities, Ankle Left Radiogr aphic Imaging [facility] IMG XR PROCEDURES Final R esult documented in this encounter Visit Diagnoses Not on filedocumented in this encounter Care Teams Html Developer Relationship Specialty Start Date End Date [facility] 70 [place] [address] PCP - General Family Medicine 08/12/22 documented as of this encounter
--- OUTSIDE RECORDS SUMMARY | 2025-05-05 07:22 | XMS_ITS | Encounter Summary ---
Author Organization [employer] Address 75 [facility] 7t [place] [address] Care Team Providers Care Sed Special Education Teacher Name Role Phone [facility] Primary Care Provider [phone] [phone] Reason for Visit * Reason Comments Med Refill Encounter Details Date Type Department Care Team ([facility] Contact Info) Description 02/25/2025 Refill Giovana [facility] [address] [place] [address] [facility] 70 [place] [address] Erectile dysfunction, unspecified erectile dysfunction type Social [...] 05/08/2025 11:40 AM EST Office Visit Giovana [facility] [address] [place] [address] [facility] NaeJEANIE [address] [place] [address] documented as of this encounter Visit Diagnoses Diagnosis Erectile dysfunction, unspecified erectile dysfunction type documented in this encounter Care Teams Sed Special Education Teacher Relationship Specialty Start Date End Date [facility] Nae [facility] 70 [place] [address] PCP - General Family Medicine 08/12/22 documented as of this encounter
--- OUTSIDE RECORDS SUMMARY | 2025-05-05 07:22 | XMS_ITS | Clinical Summary ---
Author Organization [facility] Address [address] [place] [address] Phone Care Team Providers Care Pack Worker Supervisor Name Role Phone Shira Paz MD Primary [...] 2:10 PM EDT [facility] [address] [place] [address] Ute aBin MD Ectasia of cornea, right (Primary Dx) [...] 11:00 AM EST Office Visit [facility] [address] [place] [address] Doroteo Connor MD [address] [facility], [address] [place] [address] [email or web address] 08/18/2025 3:00 PM EDT Office Visit [facility] [address] [place] [address] Juju Keating OD [address] [facility], [address] [place] [address] [email or web address] 08/18/2025 3:30 PM EDT Office Visit [facility] [address] [facility] [address] [place] [address] Ute Bain MD [address] [facility], [address] [place] [address] [email or web address] Health Maintenance Due Date Last Done [...] S/p corneal collagen crosslinking overall stable us Uet Holbrook MD OPHTHALMOLOGY MARILIN Padilla Final Result * (ABNORMAL) Lipid panel (10/11/2023 11:05 AM EDT) HDL 69 mg/dL [facility] Comment: Interpretation <40 mg/dL: Low HDL cholesterol (major risk factor for CHD) Greater than or equal to 60 mg/dL: High HDL cholesterol ( negative risk factor for CHD) HDL - cholesterol is affected by a number of factors, e.g. smoking, excerise, hormones, sex and age. CHOLESTEROL 202 0 - 240 mg/dL [facility] TRIGLYCERIDES 113 30 - 160 mg/dL [facility] LDL 110 50 - 129 mg/dL [facility] Comment: LDL levels in terms of risk for coronary heart disease: <100 mg/dL: Optimal 100-129 mg/dL: Near or above optimal 130-159 mg/dL: Borderline high 160-189 mg/dL: High >190 mg/dL: Very High CARDIAC RISK RATIO 2.9(L) 3.4 - 5.0 [facility] Blood 10/11/2023 11:0 5 AM EDT 10/11/2023 11:09 AM EDT Nae Jimenes DIRECTOR ADVERTISING LAB BLOOD BKR ORDERABL ES Final Result [facility] [address] [place] [address] from Last 3 Months or Most Recently Relevant to Health Maintenance Insurance [employer] DIRECT [employer] DIRECT [employer] DIRECT DIRECT [employer] DIRECT Care Teams Pack Worker Supervisor Relationship Specialty Start Date End Date Shira Paz MD [address] [place] [address] [email or web address] PCP - General Family Medicine 06/12/24 Additional Source Comments The information contained in this document represents components of the legal health record. It is not the complete legal health record.[facility]
--- OUTSIDE RECORDS SUMMARY | 2025-05-05 07:22 | XMS_ITS | Encounter Summary ---
Author Organization [employer] Address 75 [facility] 7t [place] [address] Care Team Providers Care Territory Sales Consultant Name Role Phone Nae Jimenes [facility] Primary Care Provider [phone] [phone] Encounter Details Date Type Department Care Team ([facility] st Contact Info) Description 04/22/2025 Orders Only [place] [facility] Information Management [address] [place] [address] [facility] 70 [place] [address] Social History Tobacco Use Types Packs/Day Years [...] the past 12 months, has t he [employer], [employer], oil or water company threatened to shut [...] 05/08/2025 11:40 AM EST Office Visit [facility] 70 [place] [address] [facility] 70 [place] [address] documented as of this encounter Procedures Procedure Name Priority Date/Time Associated Diagnosis Comments US ABDOMEN Routine 04/22/2025 documented in this encounter Results * US Abdomen (04/22/2025) Anatomical Region Laterality Modality Abdomen Ultrasound us [facility] IM US PROCEDURES Final R esult documented in this encounter Visit Diagnoses Not on filedocumented in this encounter Care Teams Territory Sales Consultant Relationship Specialty Start Date End Date Nae Jimenes FNP [address] [place] [address] PCP - General Family Medicine 08/12/22 documented as of this encounter
--- OUTSIDE RECORDS SUMMARY | 2025-05-05 07:22 | XMS_ITS | Encounter Summary ---
Author Organization [employer] Address [address] [facility] 7t [place] [address] Care Team Providers Care Hog Tender Name Role Phone Yudy Nae ENVIRONMENTAL PROTECTION OFFICER Primary Care Provider [phone] [phone] Encounter Details Date Type Department Care Team ([facility] Contact Info) Description 05/03/2025 Telephone Giovana [facility] [address] [place] [address] [facility] N[facility] [address] [place] [address] Social History Tobacco Use Types Packs/Day Years [...] t he electric, gas, oil or water [employer] threatened to shut off services in your home? No 10/11/2023 Depression Answer Date Recorded Patient Health Questionnaire-2 Score 0 10/11/2023 Sex and Gender Information Value Date Recorded Sex Assigned at Male 07/20/2022 2:39 PM EST Legal Sex Male 2:37 PM EST Gender Identity Male 07/20/2022 2:39 PM EST Sexual Orientation Straight 07/20/2022 2: 39 PM EST documented as of this encounter Miscellaneous Notes * Telephone Encounter - Herminia Dyer - 05/03/2025 11:54 AM EST Patient called after missing his visit today, stated he just woke up and has missed the appointment. I rebooked his appointment. He also asked if he could a prescription for antibiotics related to his skin on his hands cracking, worried about a skin infection. He also stated he might go back to the ER, feels like he is swelling again. I checked with nursing on the antibiotic request, advised urg ent care or ER. I relayed the recommendation to the patient, who agreed. documented in this encounter Plan of Treatment Upcoming Encounters Date Type Department Care Team (Late st Contact Info) Description 05/08/2025 11:40 AM EST Office Visit Giovana [facility] [address] [place] [address] [place], [place] [facility] [address] [place] [address] documented as of this encounter Visit Diagnoses Not on filedocumented in this encounter Care Teams Hog Tender Relationship Specialty Start Date End Date [place], [place] [facility] [address] [place] [address] PCP - General Family Medicine 08/12/22 documented as of this encounter
--- OUTSIDE RECORDS SUMMARY | 2025-05-05 07:22 | XMS_ITS | Clinical Summary ---
Author Organization [employer] Address [address] [place] [address] 7t [place] [address] Care Team Providers Care Tobacco Cutter Name Role Phone Nae Jimenes JEANIE Primary Care Provider [phone] [phone] Allergies Active Allergy Reactions Criticality Noted Date [...] Active Problems Problem Noted Date Diagnosed Date Hepatic steatosis 05/03/2025 Primary hypertension 10/11/2023 Erectile dysfunction 10/11/2023 COVID-19 vaccine series declined 09/07/2022 Encounters Date Type Department Care Team Description 05/03/2025 Telephone [facility] [address] [place] [address] [facility] 04/26/2025 Travel 04/23/2025 Telephone [facility] Information Management [address] [place] [address] [facility] hospital discharge, obtain hospital records 04/22/2025 Orders Only [facility] Information [facility] [address] [place] [address] [facility] 04/14/2025 Telephone [facility] [address] [place] [address] [facility] OV notes 04/11/2025 11:00 AM EST Office Visit [facility] 70 [place] [address] [facility] Closed extra-articular fracture of distal end of left tibia, sequela (Primary Dx); Closed fracture of distal end of left fibula, unspecified fracture morphology, sequela; Closed nondisplaced fracture of first metatarsal bone of left foot, sequela; Primary hypertension; Erectile dysfunction, unspecified erectile dysfunction type; Acute cough; Alcohol use disorder 04/11/2025 Telephone [facility] [address] [place] [address] [facility] 04/11/2025 Orders Only [facility] Information [facility] [address] [place] [address] [facility] 04/11/2025 Telephone [facility] [address] [place] [address] [facility] Prior Authorization (cialis) 04/08/2025 Travel 02/27/2025 Refill [facility] [address] [place] [address] [facility] Nae MARKETING ADMINISTRATIVE ASSISTANT Primary hypertension 02/25/2025 Refill [place] [address] [place] [address] [facility] Nae, [facility] Erectile dysfunction, unspecified erectile dysfunction type from [...] 05/08/2025 11:40 AM EST Office Visit Giovana [facility] [address] [place] [address] [place], [place] [facility] [address] [place] [address] Health Maintenance Due Date Last Done Comments CT Colonography 1973 Colonoscopy 1973 FIT 1973 Sigmoidoscopy 1973 Alcohol/Substance Use Screening 1985 Family Planning (PISQ) 1988 Hepatitis A Vaccines (1 of 2 - Risk 2-dose series) 1992 Hepatitis B Vaccines (1 of 3 - 19+ 3-dose series) 1992 Pneumococcal Vaccine: 50+ Years (1 of 1 - PCV) 09/04/2023 RSV Patients and Patients Aged 60 years or older (1 - Risk 50-74 years 1-dose series) 09/04/2023 Zoster Vaccines (1 of 2) 09/04/2023 FOBT 09/06/2024 09/07/2023 Depression Screening 10/10/2024 10/11/2023, 10/11/2023 SDOH Screening 10/10/2024 10/11/2023 COVID-19 Vaccine (1 - 2024-2 6 season) 2025 Influenza Vaccine (#1) 2025 Disability Screening 04/08/2026 04/08/2025 Tobacco Screening 04/11/2026 04/11/2025 Colorectal Cancer Screening 09/06/2026 FIT DNA/Cologuard 09/06/2026 09/07/2023 DTaP/Tdap/Td Vaccines (3 - T d or Tdap) 05/29/2028 05/29/2018, 01/15/2017 Lipid Panel 10/10/2028 10/11/2023 HIB Vaccines Aged Out No longer eligi [...] (04/22/2025) Anatomical Region Laterality Modality Abdomen Ultrasound [facility] IMG US PROCEDURES Final R esult * XR KNEE 4 OR MORE VIEWS LEFT (04/06/2025) Anatomical Region Laterality Modality Radiographic Elizabeth ging [facility] IMG XR PROCEDURES Final R esult * XR Knee 1-2 Views Bilateral (04/06/2025) Anatomical Region Laterality Modality Lower Extremities, Knee Bilateral Radiogra phic Imaging [facility] IMG XR PROCEDURES Final R esult * XR Ankle 3+ Views Left (04/06/2025) Anatomical Region Laterality Modality Lower Extremities, Ankle Left Radiogr aphic Imaging [facility] IMG XR PROCEDURES Final R esult * Lipid Panel, Standard (10/11/2023) Blood Venous blood specimen / Unknown [facility] LAB BLOOD ORDERABLES Catarina l Result EXTERNAL LAB * Cologuard?? colon cancer screening (09/07/2023) Stool [facility] LAB MOLECULAR DIAGNOSTICS ORDERABLES Final Result EXTERNAL LAB from Last 3 Months or Most Recently Relevant to Health Maintenance Insurance [facility] Care Teams Tobacco Cutter Relationship Specialty Start Date End Date [facility] [address] [place], [place] PCP - General Family Medicine 08/12/22
== END 2025-05-05 07:19 | disposition home or self-care (01) ==
LOC: HO.HOSX 07:18
PROVIDERS: Visit Provider Physician Assistant
DX: Z98.890 Other specified postprocedural states (principal); Z87.81 Personal history of (healed) traumatic fracture
CPT/HCPCS: 29405; 73610; 99212

== ENCOUNTER 2025-05-05 13:51 | Outpatient (AMB) | payer OTHER, SELFPAY ==
--- NOTE | 2025-05-05 14:17 | MHC.OFFVIS ---
Intake Visit Reasons: PO - Left ankle ORIF 04/17/25-W/xray Intake Note: Irvin is a 49 year old male who presents today for a post operative appointment status post Left ankle ORIF done on 04/17/[address] Serrano. Patient reports ?he is doing well. At his last visit patient was placed in a posterior splint. Today we anticipate removal of luz maria and cast placement. Today patient states he has soreness in his ankle. Allergies fentanyl Allergy (Intermediate, Verified 05/05/25 14:21) hives propofol Allergy (Intermediate, Verified 05/05/25 14:21) Itching, Rash acetaminophen Adverse Reaction (Intermediate, Verified 05/05/25 14:21) Liver damage opiates Adverse Reaction (Intermediate, Uncoded 05/05/25 14:21) Itching HPI HPI PO - Left ankle ORIF 04/17/25-W/xray: Details: The patient is a 49-year-old male who presents to the office today for routine follow-up status post left ankle ORIF performed on 04/17/[address] Serrano. Patient reports that he has been doing well overall. He has been nonweightbearing as instructed. Pain is well managed. No additional complaints. [facility] Medical History LFT elevation Renal calculi HTN (hypertension) Lumbar degenerative disc disease Surgical History Hx of eye surgery History of surgery on right wrist History of amputation of finger Hx of repair of rotator cuff Hx of right knee surgery Social History Household Members: Significant Other Housing: Apartment Are you a primary medicare coordinator to a significant other at home: No Do you presently have visiting nurse or other home services: No Alcohol intake: former Patient Tobacco Use Status: Never used Tobacco e-Cigarette/Vaping Use: Never Used service: No Current occupational status: employed 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 No active drainage. No signs of current infection. Luz Maria intact. Able to slightly dorsiflex and plantar flex. Sensation intact. Pedal pulse intact. Psych Appearance: grossly normal Mental Status: mental status grossly normal Attitude: cooperative Office Procedures Casting/Splints 71945-Uladp Leg Cast Application Procedure code (CPT) selection complete Assessment & Plan Assessment & Plan (1) Status post ORIF of fracture of ankle: Code(s): Z98.890 - Other specified postprocedural states; Z87.81 - Personal history of (healed) traumatic fracture Category: Surgical Plan The patient is a 49-year-old male who presents to the office today for routine follow-up status post left ankle ORIF performed on 04/17/[address] Serrano. Patient reports that he has been doing well overall. He has been nonweightbearing as instructed. Pain is well managed. No additional complaints. While in the office today, luz maria removed and Steri-Strips were applied. Patient was placed into a short-leg cast. He will remain nonweightbearing. Patient was educated on cast maintenance and instructed to keep the cast clean, dry, and intact. However, should the cast become wet, dirty, damaged, or there are any concerns please call the office immediately for a cast change. He will follow up in 4 weeks with cast off repeat x-rays, sooner if needed. X-rays of the left ankle which were obtained while in the office today and were reviewed by me, Reina Aguirre PA-C, revealed intact orthopedic hardware with routine healing. Orders: Orders XR ankle LT min 3V 05/05/25 M25.579 - Pain in unspecified ankle and joints of unspecified foot Coding Level of Care Code Global (95733) Diagnoses Status post ORIF of fracture of ankle Z98.890; Z87.81 CPT Codes Casting - CPT: 45175-Bfqin Leg Cast Application ([id number])
--- OUTSIDE RECORDS SUMMARY | 2025-05-05 22:37 | XMS_ITS | Encounter Summary ---
Author Organization [employer] Address [address]t [place] [address] Care Team Providers Care Physician Liaison Name Role Phone Yudy Nae ELECTRONIC EQUIPMENT INSTALLER Primary Care Provider [phone] [phone] Encounter Details Date Type Department Care Team ([facility] Contact Info) Description 05/03/2025 Telephone Giovana [facility] [address] [place] [address] [facility] Nae [facility] [address] [place] [address] Social History Tobacco Use Types Packs/Day Years [...] t he electric, gas, oil or water [employer] threatened to shut off services in your [...] 05/08/2025 11:40 AM EST Office Visit Giovana [facility] [address] [place] [address] [place], [place] [facility] [address] [place] [address] documented as of this encounter Visit Diagnoses Not on filedocumented in this encounter Care Teams Physician Liaison Relationship Specialty Start Date End Date [place], [place] [facility] [address] [place] [address] PCP - General Family Medicine 08/12/22 documented as of this encounter
--- OUTSIDE RECORDS SUMMARY | 2025-05-05 22:37 | XMS_ITS | Encounter Summary ---
Author Organization [employer] Address [address] [facility] 7t [place] [address] Care Team Providers Care Assistant Real Estate Manager Name Role Phone [facility] Primary Care Provider [phone] [phone] Reason for Visit * Reason Comments Med Refill Encounter Details Date Type Department Care Team ([facility] Contact Info) Description 02/25/2025 Refill Giovana [facility] [address] [place] [address] [facility] [address] [place] [address] Erectile dysfunction, unspecified erectile dysfunction type Social [...] 05/08/2025 11:40 AM EST Office Visit Giovana [facility] [address] [place] [address] [facility] NaeJEANIE [address] [place] [address] documented as of this encounter Visit Diagnoses Diagnosis Erectile dysfunction, unspecified erectile dysfunction type documented in this encounter Care Teams Assistant Real Estate Manager Relationship Specialty Start Date End Date [facility] Nae [facility] [address] [place] [address] PCP - General Family Medicine 08/12/22 documented as of this encounter
--- OUTSIDE RECORDS SUMMARY | 2025-05-05 22:37 | XMS_ITS | Encounter Summary ---
Author Organization [employer] Address [address] [facility] 7t [place] [address] Care Team Providers Care Application Project Leader Name Role Phone Nae Jimenes [facility] Primary Care Provider [phone] [phone] Encounter Details Date Type Department Care Team ([facility] st Contact Info) Description 04/11/2025 Orders Only [facility] Information Management [address] [place] [address] [facility] [address] [place] [address] Social History Tobacco Use Types Packs/Day Years [...] the past 12 months, has t he [employer], [employer], oil or water [employer] threatened to shut off services in your [...] 05/08/2025 11:40 AM EST Office Visit Giovana [facility] [address] [place] [address] [facility] 70 [place] [address] documented as of this encounter Procedures Procedure Name Priority Date/Time Associated Diagnosis Comments XR KNEE 4 OR MORE VIEWS LEFT Routine 04/06/2025 XR KNEE 1-2 VIEWS BILATERAL Routine 04/06/2025 XR ANKLE 3+ VIEWS LEFT Routine 04/06/2025 documented in this encounter Results * XR KNEE 4 OR MORE VIEWS LEFT (04/06/2025) Anatomical Region Laterality Modality Radiographic Elizabeth ging [facility] IMG XR PROCEDURES Final R esult * XR Knee 1-2 Views Bilateral (04/06/2025) Anatomical Region Laterality Modality Lower Extremities, Knee Bilateral Radiogra phic Imaging [facility] IMG XR PROCEDURES Final R esult * XR Ankle 3+ Views Left (04/06/2025) Anatomical Region Laterality Modality Lower Extremities, Ankle Left Radiogr aphic Imaging [facility] IMG XR PROCEDURES Final R esult documented in this encounter Visit Diagnoses Not on filedocumented in this encounter Care Teams Application Project Leader Relationship Specialty Start Date End Date [facility] [address] [place] [address] PCP - General Family Medicine 08/12/22 documented as of this encounter
--- OUTSIDE RECORDS SUMMARY | 2025-05-05 22:37 | XMS_ITS | Clinical Summary ---
Author Organization [facility] Address [address] [place] [address] Phone Care Team Providers Care Medical Anthropology Director Name Role Phone Shira Paz MD Primary [...] 2:10 PM EDT [facility] [address] [place] [address] Ute Bain MD Ectasia of cornea, right [...] 11:00 AM EST Office Visit JENNY [facility] [address] [place] [address] Doroteo Connor MD [address] [facility], [address] [place] [address] [email or web address] 08/18/2025 3:00 PM EDT Office Visit [facility] [address] [place] [address] Juju Keating OD [address] [facility], [address] [place] [address] [email or web address] 08/18/2025 3:30 PM EDT Office Visit [facility]NY [facility] [address] [facility] [address] [place] [address] Ute Bain MD [address] [facility], [address] [place] [address] [email or web address] Health Maintenance [...] stable us Ute Holbrook MD OPHTHALMOLOGY MARILIN Padilla Final Result * (ABNORMAL) Lipid panel (10/11/2023 11:05 AM EDT) HDL 69 mg/dL [facility] Comment: Interpretation <40 mg/dL: Low HDL cholesterol (major risk factor for CHD) Greater than or equal to 60 mg/dL: High HDL cholesterol ( negative risk factor for CHD) HDL - cholesterol is affected by a number of factors, e.g. smoking, excerise, hormones, sex and age. CHOLESTEROL 202 0 - 240 mg/dL [facility] TRIGLYCERIDES 113 30 - 160 mg/dL [facility] LDL 110 50 - 129 mg/dL [facility] Comment: LDL levels in terms of risk for coronary heart disease: <100 mg/dL: Optimal 100-129 mg/dL: Near or above optimal 130-159 mg/dL: Borderline high 160-189 mg/dL: High >190 mg/dL: Very High CARDIAC RISK RATIO 2.9(L) 3.4 - 5.0 [facility] Blood 10/11/2023 11:0 5 AM EDT 10/11/2023 11:09 AM EDT Nae Jimenes MACHINE GRINDER LAB BLOOD BKR ORDERABL ES Final Result [facility] [address] [place] [address] from Last 3 Months or Most Recently Relevant to Health Maintenance Insurance [employer] DIRECT C-Note PLANS DIRECT C-Note PLANS DIRECT C-Note PLANS DIRECT DIRECT C-Note PLANS DIRECT Care Teams Medical Anthropology Director Relationship Specialty Start Date End Date Shira Paz MD [address] [place] [address] [email or web address] PCP - General Family Medicine 06/12/24 Additional Source Comments The information contained in this document represents components of the legal health record. It is not the complete legal health record.[facility]
--- OUTSIDE RECORDS SUMMARY | 2025-05-05 22:37 | XMS_ITS | Encounter Summary ---
Author Organization [employer] Address [address] [facility] 7t [place] [address] Care Team Providers Care Inspector Hairspring Truing Name Role Phone Nae Jimenes [facility] Primary Care Provider [phone] [phone] Encounter Details Date Type Department Care Team ([facility] st Contact Info) Description 04/22/2025 Orders Only [facility] Information Management [address] [place] [address] [facility] [address] [place] [address] Social History Tobacco Use Types Packs/Day Years [...] the past 12 months, has t he [employer], [employer], oil or water company threatened to shut [...] 05/08/2025 11:40 AM EST Office Visit Giovana [facility] 70 [place] [address] [facility] [address] [place] [address] documented as of this encounter Procedures Procedure Name Priority Date/Time Associated Diagnosis Comments US ABDOMEN Routine 04/22/2025 documented in this encounter Results * US Abdomen (04/22/2025) Anatomical Region Laterality Modality Abdomen Ultrasound us [facility] IM US PROCEDURES Final R esult documented in this encounter Visit Diagnoses Not on filedocumented in this encounter Care Teams Inspector Hairspring Truing Relationship Specialty Start Date End Date Nae Jimenes FNP [address] [place] [address] PCP - General Family Medicine 08/12/22 documented as of this encounter
--- OUTSIDE RECORDS SUMMARY | 2025-05-05 22:37 | XMS_ITS | Clinical Summary ---
Author Organization [employer] Address [address] [place] [address] 7t [place] [address] Care Team Providers Care Impregnator Electrolytic Capacitors Name Role Phone Nae Jimenes JEANIE Primary Care Provider +1 [phone] Allergies Active Allergy Reactions Criticality Noted Date [...] Type Department Care Team Description 05/03/2025 Telephone [facility] [address] [place] [address] [facility] 04/26/2025 Travel 04/23/2025 Telephone [facility] Information Management [address] [place] [address] [facility] hospital discharge, obtain hospital records 04/22/2025 Orders Only [facility] Information [facility] [address] [place] [address] [facility] 04/14/2025 Telephone [facility] [address] [place] [address] [facility] OV notes 04/11/2025 11:00 AM EST Office Visit [facility] 70 [place] [address] [facility] Closed extra-articular fracture of distal end of left tibia, sequela (Primary Dx); Closed fracture of distal end of left fibula, unspecified fracture morphology, sequela; Closed nondisplaced fracture of first metatarsal bone of left foot, sequela; Primary hypertension; Erectile dysfunction, unspecified erectile dysfunction type; Acute cough; Alcohol use disorder 04/11/2025 Telephone [facility] [address] [place] [address] [facility] 04/11/2025 Orders Only [facility] Information [facility] [address] [place] [address] [facility] 04/11/2025 Telephone [facility] [address] [place] [address] [facility] Prior Authorization (cialis) 04/08/2025 Travel 02/27/2025 Refill [facility] [address] [place] [address] [facility] Nae MOSQUITO SPRAYER Primary hypertension 02/25/2025 Refill [place] [facility] [address] [place] [address] [facility] Nae, [facility] Erectile dysfunction, unspecified erectile dysfunction type from [...] 05/08/2025 11:40 AM EST Office Visit Giovana [facility] [address] [place] [address] [place], [place] [facility] [address] [place] [address] Health Maintenance Due Date Last Done Comments [...] (04/22/2025) Anatomical Region Laterality Modality Abdomen Ultrasound [facility] IMG US PROCEDURES Final R esult * XR KNEE 4 OR MORE VIEWS LEFT (04/06/2025) Anatomical Region Laterality Modality Radiographic Elizabeth ging [facility] IMG XR PROCEDURES Final R esult * XR Knee 1-2 Views Bilateral (04/06/2025) Anatomical Region Laterality Modality Lower Extremities, Knee Bilateral Radiogra phic Imaging [facility] IMG XR PROCEDURES Final R esult * XR Ankle 3+ Views Left (04/06/2025) Anatomical Region Laterality Modality Lower Extremities, Ankle Left Radiogr aphic Imaging [facility] IMG XR PROCEDURES Final R esult * Lipid Panel, Standard (10/11/2023) Blood Venous blood specimen / Unknown [facility] LAB BLOOD ORDERABLES Catarina l Result EXTERNAL LAB * Cologuard?? colon cancer screening (09/07/2023) Stool [facility] LAB MOLECULAR DIAGNOSTICS ORDERABLES Final Result EXTERNAL LAB from Last 3 Months or Most Recently Relevant to Health Maintenance Insurance [facility] Care Teams Impregnator Electrolytic Capacitors Relationship Specialty Start Date End Date [facility] [address] [place], [place] PCP - General Family Medicine 08/12/22
== END 2025-05-05 15:24 | disposition home or self-care (01) ==
LOC: HO.HOS 13:52
PROVIDERS: PCP Nurse Practitioner; Visit Provider Physician Assistant
DX: Z87.81 Personal history of (healed) traumatic fracture (principal); Z98.890 Other specified postprocedural states
CPT/HCPCS: 29405; 99024

== ENCOUNTER → 2025-05-05 13:53 | Outpatient (BNV) | payer OTHER, SELFPAY | PROVIDERS: Visit Provider Radiology Diagnostic Radiology | DX: M25.572 Pain in left ankle and joints of left foot (principal) | CPT/HCPCS: 73610 ==

== ENCOUNTER 2025-05-26 09:11 | Outpatient (AMB) | payer OTHER, SELFPAY ==
--- NOTE | 2025-05-26 09:20 | MHC.OFFVIS ---
Intake Visit Reasons: PO - cast change- LT ankle ORIF 04/17/25 Intake Note: Irvin is a 49 year old male who presents today for a cast change status post left ankle ORIF, performed by Dr. Serrano on 04/17/25. Patient reports throbbing sensation in his ankle. His cast is c at the bottom. Allergies fentanyl Allergy (Intermediate, Verified 05/05/25 14:21) hives propofol Allergy (Intermediate, Verified 05/05/25 14:21) Itching, Rash acetaminophen Adverse Reaction (Intermediate, Verified 05/05/25 14:21) Liver damage opiates Adverse Reaction (Intermediate, Uncoded 05/05/25 14:21) Itching Medication List - Last Reconciled 05/26/25 by Maria Dolores Reed PA-C acetaminophen 650 mg PO Q6H PRN calcium carbonate (Antacid Ext Str (calcium carb)) 2.5 tabs PO Q4H PRN 30 days diphenhydramine HCl 25 mg PO BEDTIME PRN furosemide 40 mg See Protocol PO BID@0800,1400 30 days ibuprofen 800 mg PO Q8H PRN 30 days losartan 25 mg PO DAILY 30 days magnesium hydroxide (Milk of Magnesia) 30 mL PO DAILY PRN 30 days melatonin 6 mg (2 x 3 mg) PO BEDTIME PRN oxycodone 5 mg PO Q6H PRN 7 days spironolactone 25 mg See Protocol PO DAILY 30 days tadalafil 20 mg PO DAILY PRN HPI HPI PO - cast change- LT ankle ORIF 04/17/25: Details: Patient presents to the office today for a cast change. He states he had swelling in the ankle and it has subsided which has caused the cast to become loose and uncomfortable. [facility] Medical History LFT elevation Renal calculi HTN (hypertension) Lumbar degenerative disc disease Surgical History Hx of eye surgery History of surgery on right wrist History of amputation of finger Hx of repair of rotator cuff Hx of right knee surgery Social History Household Members: Significant Other Housing: Apartment Are you a primary critical care nurse to a significant other at home: No Do you presently have visiting nurse or other home services: No Alcohol intake: former Patient Tobacco Use Status: Never used Tobacco e-Cigarette/Vaping Use: Never Used service: No Current occupational status: employed 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 Patient will remain nonweightbearing and see us back for his routine postop appointment on 06/03/2025 with cast off and x-rays. Coding Level of Care Code Global (23572) Diagnoses Closed fracture of left distal fibula S82.832A Status post ORIF of fracture of ankle Z98.890; Z87.81 CPT Codes Casting - CPT: 68914-Pnjbw Leg Cast Application ([id number])
--- OUTSIDE RECORDS SUMMARY | 2025-05-26 09:28 | XMS_ITS | Encounter Summary ---
Author Organization [employer] Address [address] [facility] [address] [place] [address] Care Team Providers Care Tool Salvage Worker Name Role Phone [facility] Primary Care Provider [phone] [phone] Reason for Visit * Reason Comments Med Refill Encounter Details Date Type Department Care Team ([facility] Contact Info) Description 02/25/2025 Refill Gi[facility] [address] [place] [address] [facility] [address] [place] [address] Erectile dysfunction, unspecified erectile dysfunction type Social [...] Care Team (Late st Contact Info) Description 07/11/2025 11:40 AM EST Office Visit Giovana [facility] [address] [place] [address] [facility] [address] [place] [address] documented as of this encounter Visit Diagnoses Diagnosis Erectile dysfunction, unspecified erectile dysfunction type documented in this encounter Care Teams Tool Salvage Worker Relationship Specialty Start Date End Date [facility] Nae [facility] [address] [place] [address] PCP - General Family Medicine 08/12/22 documented as of this encounter
--- OUTSIDE RECORDS SUMMARY | 2025-05-26 09:28 | XMS_ITS | Clinical Summary ---
Author Organization [employer] Address [address] [place] [address] 7t [place] [address] Care Team Providers Care Dye Range Operator Name Role Phone Nae Jimenes JEANIE Primary Care Provider [phone] [phone] Allergies Active Allergy Reactions Criticality Noted Date Comments Fentanyl Rash Low 09/07/2022 Propofol Rash Low 09/07/2022 Medications albuterol (ProAir HFA) 108 (90 Base) MCG/ACT inhalerIndicati ons:Community acquired pneumonia, unspecified laterality Inhale 2 puffs every 4 (four) hours if needed for wheezing or shortness of breath. 8.5 g 06/15/19 24 Active tadalafil (Cialis) 5 MG tabletIndicatio ns:Erectile dysfunction, unspecified erectile dysfunction type Take 1 tablet (5 mg) by mouth Once per day. 90 tablet 3 04/11/20 25 026 Active losartan (Cozaar) 25 MG tablet Take 25 mg by mouth Once per day. 04/23/20 25 Active oxyCODONE (Roxicodone) 5 MG immediate release tablet Take 5 mg by mouth every 4 (four) hours if needed for severe pain. Active spironolactone (Aldactone) 25 MG tablet Take 25 mg by mouth 1 (one) time. 04/23/20 25 Active losartan (Cozaar) 50 MG tabletIndicatio ns:Primary hypertension Take 1 tablet (50 mg) by mouth Once per day. 90 tablet 05/14/20 25 Active furosemide (Lasix) 40 MG tabletIndicatio ns:Acute congestive heart failure, unspecified heart failure type (HCC) Take 1 tablet (40 mg) by mouth 2 times daily. 180 tablet 05/14/20 Active amLODIPine (Norvasc) 10 MG tabletIndicatio ns:Primary hypertension Take 1 tablet (10 mg) by mouth Once per day. 90 tablet 3 04/11/20 025 Discontinued amoxicillin-cla vulanate (Augmentin) 875-125 MG tablet Take 875 mg by mouth 2 times daily. 025 Discontinued furosemide (Lasix) 40 MG tablet Take 40 mg by mouth 2 times daily. 04/20/20 025 Discontinued(Re order (will not trigger notification to Pharmacy)) Active Problems Problem Noted Date Diagnosed Date Fatty liver 05/14/2025 Acute congestive heart failure 05/14/2025 Anasarca 05/14/2025 Alcohol use disorder 05/14/2025 Hepatic steatosis 05/03/2025 Primary hypertension 10/11/2023 Erectile dysfunction 10/11/2023 COVID-19 vaccine series declined 09/07/2022 Encounters Date Type Department Care Team Description 05/14/2025 2:00 PM EST Office Visit [facility] [address] [place] [address] [facility] Hospital discharge follow-up (Primary Dx); Acute congestive heart failure, unspecified heart failure type (HCC); Anasarca; Fatty liver; Alcohol use disorder; Primary hypertension; Closed fracture of distal end of left fibula, unspecified fracture morphology, sequela 05/08/2025 Travel 05/03/2025 Telephone [facility] [address] [place] [address] [facility] 04/26/2025 Travel 04/23/2025 Telephone [facility] [address] [place] [address] Nae Jimenes FNP hospital discharge, obtain hospital records 04/22/2025 Orders Only [facility] [address] [place] [address] Nae Jimenes FNP 04/14/2025 Telephone [facility] [address] [place] [address] Nae Jimenes [facility] OV notes 04/11/2025 11:00 AM EST Office Visit [facility] [address] [place] [address] [place], [place] [facility] Closed extra-articular fracture of distal end of left tibia, sequela (Primary Dx); Closed fracture of distal end of left fibula, unspecified fracture morphology, sequela; Closed nondisplaced fracture of first metatarsal bone of left foot, sequela; Primary hypertension; Erectile dysfunction, unspecified erectile dysfunction type; Acute cough; Alcohol use disorder 04/11/2025 Telephone [facility] [address] [place] [address] [place], [place] [facility] 04/11/2025 Orders Only [facility] [address] [place] [address] [place], [place] [facility] 04/11/2025 Telephone [facility] [address] [place] [address] [place], [place] [facility] Prior Authorization (suzette) 04/08/2025 Travel 02/27/2025 Refill [facility] [address] [place] [address] [facility] Primary hypertension 02/25/2025 Refill [facility] [address] [place] [address] [facility] Erectile dysfunction, unspecified erectile dysfunction type from [...] Sign Reading Time Taken Comments Blood Pressure 146/84 05/14/2025 2:11 PM EST Pulse 76 05/14/2025 2:11 PM EST Temperature 36.9 C (98.4 F) 05/14/2025 2:11 PM EST Respiratory Rate 16 10/11/2023 10:04 AM EDT Oxygen Saturation 97% 05/14/2025 2:11 PM EST Inhaled Oxygen Concentration - - Weight 128 kg (282 lb) 05/14/2025 2:11 PM EST Height 188 cm (6' 2 ) 05/14/2025 2:11 PM EST Body Mass Index 36.21 05/14/2025 2:11 PM EST Plan of Treatment Upcoming Encounters Date Type Department Care Team (Late st Contact Info) Description 07/11/2025 11:40 AM EST Office Visit Giov[facility] [address] [place] [address] Nae Jimenes FNP [address] [place] [address] Health Maintenance Due Date Last Done Comments CT Colonography 1973 Colonoscopy 1973 FIT 1973 Sigmoidoscopy 1973 Alcohol/Substance Use Screening 1985 Family Planning (PISQ) 1988 Hepatitis A Vaccines (1 of 2 - Risk 2-dose series) 1992 Hepatitis B Vaccines (1 of 3 - 19+ 3-dose series) 1992 Pneumococcal Vaccine: 50+ Years (1 of 2 - PCV) 1992 RSV Patients and Patients Aged 60 years or older (1 - Risk 50-74 years 1-dose series) 09/04/2023 Zoster Vaccines (1 of 2) 09/04/2023 FOBT 09/06/2024 09/07/2023 Depression Screening 10/10/2024 10/11/2023, 10/11/2023 SDOH Screening 10/10/2024 10/11/2023 COVID-19 Vaccine (1 - 2024-2 6 season) 2025 Influenza Vaccine (#1) 2025 Disability Screening 04/08/2026 04/08/2025 Tobacco Screening 05/14/2026 05/14/2025 Colorectal Cancer Screening 09/06/2026 FIT DNA/Cologuard 09/06/2026 [...] (04/22/2025) Anatomical Region Laterality Modality Abdomen Ultrasound [facility] IMG US PROCEDURES Final R esult * XR KNEE 4 OR MORE VIEWS LEFT (04/06/2025) Anatomical Region Laterality Modality Radiographic Elizabeth ging [facility] IMG XR PROCEDURES Final R esult * XR Knee 1-2 Views Bilateral (04/06/2025) Anatomical Region Laterality Modality Lower Extremities, Knee Bilateral Radiogra phic Imaging [facility] IMG XR PROCEDURES Final R esult * XR Ankle 3+ Views Left (04/06/2025) Anatomical Region Laterality Modality Lower Extremities, Ankle Left Radiogr aphic Imaging [facility] IMG XR PROCEDURES Final R esult * Lipid Panel, Standard (10/11/2023) Blood Venous blood specimen / Unknown [facility] LAB BLOOD ORDERABLES Catarina l Result EXTERNAL LAB * Cologuard?? colon cancer screening (09/07/2023) Stool [facility] LAB MOLECULAR DIAGNOSTICS ORDERABLES Final Result EXTERNAL LAB from Last 3 Months or Most Recently Relevant to Health Maintenance Insurance [facility] ANISHA SAAVEDRA [id number] Care Teams Dye Range Operator Relationship Specialty Start Date End Date Nae Jimenes [facility] [address] [facility] [place] [address] PCP - General Family Medicine 08/12/22
--- OUTSIDE RECORDS SUMMARY | 2025-05-26 09:28 | XMS_ITS | Encounter Summary ---
Author Organization [employer] Address [address] [facility] 7t [place] [address] Care Team Providers Care Communications Professional Name Role Phone Nae Jimenes [facility] Primary Care Provider [phone] Encounter Details Date Type Department Care Team ([facility] st Contact Info) Description 04/11/2025 Orders Only [facility] [address] [place] [address] [facility] [address] [place] [address] Social History Tobacco Use Types Packs/Day Years [...] the past 12 months, has t he [employer], [employer], oil or water [employer] threatened to shut off services in your [...] 07/11/2025 11:40 AM EST Office Visit Giovana [facility] [address] [place] [address] [facility] [address] [place] [address] documented as of this encounter Procedures Procedure Name Priority Date/Time Associated Diagnosis Comments XR KNEE 4 OR MORE VIEWS LEFT Routine 04/06/2025 XR KNEE 1-2 VIEWS BILATERAL Routine 04/06/2025 XR ANKLE 3+ VIEWS LEFT Routine 04/06/2025 documented in this encounter Results * XR KNEE 4 OR MORE VIEWS LEFT (04/06/2025) Anatomical Region Laterality Modality Radiographic Elizabeth ging [facility] IMG XR PROCEDURES Final R esult * XR Knee 1-2 Views Bilateral (04/06/2025) Anatomical Region Laterality Modality Lower Extremities, Knee Bilateral Radiogra phic Imaging [facility] IMG XR PROCEDURES Final R esult * XR Ankle 3+ Views Left (04/06/2025) Anatomical Region Laterality Modality Lower Extremities, Ankle Left Radiogr aphic Imaging [facility] IMG XR PROCEDURES Final R esult documented in this encounter Visit Diagnoses Not on filedocumented in this encounter Care Teams Communications Professional Relationship Specialty Start Date End Date [facility] [address] [place] [address] PCP - General Family Medicine 08/12/22 documented as of this encounter
--- OUTSIDE RECORDS SUMMARY | 2025-05-26 09:29 | XMS_ITS | Encounter Summary ---
Author Organization [employer] Address [address] [facility] 7t [place] [address] Care Team Providers Care Bicycle I Assembler Name Role Phone Nae Jimenes [facility] Primary Care Provider [phone] Encounter Details Date Type Department Care Team ([facility] st Contact Info) Description 04/22/2025 Orders Only [facility] [address] [place] [address] Nae Jimenes [facility] [address] [place] [address] Social History Tobacco Use Types Packs/Day Years [...] the past 12 months, has t he [employer], oil or water company threatened to shut [...] 07/11/2025 11:40 AM EST Office Visit Giovana [facility] [address] [place] [address] [facility] [address] [place] [address] documented as of this encounter Procedures Procedure Name Priority Date/Time Associated Diagnosis Comments US ABDOMEN Routine 04/22/2025 documented in this encounter Results * US Abdomen (04/22/2025) Anatomical Region Laterality Modality Abdomen Ultrasound us [facility] IM US PROCEDURES Final R esult documented in this encounter Visit Diagnoses Not on filedocumented in this encounter Care Teams Bicycle I Assembler Relationship Specialty Start Date End Date Nea Jimenes FNP [address] [place] [address] PCP - General Family Medicine 08/12/22 documented as of this encounter
--- OUTSIDE RECORDS SUMMARY | 2025-05-26 09:29 | XMS_ITS | Clinical Summary ---
Author Organization [facility] Address [address] [place] [phone] Phone Care Team Providers Care Aircraft Mechanic Electrical And Radio Name Role Phone Shira Paz MD Primary Care Provider [phone] Allergies Active Allergy Reactions Criticality Noted Date [...] Additional Information Patient not taking.Reported on 02/18/2025 Social History Tobacco Use Types Packs/Day Years [...] Description 06/09/2025 11:00 AM EST Office Visit [facility] [address] [facility] [address] [place] [address] Doroteo Connor MD [address] [facility], [address] [place] [address] [email or web address] 08/18/2025 3:00 PM EDT Office Visit [facility] [address] [facility] [address] [place] [address] Juju Keating OD [address] [facility], [address] [place] [address] [email or web address] 08/18/2025 3:30 PM EDT Office Visit [facility] [address] [facility] [address] [place] [address] Ute Bain MD [address] [facility], [address] [place] [address] [email or web address] Health Maintenance Due Date Last [...] Name Priority Date/Time Associated Diagnosis Comments LIPID PANEL Routine 10/11/2023 11:05 AM EDT Erectile dysfunction, unspecified erectile dysfunction type Screening for lipid disorders Primary hypertension from Last 3 Months or Most Recently Relevant to Health Maintenance Results * (ABNORMAL) Lipid panel (10/11/2023 11:05 AM EDT) HDL 69 mg/dL [facility] Comment: Interpretation <40 mg/dL: Low HDL cholesterol (major risk factor for CHD) Greater than or equal to 60 mg/dL: High HDL cholesterol ( negative risk factor for CHD) HDL - cholesterol is affected by a number of factors, e.g. smoking, excerise, hormones, sex and age. CHOLESTEROL 202 0 - 240 mg/dL [facility] TRIGLYCERIDES 113 30 - 160 mg/dL [facility] LDL 110 50 - 129 mg/dL [facility] Comment: LDL levels in terms of risk for coronary heart disease: <100 mg/dL: Optimal 100-129 mg/dL: Near or above optimal 130-159 mg/dL: Borderline high 160-189 mg/dL: High >190 mg/dL: Very High CARDIAC RISK RATIO 2.9(L) 3.4 - 5.0 C [facility] Blood 10/11/2023 11:0 5 AM EDT 10/11/2023 11:09 AM EDT Nae Jimenes [employer] LAB BLOOD BKR ORDERABL ES Final Result [address] [address] from Last 3 Months or Most Recently Relevant to Health Maintenance Insurance [facility] [employer] PLANS DIRECT PLANS [place] [address] [place] [address] PLANS DIRECT [facility] PLANS DIRECT [facility] Application Experts [facility] DIRECT Care Teams Aircraft Mechanic Electrical And Radio Relationship Specialty Start Date End Date Shira Paz MD [address] [place] [address] PCP - General Family Medicine 06/12/24 Additional Source Comments The information contained in this document represents components of the legal health record. It is not the complete legal health record.[facility]
== END 2025-05-26 10:29 | disposition home or self-care (01) ==
PROVIDERS: PCP Nurse Practitioner; Visit Provider Physician Assistant
DX: S82.832A Other fracture of upper and lower end of left fibula, initial encounter for closed fracture (principal); Z98.890 Other specified postprocedural states; Z87.81 Personal history of (healed) traumatic fracture
CPT/HCPCS: 29405; 99024

== ENCOUNTER → 2025-05-26 09:11 | Outpatient (BNVA) | payer OTHER, SELFPAY | PROVIDERS: PCP Nurse Practitioner; Visit Provider Physician Assistant | DX: Z47.89 Encounter for other orthopedic aftercare (principal); S82.832D Other fracture of upper and lower end of left fibula, subsequent encounter for closed fracture with routine healing; Z98.890 Other specified postprocedural states; Z87.81 Personal history of (healed) traumatic fracture; X58.XXXD Exposure to other specified factors, subsequent encounter | CPT/HCPCS: 29405; 99212 ==